=== PATIENT | male | born 1990 | race Asian ===

== ENCOUNTER 2016-10-30 15:21 | Inpatient (IN) | payer OTHER ==
[~2016-10-30] VITALS: Ht 162.6 cm; Wt 65.4 kg
[2016-10-30] MEDS ORDERED: LABETALOL 20 MG/4 ML DISP.SYRIN. IVP ONE (16:15)
[2016-10-30 16:18] LABS: BASO % 0 % (0-3); EOS % 2 % (0-3); HEMATOCRIT 37.7 % (39.0-53.0); HEMOGLOBIN 12.7 g/dL (13.0-17.5); LYMPH # 1.1 x10^3/uL (1.0-4.8); LYMPH % 14 % (24-48); MEAN CORPUSCULAR HEMOGLOBIN 30 pg (25-35); MEAN CORPUSCULAR HGB CONC 34 g/dL (31-37); MEAN CORPUSCULAR VOLUME 91 fL (79-100); MONO % 7 % (0-9); NEUT % 77 % (31-73); PLATELET COUNT 247 x10^3/uL (140-400); RED BLOOD COUNT 4.16 x10^6/uL (4.30-5.70); RED CELL DISTRIBUTION WIDTH 12.5 % (11.5-14.5); WHITE BLOOD COUNT 7.8 x10^3/uL (4.0-11.0)
[2016-10-30 16:20] LABS: BILIRUBIN,URINE NEGATIVE (NEG); GLUCOSE,URINE NEGATIVE (NEG); NITRITE,URINE NEGATIVE (NEG); PH,URINE 5.5; PROTEIN,URINE >=300 mg/dL (NEG-TRACE); UROBILINOGEN,URINE 0.2 mg/dL (0.2 mg/dL)
--- NOTE | 2016-10-30 16:21 | EKG ---
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
--- NOTE | 2016-10-30 16:22 | RAD ---
Indication cough for 3 days. A single view of the chest was obtained. No prior imaging is available. The heart and pulmonary vessels are within normal limits. A focal infiltrate in either lung is not seen. Significant pleural fluid is not present. There is no pneumothorax. IMPRESSION: No acute or focal process seen in the chest
[2016-10-30 16:34] LABS: BACTERIA,URINE 0 /HPF (0-FEW); RBC,URINE >40 /HPF (0-2)
[2016-10-30 16:34] LABS: POTASSIUM ISTAT 5.2 mmol/L (3.5-5.0)
[2016-10-30 16:37] LABS: CALCIUM 8.3 mg/dL (8.5-10.1); CREATININE 5.8 mg/dL (0.7-1.3); POTASSIUM 5.3 mmol/L (3.5-5.1)
[2016-10-30 16:43] LABS: ALBUMIN 2.4 g/dL (3.4-5.0); ALBUMIN/GLOBULIN RATIO 0.7 (1.0-1.7); TOTAL BILIRUBIN 0.3 mg/dL (0.2-1.0); TOTAL PROTEIN 5.8 g/dL (6.4-8.2)
--- NOTE | 2016-10-30 17:17 | PHYS DOC ---
Past Medical History Past Medical History: No Pertinent History Past Surgical History: No Surgical History Alcohol Use: Occasionally Drug Use: None Adult General Chief Complaint Chief Complaint: LOWER EXTREMITY SWELLING HPI HPI Patient is a 25 year old male who presents with complaint of bilateral lower extremity swelling. Patient states his symptoms started 3 weeks ago. Patient states that he has gradually worsened during that time. Patient also notes that he started noticing penile swelling approximately 2 weeks prior to his visit today. Patient denies any fevers, chest pain, or shortness of breath. Patient does admit to mild persistent cough. Patient has not had any recent travel from the [facility]. Patient denies any significant past medical history and does not take any medications on a regular basis. Due to persistent and worsening symptoms the patient came to the emergency department for evaluation. Patient does not follow with a primary care physician at this time. Review of Systems Review of Systems Constitutional: Denies fever or chills [] Eyes: Denies change in visual acuity, redness, or eye pain [] HENT: Denies nasal congestion or sore throat [] Respiratory: Cough, denies shortness breath [] Cardiovascular: Bilateral lower extremity edema, denies chest pain [] GI: Denies abdominal pain, nausea, vomiting, bloody stools or diarrhea [] : Denies dysuria or hematuria [] Musculoskeletal: Denies back pain or joint pain [] Integument: Denies rash or skin lesions [] Neurologic: Denies headache, focal weakness or sensory changes [] Current Medications Current Medications Current Medications Medications (Trade) Dose Ordered Sig/Alexander Start Time Stop Time Status Last Admin Dose Admin Labetalol HCl (Normodyne) 20 mg 1X ONCE 10/30/16 16:15 10/30/16 16:16 DC 10/30/16 16:21 20 MG Allergies Allergies Allergies Coded Allergies Type Severity Reaction Last Updated Verified No Known Drug Allergies 10/30/16 No Physical Exam Physical Exam Constitutional: Alert, afebrile, no acute distress. [] HENT: Normocephalic, atraumatic, bilateral external ears normal, oropharynx moist, no oral exudates, nose normal. [] Eyes: PERRLA, EOMI, conjunctiva normal, no discharge. [] Neck: Normal range of motion, no tenderness, jugular venous pulsations and distention present, supple, no stridor. [] Cardiovascular:Heart rate regular rhythm, no murmur [] Lungs & Thorax: Bilateral breath sounds clear to auscultation [] Abdomen: Bowel sounds normal, soft, no tenderness, no masses, no pulsatile masses. : Uncircumcised, mild to moderate edema of foreskin and scrotum present, no erythema [] Skin: Warm, dry, no erythema, no rash. [] Back: No tenderness, no CVA tenderness. [] Extremities: No tenderness, no cyanosis, no clubbing, ROM intact, 3+ pitting edema in the bilateral lower extremities extending proximally to the bilateral thighs. [] Neurologic: Alert and oriented X 3, normal motor function, normal sensory function, no focal deficits noted. [] Current Patient Data Vital Signs Vital Signs Date Time Temp Pulse Resp B/P Pulse Ox O2 Delivery O2 Flow Rate FiO2 10/30/16 16:21 68 173/114 10/30/16 15:28 98.4 18 98 Room Air 98.4 Lab Values Laboratory Tests Test 10/30/16 16:09 10/30/16 16:18 10/30/16 16:20 White Blood Count 7.8x10^3/uL (4.0-11.0) Red Blood Count 4.16x10^6/uL (4.30-5.70) L Hemoglobin 12.7g/dL (13.0-17.5) L Hematocrit 37.7% (39.0-53.0) L Mean Corpuscular Volume 91fL (79-100) Mean Corpuscular Hemoglobin 30pg (25-35) Mean Corpuscular Hemoglobin Concent 34g/dL (31-37) Red Cell Distribution Width 12.5% (11.5-14.5) Platelet Count 247x10^3/uL (140-400) Neutrophils (%) (Auto) 77% (31-73) H Lymphocytes (%) (Auto) 14% (24-48) L Monocytes (%) (Auto) 7% (0-9) Eosinophils (%) (Auto) 2% (0-3) Basophils (%) (Auto) 0% (0-3) Neutrophils # (Auto) 6.0x10^3uL (1.8-7.7) Lymphocytes # (Auto) 1.1x10^3/uL (1.0-4.8) Monocytes # (Auto) 0.6x10^3/uL (0.0-1.1) Eosinophils # (Auto) 0.1x10^3/uL (0.0-0.7) Basophils # (Auto) 0.0x10^3/uL (0.0-0.2) Urine Collection Type Unknown Urine Color Yellow Urine Clarity Clear Urine pH 5.5 Urine Specific [place] 1.015 Urine Protein >=300mg/dL (NEG-TRACE) Urine Glucose (UA) Negativemg/dL (NEG) Urine Ketones (Stick) Negativemg/dL (NEG) Urine Blood Large (NEG) Urine Nitrite Negative (NEG) Urine Bilirubin Negative (NEG) Urine Urobilinogen Dipstick 0.2mg/dL (0.2 mg/dL) Urine Leukocyte Esterase Negative (NEG) Urine RBC >40/HPF (0-2) Urine WBC 1-4/HPF (0-4) Urine Bacteria 0/HPF (0-FEW) Urine Hyaline Casts Moderate/HPF Urine Granular Casts Few/HPF Urine Waxy Casts Few/HPF Sodium Level 144mmol/L (136-145) Potassium Level 5.3mmol/L (3.5-5.1) H Chloride Level 112mmol/L (98-107) H Carbon Dioxide Level 22mmol/L (21-32) Anion Gap 10 (6-14) 17mmol/L (6-14) H Blood Urea Nitrogen 51mg/dL (8-26) H Creatinine 5.8mg/dL (0.7-1.3) H Estimated GFR (Cockcroft-Gault) 12.0 BUN/Creatinine Ratio 9 (6-20) Glucose Level 106mg/dL (70-99) H 95mg/dL (70-99) Calcium Level 8.3mg/dL (8.5-10.1) L Total Bilirubin 0.3mg/dL (0.2-1.0) Aspartate Amino Transferase (AST) 12U/L (15-37) L Alanine Aminotransferase (ALT) 14U/L (16-63) L Alkaline Phosphatase 89U/L (46-116) Creatine Kinase 118U/L (39-308) Creatine Kinase MB (Mass) 1.0ng/mL (0.0-3.6) Creatine Kinase MB Relative Index 0.8% (0-4) Troponin I Quantitative < 0.017ng/mL (0.000-0.055) UM-Zln-G-Type Natriuretic Peptide 777pg/mL (0-124) H Total Protein 5.8g/dL (6.4-8.2) L Albumin 2.4g/dL (3.4-5.0) L Albumin/Globulin Ratio 0.7 (1.0-1.7) L POC Troponin I 0.01ng/ml (<0.08) POC Hemoglobin 11.2g/dL (14-18) L POC Hematocrit 33% (37-52) L POC Sodium 142mmol/L (135-145) POC Potassium 5.2mmol/L (3.5-5.0) H POC Chloride 111mmol/L (98-110) H POC Total CO2 19mmol/L (23-32) L POC Blood Urea Nitrogen 44mg/dL (8-26) H POC Creatinine 5.9mg/dL (0.5-1.4) H POC Ionized Calcium (Mahad) 1.21mmol/L (1.13-1.32) Laboratory Tests 10/30/16 16:09 Laboratory Tests 10/30/16 16:09 10/30/16 16:20 EKG EKG Interpreted by me: Heart rate 72, sinus rhythm, normal intervals, normal axis, no acute ST elevations or depressions, hyperacute T waves present [] Radiology/Procedures Radiology/Procedures [facility] [address] [place] [address] IMAGING REPORT Signed PATIENT: LOVE RAY ACCOUNT: [id number] : 1990 LOCATION: ER AGE: 25 SEX: M EXAM STATUS: REG ER ORD. PHYSICIAN: JERO TALAVERA MD REASON: edema, cough PROCEDURE: PORTABLE CHEST 1V Indication cough for 3 days. A single view of the chest was obtained. No prior imaging is available. The heart and pulmonary vessels are within normal limits. A focal infiltrate in either lung is not seen. Significant pleural fluid is not present. There is no pneumothorax. IMPRESSION: No acute or focal process seen in the chest DICTATED and SIGNED BY: LITO LACY MD DATE: 10/30/16 1619 CC: JERO TALAVERA MD; NO PCP ~ [] Course & Med Decision Making Course & Med Decision Making Pertinent Labs and Imaging studies reviewed. (See chart for details) Patient was found to have significantly elevated blood pressure in the emergency department and was started on treatment with IV labetalol. The patient 's lab work shows severe acute renal failure and shows a high amount of proteinuria. Etiology of patient's nephrotic syndrome appears unclear. The patient will require admission to the hospital for further treatment of blood pressure and renal failure as well as further evaluation to determine etiology. I spoke with Dr. Chase who accepted care patient in hospital. A consult was placed to Dr. Elena of nephrology to follow with patient in hospital. Dragon Disclaimer Dragon Disclaimer This electronic medical record was generated, in whole or in part, using a voice recognition dictation system. Departure Departure Impression: Primary Impression: Acute renal failure (ARF) Additional Impressions: Proteinuria Peripheral edema Accelerated hypertension Disposition: ADMITTED INPATIENT Admitting Physician: Mariangel Chase Condition: GUARDED Referrals: NO PCP (PCP) Problem Qualifiers Primary Impression: Acute renal failure (ARF) Acute renal failure type: unspecified Qualified Code: N17.9 - Acute kidney failure, unspecified Additional Impressions: Proteinuria Proteinuria type: unspecified Qualified Code: R80.9 - Proteinuria, unspecified JERO TALAVERA MD Oct 30, 2016 17:17
[2016-10-30] MEDS ORDERED: SODIUM POLYSTYRENE SULFONATE 15 GM/60 ML ORAL.SUSP. PO ONE (17:30)
[2016-10-30] MEDS ORDERED: ONDANSETRON PF 4 MG/2 ML VIAL. IV PRN ×2 (17:30)
--- NOTE | 2016-10-30 17:31 | PDOC1 ---
History and Physical Date of Admission Date of Admission 10/30/16 Identification/Chief Complaint Chief Complaint bl leg edema Problems: Source Source: Caregiver, Chart review, Patient History of Present Illness History of Present Illness HPI Patient is a 25 year old male who presents with complaint of bilateral lower extremity swelling for 3 weeks. Pt has stayed in [place], [facility], cannot speak French, his niece helped to translate. Pt has been healthy, first time to notice bl leg edema till groin since 3 weeks ago, no pain or recent travel, denies any infection, N/V, DIarrhea , abd pain recently. He has some cough since 1 month ago, took some cough meds over the counter. Never seen a doc recently. no fever, chills. He said urination looks normal to him. in ER, was found Cr 5. He knew he has HTN, but never took meds. Past Medical History Cardiovascular: HTN Past Surgical History Past Surgical History: No pertinent history Family History Family History: No Significant Social History Smoke: No ALCOHOL: occassional Drugs: None Current Problem List Problem List Problems Medical Problems: (1) Accelerated hypertension Status: Acute (2) Acute renal failure (ARF) Status: Acute (3) Peripheral edema Status: Acute (4) Proteinuria Status: Acute Current Medications Current Medications Current Medications Medications (Trade) Dose Ordered Sig/Alexander Start Time Stop Time Status Last Admin Dose Admin Labetalol HCl (Normodyne) 20 mg 1X ONCE 10/30/16 16:15 10/30/16 16:16 DC 10/30/16 16:21 20 MG Ondansetron HCl (Zofran) 4 mg PRN Q8HRS PRN 10/30/16 17:30 10/31/16 17:29 Allergies Allergies Allergies Coded Allergies Type Severity Reaction Last Updated Verified No Known Drug Allergies 10/30/16 No ROS Review of System CONSTITUTIONAL: No fever or chills EYES: No recent changes SKIN: No rash or itching CARDIOVASCULAR: No chest pain, syncope, palpitations, or edema RESPIRATORY: No SOB or cough GASTROINTESTINAL: No nausea, vomiting or abdominal pain NEUROLOGICAL: No headaches or weakness ENDOCRINE: No cold or heat intolerance GENITOURINARY: No urgency or frequency of urination MUSCULOSKELETAL: No back pain or joint pain LYMPHATICS: No enlarged lymph nodes PSYCHIATRIC: No anxiety or depression Physical Exam Physical Exam GEN.: No apparent distress. Alert and oriented. HEENT: Head is normocephalic, atraumatic NECK: Supple. LUNGS: Clear to auscultation. HEART: RRR, S1, S2 present. Peripheral pulses intact ABDOMEN: Soft, nontender. Positive bowel sounds. EXTREMITIES: Without any cyanosis. bl lower ext 3+edema NEUROLOGIC: Normal speech, normal tone PSYCHIATRIC: Normal affect, normal mood. SKIN: No ulcerations Vitals Vitals Vital Signs Date Time Temp Pulse Resp B/P Pulse Ox O2 Delivery O2 Flow Rate FiO2 10/30/16 16:21 68 173/114 10/30/16 15:28 98.4 18 98 Room Air 98.4 Labs Labs Laboratory Tests Test 10/30/16 16:09 10/30/16 16:18 10/30/16 16:20 White Blood Count 7.8x10^3/uL (4.0-11.0) Red Blood Count 4.16x10^6/uL (4.30-5.70) Hemoglobin 12.7g/dL (13.0-17.5) Hematocrit 37.7% (39.0-53.0) Mean Corpuscular Volume 91fL (79-100) Mean Corpuscular Hemoglobin 30pg (25-35) Mean Corpuscular Hemoglobin Concent 34g/dL (31-37) Red Cell Distribution Width 12.5% (11.5-14.5) Platelet Count 247x10^3/uL (140-400) Neutrophils (%) (Auto) 77% (31-73) Lymphocytes (%) (Auto) 14% (24-48) Monocytes (%) (Auto) 7% (0-9) Eosinophils (%) (Auto) 2% (0-3) Basophils (%) (Auto) 0% (0-3) Neutrophils # (Auto) 6.0x10^3uL (1.8-7.7) Lymphocytes # (Auto) 1.1x10^3/uL (1.0-4.8) Monocytes # (Auto) 0.6x10^3/uL (0.0-1.1) Eosinophils # (Auto) 0.1x10^3/uL (0.0-0.7) Basophils # (Auto) 0.0x10^3/uL (0.0-0.2) Urine Collection Type Unknown Urine Color Yellow Urine Clarity Clear Urine pH 5.5 Urine Specific [place] 1.015 Urine Protein >=300mg/dL (NEG-TRACE) Urine Glucose (UA) Negativemg/dL (NEG) Urine Ketones (Stick) Negativemg/dL (NEG) Urine Blood Large (NEG) Urine Nitrite Negative (NEG) Urine Bilirubin Negative (NEG) Urine Urobilinogen Dipstick 0.2mg/dL (0.2 mg/dL) Urine Leukocyte Esterase Negative (NEG) Urine RBC >40/HPF (0-2) Urine WBC 1-4/HPF (0-4) Urine Bacteria 0/HPF (0-FEW) Urine Hyaline Casts Moderate/HPF Urine Granular Casts Few/HPF Urine Waxy Casts Few/HPF Sodium Level 144mmol/L (136-145) Potassium Level 5.3mmol/L (3.5-5.1) Chloride Level 112mmol/L (98-107) Carbon Dioxide Level 22mmol/L (21-32) Anion Gap 10 (6-14) 17mmol/L (6-14) Blood Urea Nitrogen 51mg/dL (8-26) Creatinine 5.8mg/dL (0.7-1.3) Estimated GFR (Cockcroft-Gault) 12.0 BUN/Creatinine Ratio 9 (6-20) Glucose Level 106mg/dL (70-99) 95mg/dL (70-99) Calcium Level 8.3mg/dL (8.5-10.1) Total Bilirubin 0.3mg/dL (0.2-1.0) Aspartate Amino Transf (AST/SGOT) 12U/L (15-37) Alanine Aminotransferase (ALT/SGPT) 14U/L (16-63) Alkaline Phosphatase 89U/L (46-116) Creatine Kinase 118U/L (39-308) Creatine Kinase MB (Mass) 1.0ng/mL (0.0-3.6) Creatine Kinase MB Relative Index 0.8% (0-4) Troponin I Quantitative < 0.017ng/mL (0.000-0.055) PE-Szx-S-Type Natriuretic Peptide 777pg/mL (0-124) Total Protein 5.8g/dL (6.4-8.2) Albumin 2.4g/dL (3.4-5.0) Albumin/Globulin Ratio 0.7 (1.0-1.7) Bedside Troponin I 0.01ng/ml (<0.08) Bedside Hemoglobin 11.2g/dL (14-18) Bedside Hematocrit 33% (37-52) Bedside Sodium 142mmol/L (135-145) Bedside Potassium 5.2mmol/L (3.5-5.0) Bedside Chloride 111mmol/L (98-110) Bedside Total CO2 19mmol/L (23-32) Bedside Blood Urea Nitrogen 44mg/dL (8-26) Bedside Creatinine 5.9mg/dL (0.5-1.4) Bedside Ionized Calcium (Mahad) 1.21mmol/L (1.13-1.32) Laboratory Tests Test 10/30/16 16:09 10/30/16 16:18 10/30/16 16:20 White Blood Count 7.8x10^3/uL (4.0-11.0) Red Blood Count 4.16x10^6/uL (4.30-5.70) Hemoglobin 12.7g/dL (13.0-17.5) Hematocrit 37.7% (39.0-53.0) Mean Corpuscular Volume 91fL (79-100) Mean Corpuscular Hemoglobin 30pg (25-35) Mean Corpuscular Hemoglobin Concent 34g/dL (31-37) Red Cell Distribution Width 12.5% (11.5-14.5) Platelet Count 247x10^3/uL (140-400) Neutrophils (%) (Auto) 77% (31-73) Lymphocytes (%) (Auto) 14% (24-48) Monocytes (%) (Auto) 7% (0-9) Eosinophils (%) (Auto) 2% (0-3) Basophils (%) (Auto) 0% (0-3) Neutrophils # (Auto) 6.0x10^3uL (1.8-7.7) Lymphocytes # (Auto) 1.1x10^3/uL (1.0-4.8) Monocytes # (Auto) 0.6x10^3/uL (0.0-1.1) Eosinophils # (Auto) 0.1x10^3/uL (0.0-0.7) Basophils # (Auto) 0.0x10^3/uL (0.0-0.2) Urine Collection Type Unknown Urine Color Yellow Urine Clarity Clear Urine pH 5.5 Urine Specific [place] 1.015 Urine Protein >=300mg/dL (NEG-TRACE) Urine Glucose (UA) Negativemg/dL (NEG) Urine Ketones (Stick) Negativemg/dL (NEG) Urine Blood Large (NEG) Urine Nitrite Negative (NEG) Urine Bilirubin Negative (NEG) Urine Urobilinogen Dipstick 0.2mg/dL (0.2 mg/dL) Urine Leukocyte Esterase Negative (NEG) Urine RBC >40/HPF (0-2) Urine WBC 1-4/HPF (0-4) Urine Bacteria 0/HPF (0-FEW) Urine Hyaline Casts Moderate/HPF Urine Granular Casts Few/HPF Urine Waxy Casts Few/HPF Sodium Level 144mmol/L (136-145) Potassium Level 5.3mmol/L (3.5-5.1) Chloride Level 112mmol/L (98-107) Carbon Dioxide Level 22mmol/L (21-32) Anion Gap 10 (6-14) 17mmol/L (6-14) Blood Urea Nitrogen 51mg/dL (8-26) Creatinine 5.8mg/dL (0.7-1.3) Estimated GFR (Cockcroft-Gault) 12.0 BUN/Creatinine Ratio 9 (6-20) Glucose Level 106mg/dL (70-99) 95mg/dL (70-99) Calcium Level 8.3mg/dL (8.5-10.1) Total Bilirubin 0.3mg/dL (0.2-1.0) Aspartate Amino Transf (AST/SGOT) 12U/L (15-37) Alanine Aminotransferase (ALT/SGPT) 14U/L (16-63) Alkaline Phosphatase 89U/L (46-116) Creatine Kinase 118U/L (39-308) Creatine Kinase MB (Mass) 1.0ng/mL (0.0-3.6) Creatine Kinase MB Relative Index 0.8% (0-4) Troponin I Quantitative < 0.017ng/mL (0.000-0.055) ZK-Brq-N-Type Natriuretic Peptide 777pg/mL (0-124) Total Protein 5.8g/dL (6.4-8.2) Albumin 2.4g/dL (3.4-5.0) Albumin/Globulin Ratio 0.7 (1.0-1.7) Bedside Troponin I 0.01ng/ml (<0.08) Bedside Hemoglobin 11.2g/dL (14-18) Bedside Hematocrit 33% (37-52) Bedside Sodium 142mmol/L (135-145) Bedside Potassium 5.2mmol/L (3.5-5.0) Bedside Chloride 111mmol/L (98-110) Bedside Total CO2 19mmol/L (23-32) Bedside Blood Urea Nitrogen 44mg/dL (8-26) Bedside Creatinine 5.9mg/dL (0.5-1.4) Bedside Ionized Calcium (Mahad) 1.21mmol/L (1.13-1.32) VTE Prophylaxis Ordered VTE Prophylaxis Devices: Yes VTE Pharmacological Prophylaxi: Yes Assessment/Plan Assessment/Plan 1. TITUS, 2/2 acute nephritis likely 2. bl leg edema 2/2 1 3. accelerated HTN 4. proteinuria 5. hyperkalemia 6. mild malnutrition plan: 1. renal consult, need full work up for nephritis, defer to renal 2. Renal US 3. KAYexalate 4. add amlodipine for htn dvt ppx SW for insurance problem RORY SHAH MD Oct 30, 2016 17:31
[2016-10-30] MEDS ORDERED: amLODIPine BESYLATE 5 MG TABLET PO SCH (18:00)
--- NOTE | 2016-10-30 18:42 | ACF ---
Admission Forms Criteria RENAL FAILURE, ACUTE Clinical Indications for Admission to Inpatient Care ( Place 'X' for any and all applicable criteria): Admission is indicated for ALL (if I & II) or III of the following [A](2)(3)(4)( 5)(6)(7): [X]I. Acute renal failure as indicated by ANY ONE of the following: [X]a) A 3-fold rise in serum creatinine from baseline [ ]b) Serum creatinine greater than 4 mg/dL (354 micromoles/L) with an acute rise greater than 0.5 mg/dL (44.2 micromoles/L) [ ]c) Reduction of more than 75% in estimated glomerular filtration rate from baseline [ ]d) Estimated glomerular filtration rate less than 35 mL/min/1.73m2 (0.59mL/sec/1.73m2)in a child up to 18 years of age [ ]e) Anuria indicated by ALL of the following: [ ]i) Adequate volume status [ ]ii) Cessation of urine output indicated by ANY ONE of the following: [ ]1) Urine output less than 0.3 mL/kg/hr for 24 hours [ ]2) Anuria (urine output less than 0.1 mL/kg/ hr) for 12 hours [X] II. Renal failure cannot be managed in an outpatient setting or observational care setting as indicating by ANY ONE of the following: [ ]a) Altered mental status that is severe or persistent [ ]b) Volume overload or Respiratory distress (eg, clinically significant pulmonary edema) that is severe or persistent [ ]c) Cardiac arrhythmias of immediate concern [ ]d) Hemodynamic instability [ ]e) Clinically significant electrolyte abnormality that requires inpatient care (eg, hyperkalemia with severe ECG findings)[B] [ ]f) Clinically significant metabolic abnormality (eg, acidosis) that is severe or persistent [ ]g) Acute treatment of renal failure (eg, renal replacement therapy) not feasible or appropriate in observational care setting [ ]h) Clinical situation too unstable or uncertain (eg, inadequate urine output, ongoing decline in renal function, etiology unclear) [ ]i) Necessary support and caregiver ability to comply with outpatient treatment cannot be arranged in observation care timeframe (eg, within 24 hours) [X]j) Other significant finding or clinical condition judged not to be within scope of observation care [ ]III.General contraindications and/or Inappropriate clinical situations for Observational Care in patients with Acute Renal Failure, when ANY ONE of the following is required: [ ]a) Prediction of prolongation of LOS based on ANY ONE of the following may be considered as a contraindication for observational care 2, 3, 4, 5, 6, 7, 8 , 9, 10, 11 [ ]i) Age > 65 yrs. [ ]ii) Patient arriving by ambulance [ ]iii) Patient with high acuity [ ]iv) Patient requiring vital sign monitoring [ ]v) Patient on IV medication [ ]b) Systolic blood pressures 180mmHg 3,12 [ ]c) Patient with altered mental status including delirium and other alteration of consciousness, (3) [ ]d) Patient whose discharge disposition will be to a detention home or rehabilitation home should not be managed in Emergency Department Observation Unit. CMS rule requires 3 days hospital stay before such placement.3,13 [ ]e) Patient with failure to thrive due to broad array of etiologies 3, 16,17 [ ]f) Inability to ambulate 3,14 Extended stay beyond goal length of stay may be needed for(13) [ ]a) Continuing uremic complications [ ]b) Care for comorbidities [ ]c) acute renal failure [ ]d) Need for dialysis The original [employer] content created by [employer] has been revised. The portions of the content which have been revised are identified through the use of italic text or in bold, and [facility] has neither reviewed nor approved the modified material. All other unmodified content is copyright [employer]. Please see references footnoted in the original [facility] edition 2016 Admission Criteria Met?: Yes BRIAN ARELLANO Oct 30, 2016 18:42
--- NOTE | 2016-10-30 18:50 | RAD ---
PROCEDURE Renal sonogram. HISTORY Hypertension. Proteinuria. TECHNIQUE Sonographic imaging of the kidneys and bladder was performed. COMPARISON None. FINDINGS Right kidney measures 10.8 cm pole to pole and the left kidney measures 9.4 cm pole to pole. No solid or cystic renal lesion is seen. There is no hydronephrosis. There are low renal resistive indices. The bladder is unremarkable. The ureteral jets are both seen. The inferior vena cava is prominent in caliber. IMPRESSION 1. Sonographically unremarkable kidneys. 2. Prominent IVC caliber. Electronically signed by: Aidee Jarrett (Oct 30, 2016 18:49:40)
[2016-10-30 20:08] VITALS: BP 143/102
[2016-10-30] MEDS: HEPARIN PF for SUB-Q USE 5,000 UNIT/0.5 ML VIAL. SQ SCH (22:00)
[2016-10-30 22:37] VITALS: BP 166/109
[2016-10-30] MEDS: hydrALAZINE 20 MG/ML VIAL. IVP PRN (22:42)
[2016-10-31 03:00] VITALS: BP 160/110
[2016-10-31] MEDS: hydrALAZINE 20 MG/ML VIAL. IVP PRN (03:18)
[2016-10-31] MEDS: HEPARIN PF for SUB-Q USE 5,000 UNIT/0.5 ML VIAL. SQ SCH ×3 (06:00→21:04)
[2016-10-31 06:02] LABS: BASO # 0.1 x10^3/uL (0.0-0.2); BASO % 1 % (0-3); EOS % 2 % (0-3); HEMATOCRIT 34.6 % (39.0-53.0); HEMOGLOBIN 11.7 g/dL (13.0-17.5); LYMPH # 1.1 x10^3/uL (1.0-4.8); LYMPH % 13 % (24-48); MEAN CORPUSCULAR HEMOGLOBIN 31 pg (25-35); MEAN CORPUSCULAR HGB CONC 34 g/dL (31-37); MEAN CORPUSCULAR VOLUME 90 fL (79-100); MONO % 8 % (0-9); NEUT % 77 % (31-73); PLATELET COUNT 217 x10^3/uL (140-400); RED BLOOD COUNT 3.83 x10^6/uL (4.30-5.70); RED CELL DISTRIBUTION WIDTH 12.5 % (11.5-14.5); WHITE BLOOD COUNT 8.9 x10^3/uL (4.0-11.0)
[2016-10-31 06:16] LABS: CALCIUM 7.9 mg/dL (8.5-10.1); CREATININE 5.9 mg/dL (0.7-1.3); GFR 11.7; POTASSIUM 4.8 mmol/L (3.5-5.1)
[2016-10-31 07:15] VITALS: BP 143/77
[2016-10-31] MEDS: ACETAMINOPHEN 325 MG TABLET. PO PRN (09:15)
[2016-10-31] MEDS: amLODIPine BESYLATE 10 MG TABLET PO SCH (09:15)
[2016-10-31 10:55] LABS: INR 1.1 (0.8-1.1); PROTHROMBIN TIME PATIENT 13.3 SEC (11.7-14.0)
[2016-10-31 11:00] VITALS: BP 145/95
[2016-10-31] MEDS: SODIUM BICARBONATE 650 MG TABLET. PO SCH ×3 (12:39→20:57)
[2016-10-31] MEDS: FUROSEMIDE 40 MG TABLET. PO SCH ×2 (12:39→20:57)
--- NOTE | 2016-10-31 15:00 | PDOC ---
PROGRESS NOTES Chief Complaint Chief Complaint 1. TITUS, 2/2 acute nephritis likely 2. bl leg edema 2/2 1 3. accelerated HTN 4. proteinuria 5. hyperkalemia 6. mild malnutrition History of Present Illness History of Present Illness renal consult following, w/u Renal US s/p KAYexalate on amlodipine Vitals Vitals Vital Signs Date Time Temp Pulse Resp B/P Pulse Ox O2 Delivery O2 Flow Rate FiO2 10/31/16 11:00 96.8 59 18 145/95 100 Room Air 96.8 Physical Exam General: Alert, Oriented X3, Cooperative, No acute distress Heart: Regular rate, No murmurs Abdomen: Normal bowel sounds, Soft Extremities: No clubbing Skin: No rashes Labs LABS Laboratory Tests Test 10/30/16 16:09 10/30/16 16:18 10/30/16 16:20 10/31/16 05:30 White Blood Count 7.8x10^3/uL (4.0-11.0) 8.9x10^3/uL (4.0-11.0) Red Blood Count 4.16x10^6/uL (4.30-5.70) 3.83x10^6/uL (4.30-5.70) Hemoglobin 12.7g/dL (13.0-17.5) 11.7g/dL (13.0-17.5) Hematocrit 37.7% (39.0-53.0) 34.6% (39.0-53.0) Mean Corpuscular Volume 91fL (79-100) 90fL (79-100) Mean Corpuscular Hemoglobin 30pg (25-35) 31pg (25-35) Mean Corpuscular Hemoglobin Concent 34g/dL (31-37) 34g/dL (31-37) Red Cell Distribution Width 12.5% (11.5-14.5) 12.5% (11.5-14.5) Platelet Count 247x10^3/uL (140-400) 217x10^3/uL (140-400) Neutrophils (%) (Auto) 77% (31-73) 77% (31-73) Lymphocytes (%) (Auto) 14% (24-48) 13% (24-48) Monocytes (%) (Auto) 7% (0-9) 8% (0-9) Eosinophils (%) (Auto) 2% (0-3) 2% (0-3) Basophils (%) (Auto) 0% (0-3) 1% (0-3) Neutrophils # (Auto) 6.0x10^3uL (1.8-7.7) 6.8x10^3uL (1.8-7.7) Lymphocytes # (Auto) 1.1x10^3/uL (1.0-4.8) 1.1x10^3/uL (1.0-4.8) Monocytes # (Auto) 0.6x10^3/uL (0.0-1.1) 0.7x10^3/uL (0.0-1.1) Eosinophils # (Auto) 0.1x10^3/uL (0.0-0.7) 0.2x10^3/uL (0.0-0.7) Basophils # (Auto) 0.0x10^3/uL (0.0-0.2) 0.1x10^3/uL (0.0-0.2) Urine Collection Type Unknown Urine Color Yellow Urine Clarity Clear Urine pH 5.5 Urine Specific [place] 1.015 Urine Protein >=300mg/dL (NEG-TRACE) Urine Glucose (UA) Negativemg/dL (NEG) Urine Ketones (Stick) Negativemg/dL (NEG) Urine Blood Large (NEG) Urine Nitrite Negative (NEG) Urine Bilirubin Negative (NEG) Urine Urobilinogen Dipstick 0.2mg/dL (0.2 mg/dL) Urine Leukocyte Esterase Negative (NEG) Urine RBC >40/HPF (0-2) Urine WBC 1-4/HPF (0-4) Urine Bacteria 0/HPF (0-FEW) Urine Hyaline Casts Moderate/HPF Urine Granular Casts Few/HPF Urine Waxy Casts Few/HPF Sodium Level 144mmol/L (136-145) 141mmol/L (136-145) Potassium Level 5.3mmol/L (3.5-5.1) 4.8mmol/L (3.5-5.1) Chloride Level 112mmol/L (98-107) 111mmol/L (98-107) Carbon Dioxide Level 22mmol/L (21-32) 19mmol/L (21-32) Anion Gap 10 (6-14) 17mmol/L (6-14) 11 (6-14) Blood Urea Nitrogen 51mg/dL (8-26) 52mg/dL (8-26) Creatinine 5.8mg/dL (0.7-1.3) 5.9mg/dL (0.7-1.3) Estimated GFR (Cockcroft-Gault) 12.0 11.7 BUN/Creatinine Ratio 9 (6-20) Glucose Level 106mg/dL (70-99) 95mg/dL (70-99) 101mg/dL (70-99) Calcium Level 8.3mg/dL (8.5-10.1) 7.9mg/dL (8.5-10.1) Total Bilirubin 0.3mg/dL (0.2-1.0) Aspartate Amino Transf (AST/SGOT) 12U/L (15-37) Alanine Aminotransferase (ALT/SGPT) 14U/L (16-63) Alkaline Phosphatase 89U/L (46-116) Creatine Kinase 118U/L (39-308) Creatine Kinase MB (Mass) 1.0ng/mL (0.0-3.6) Creatine Kinase MB Relative Index 0.8% (0-4) Troponin I Quantitative < 0.017ng/mL (0.000-0.055) IS-Acs-S-Type Natriuretic Peptide 777pg/mL (0-124) Total Protein 5.8g/dL (6.4-8.2) Albumin 2.4g/dL (3.4-5.0) Albumin/Globulin Ratio 0.7 (1.0-1.7) Bedside Troponin I 0.01ng/ml (<0.08) Bedside Hemoglobin 11.2g/dL (14-18) Bedside Hematocrit 33% (37-52) Bedside Sodium 142mmol/L (135-145) Bedside Potassium 5.2mmol/L (3.5-5.0) Bedside Chloride 111mmol/L (98-110) Bedside Total CO2 19mmol/L (23-32) Bedside Blood Urea Nitrogen 44mg/dL (8-26) Bedside Creatinine 5.9mg/dL (0.5-1.4) Bedside Ionized Calcium (Mahad) 1.21mmol/L (1.13-1.32) Test 10/31/16 10:30 Erythrocyte Sedimentation Rate 29 (0-15) Prothrombin Time 13.3SEC (11.7-14.0) Prothromb Time International Ratio 1.1 (0.8-1.1) Activated Partial Thromboplast Time 32SEC (24-38) Creatine Kinase 91U/L (39-308) Assessment and Plan Assessmemt and Plan Problems Medical Problems: (1) Accelerated hypertension Status: Acute (2) Acute renal failure (ARF) Status: Acute (3) Peripheral edema Status: Acute (4) Proteinuria Status: Acute Problems: Comment Review of Relevant I have reviewed the following items javier (where applicable) has been applied. Labs Laboratory Tests Test 10/30/16 16:09 10/30/16 16:18 10/30/16 16:20 10/31/16 05:30 White Blood Count 7.8x10^3/uL (4.0-11.0) 8.9x10^3/uL (4.0-11.0) Red Blood Count 4.16x10^6/uL (4.30-5.70) 3.83x10^6/uL (4.30-5.70) Hemoglobin 12.7g/dL (13.0-17.5) 11.7g/dL (13.0-17.5) Hematocrit 37.7% (39.0-53.0) 34.6% (39.0-53.0) Mean Corpuscular Volume 91fL (79-100) 90fL (79-100) Mean Corpuscular Hemoglobin 30pg (25-35) 31pg (25-35) Mean Corpuscular Hemoglobin Concent 34g/dL (31-37) 34g/dL (31-37) Red Cell Distribution Width 12.5% (11.5-14.5) 12.5% (11.5-14.5) Platelet Count 247x10^3/uL (140-400) 217x10^3/uL (140-400) Neutrophils (%) (Auto) 77% (31-73) 77% (31-73) Lymphocytes (%) (Auto) 14% (24-48) 13% (24-48) Monocytes (%) (Auto) 7% (0-9) 8% (0-9) Eosinophils (%) (Auto) 2% (0-3) 2% (0-3) Basophils (%) (Auto) 0% (0-3) 1% (0-3) Neutrophils # (Auto) 6.0x10^3uL (1.8-7.7) 6.8x10^3uL (1.8-7.7) Lymphocytes # (Auto) 1.1x10^3/uL (1.0-4.8) 1.1x10^3/uL (1.0-4.8) Monocytes # (Auto) 0.6x10^3/uL (0.0-1.1) 0.7x10^3/uL (0.0-1.1) Eosinophils # (Auto) 0.1x10^3/uL (0.0-0.7) 0.2x10^3/uL (0.0-0.7) Basophils # (Auto) 0.0x10^3/uL (0.0-0.2) 0.1x10^3/uL (0.0-0.2) Urine Collection Type Unknown Urine Color Yellow Urine Clarity Clear Urine pH 5.5 Urine Specific [place] 1.015 Urine Protein >=300mg/dL (NEG-TRACE) Urine Glucose (UA) Negativemg/dL (NEG) Urine Ketones (Stick) Negativemg/dL (NEG) Urine Blood Large (NEG) Urine Nitrite Negative (NEG) Urine Bilirubin Negative (NEG) Urine Urobilinogen Dipstick 0.2mg/dL (0.2 mg/dL) Urine Leukocyte Esterase Negative (NEG) Urine RBC >40/HPF (0-2) Urine WBC 1-4/HPF (0-4) Urine Bacteria 0/HPF (0-FEW) Urine Hyaline Casts Moderate/HPF Urine Granular Casts Few/HPF Urine Waxy Casts Few/HPF Sodium Level 144mmol/L (136-145) 141mmol/L (136-145) Potassium Level 5.3mmol/L (3.5-5.1) 4.8mmol/L (3.5-5.1) Chloride Level 112mmol/L (98-107) 111mmol/L (98-107) Carbon Dioxide Level 22mmol/L (21-32) 19mmol/L (21-32) Anion Gap 10 (6-14) 17mmol/L (6-14) 11 (6-14) Blood Urea Nitrogen 51mg/dL (8-26) 52mg/dL (8-26) Creatinine 5.8mg/dL (0.7-1.3) 5.9mg/dL (0.7-1.3) Estimated GFR (Cockcroft-Gault) 12.0 11.7 BUN/Creatinine Ratio 9 (6-20) Glucose Level 106mg/dL (70-99) 95mg/dL (70-99) 101mg/dL (70-99) Calcium Level 8.3mg/dL (8.5-10.1) 7.9mg/dL (8.5-10.1) Total Bilirubin 0.3mg/dL (0.2-1.0) Aspartate Amino Transf (AST/SGOT) 12U/L (15-37) Alanine Aminotransferase (ALT/SGPT) 14U/L (16-63) Alkaline Phosphatase 89U/L (46-116) Creatine Kinase 118U/L (39-308) Creatine Kinase MB (Mass) 1.0ng/mL (0.0-3.6) Creatine Kinase MB Relative Index 0.8% (0-4) Troponin I Quantitative < 0.017ng/mL (0.000-0.055) BC-Lbl-P-Type Natriuretic Peptide 777pg/mL (0-124) Total Protein 5.8g/dL (6.4-8.2) Albumin 2.4g/dL (3.4-5.0) Albumin/Globulin Ratio 0.7 (1.0-1.7) Bedside Troponin I 0.01ng/ml (<0.08) Bedside Hemoglobin 11.2g/dL (14-18) Bedside Hematocrit 33% (37-52) Bedside Sodium 142mmol/L (135-145) Bedside Potassium 5.2mmol/L (3.5-5.0) Bedside Chloride 111mmol/L (98-110) Bedside Total CO2 19mmol/L (23-32) Bedside Blood Urea Nitrogen 44mg/dL (8-26) Bedside Creatinine 5.9mg/dL (0.5-1.4) Bedside Ionized Calcium (Mahad) 1.21mmol/L (1.13-1.32) Test 10/31/16 10:30 Erythrocyte Sedimentation Rate 29 (0-15) Prothrombin Time 13.3SEC (11.7-14.0) Prothromb Time International Ratio 1.1 (0.8-1.1) Activated Partial Thromboplast Time 32SEC (24-38) Creatine Kinase 91U/L (39-308) Laboratory Tests Test 10/30/16 16:09 10/30/16 16:18 10/30/16 16:20 10/31/16 05:30 White Blood Count 7.8x10^3/uL (4.0-11.0) 8.9x10^3/uL (4.0-11.0) Red Blood Count 4.16x10^6/uL (4.30-5.70) 3.83x10^6/uL (4.30-5.70) Hemoglobin 12.7g/dL (13.0-17.5) 11.7g/dL (13.0-17.5) Hematocrit 37.7% (39.0-53.0) 34.6% (39.0-53.0) Mean Corpuscular Volume 91fL (79-100) 90fL (79-100) Mean Corpuscular Hemoglobin 30pg (25-35) 31pg (25-35) Mean Corpuscular Hemoglobin Concent 34g/dL (31-37) 34g/dL (31-37) Red Cell Distribution Width 12.5% (11.5-14.5) 12.5% (11.5-14.5) Platelet Count 247x10^3/uL (140-400) 217x10^3/uL (140-400) Neutrophils (%) (Auto) 77% (31-73) 77% (31-73) Lymphocytes (%) (Auto) 14% (24-48) 13% (24-48) Monocytes (%) (Auto) 7% (0-9) 8% (0-9) Eosinophils (%) (Auto) 2% (0-3) 2% (0-3) Basophils (%) (Auto) 0% (0-3) 1% (0-3) Neutrophils # (Auto) 6.0x10^3uL (1.8-7.7) 6.8x10^3uL (1.8-7.7) Lymphocytes # (Auto) 1.1x10^3/uL (1.0-4.8) 1.1x10^3/uL (1.0-4.8) Monocytes # (Auto) 0.6x10^3/uL (0.0-1.1) 0.7x10^3/uL (0.0-1.1) Eosinophils # (Auto) 0.1x10^3/uL (0.0-0.7) 0.2x10^3/uL (0.0-0.7) Basophils # (Auto) 0.0x10^3/uL (0.0-0.2) 0.1x10^3/uL (0.0-0.2) Urine Collection Type Unknown Urine Color Yellow Urine Clarity Clear Urine pH 5.5 Urine Specific [place] 1.015 Urine Protein >=300mg/dL (NEG-TRACE) Urine Glucose (UA) Negativemg/dL (NEG) Urine Ketones (Stick) Negativemg/dL (NEG) Urine Blood Large (NEG) Urine Nitrite Negative (NEG) Urine Bilirubin Negative (NEG) Urine Urobilinogen Dipstick 0.2mg/dL (0.2 mg/dL) Urine Leukocyte Esterase Negative (NEG) Urine RBC >40/HPF (0-2) Urine WBC 1-4/HPF (0-4) Urine Bacteria 0/HPF (0-FEW) Urine Hyaline Casts Moderate/HPF Urine Granular Casts Few/HPF Urine Waxy Casts Few/HPF Sodium Level 144mmol/L (136-145) 141mmol/L (136-145) Potassium Level 5.3mmol/L (3.5-5.1) 4.8mmol/L (3.5-5.1) Chloride Level 112mmol/L (98-107) 111mmol/L (98-107) Carbon Dioxide Level 22mmol/L (21-32) 19mmol/L (21-32) Anion Gap 10 (6-14) 17mmol/L (6-14) 11 (6-14) Blood Urea Nitrogen 51mg/dL (8-26) 52mg/dL (8-26) Creatinine 5.8mg/dL (0.7-1.3) 5.9mg/dL (0.7-1.3) Estimated GFR (Cockcroft-Gault) 12.0 11.7 BUN/Creatinine Ratio 9 (6-20) Glucose Level 106mg/dL (70-99) 95mg/dL (70-99) 101mg/dL (70-99) Calcium Level 8.3mg/dL (8.5-10.1) 7.9mg/dL (8.5-10.1) Total Bilirubin 0.3mg/dL (0.2-1.0) Aspartate Amino Transf (AST/SGOT) 12U/L (15-37) Alanine Aminotransferase (ALT/SGPT) 14U/L (16-63) Alkaline Phosphatase 89U/L (46-116) Creatine Kinase 118U/L (39-308) Creatine Kinase MB (Mass) 1.0ng/mL (0.0-3.6) Creatine Kinase MB Relative Index 0.8% (0-4) Troponin I Quantitative < 0.017ng/mL (0.000-0.055) FW-Afh-V-Type Natriuretic Peptide 777pg/mL (0-124) Total Protein 5.8g/dL (6.4-8.2) Albumin 2.4g/dL (3.4-5.0) Albumin/Globulin Ratio 0.7 (1.0-1.7) Bedside Troponin I 0.01ng/ml (<0.08) Bedside Hemoglobin 11.2g/dL (14-18) Bedside Hematocrit 33% (37-52) Bedside Sodium 142mmol/L (135-145) Bedside Potassium 5.2mmol/L (3.5-5.0) Bedside Chloride 111mmol/L (98-110) Bedside Total CO2 19mmol/L (23-32) Bedside Blood Urea Nitrogen 44mg/dL (8-26) Bedside Creatinine 5.9mg/dL (0.5-1.4) Bedside Ionized Calcium (Mahad) 1.21mmol/L (1.13-1.32) Test 10/31/16 10:30 Erythrocyte Sedimentation Rate 29 (0-15) Prothrombin Time 13.3SEC (11.7-14.0) Prothromb Time International Ratio 1.1 (0.8-1.1) Activated Partial Thromboplast Time 32SEC (24-38) Creatine Kinase 91U/L (39-308) Medications Current Medications Labetalol HCl (Normodyne) 20 mg 1X ONCE IVP Last administered on 10/30/16 16: 21; Start 10/30/16 at 16:15; Stop 10/30/16 at 16:16; Status DC Ondansetron HCl (Zofran) 4 mg PRN Q8HRS PRN IV NAUSEA/VOMITING; Start 10/30/16 at 17:30; Stop 10/31/16 at 17:29 Acetaminophen (Tylenol) 650 mg PRN Q6HRS PRN PO FEVER Last administered on 10/31 09:15; Start 10/30/16 at 17:30 Ondansetron HCl (Zofran) 4 mg PRN Q6HRS PRN IV NAUSEA/VOMITING; Start 10/30/16 at 17:30 Hydralazine HCl (Apresoline) 10 mg PRN Q4HRS PRN IVP ELEVATED BP, SEE COMMENTS Last administered on 10/31/16 03:18; Start 10/30/16 at 17:30 Amlodipine Besylate (Norvasc) 10 mg DAILY PO Last administered on 10/30/16 18: 29; Start 10/30/16 at 18:00; Stop 10/30/16 at 23:59; Status DC Sodium Polystyrene Sulfonate (Kayexalate) 15 gm 1X ONCE PO Last administered on 10/30/16 17:34; Start 10/30/16 at 17:30; Stop 10/30/16 at 17:31; Status DC Amlodipine Besylate (Norvasc) 10 mg DAILY PO Last administered on 10/31/16 09: 15; Start 10/31/16 at 09:00 Heparin Sodium (Porcine) 5,000 unit Q8HRS SQ ; Start 10/30/16 at 22:00 Sodium Bicarbonate (Sodium Bicarbonate) 1,300 mg TID PO Last administered on 12:39; Start 10/31/16 at 11:00 Furosemide (Lasix) 40 mg BID PO Last administered on 10/31/16 12:39; Start at 11:00 Vitals/I & O Vital Sign - Last 24 Hours 410/30/16 10/30/16 10/30/16 15:28 16:21 16:30 17:30 Temp 98.4 98.4 Pulse 73 68 66 70 Resp B/P 155/99 173/114 152/103 150/98 Pulse Ox 98 99 99 O2 Delivery Room Air Room Air Room Air 10/30/16 10/30/16 10/30/16 10/30/16 18:29 18:30 19:25 20:08 Temp 97.6 97.6 Pulse 65 64 72 63 Resp B/P 150/115 150/115 167/108 143/102 Pulse Ox 99 99 100 O2 Delivery Room Air Room Air Room Air 10/30/16 10/30/16 10/31/16 10/31/16 22:37 22:42 03:00 03:18 Temp 98.1 98.2 98.1 98.2 Pulse 73 77 79 79 Resp B/P 166/109 167/109 160/110 160/110 Pulse Ox 100 100 O2 Delivery Room Air Room Air 10/31/16 10/31/16 10/31/16 07:15 09:15 11:00 Temp 99.7 96.8 99.7 96.8 Pulse 81 59 Resp B/P 143/77 143/77 145/95 Pulse Ox 97 100 O2 Delivery Room Air Room Air Intake and Output 10/30/16 10/30/16 10/31/16 15:00 23:00 07:00 Intake Total 800 ml Balance 800 ml GEO FLORES MD Oct 31, 2016 15:00
[2016-10-31 15:05] VITALS: BP 159/96
[2016-10-31 15:45] LABS: BILIRUBIN,URINE NEGATIVE (NEG); GLUCOSE,URINE NEGATIVE (NEG); NITRITE,URINE NEGATIVE (NEG); PH,URINE 5.5; PROTEIN,URINE >=300 mg/dL (NEG-TRACE); UROBILINOGEN,URINE 0.2 mg/dL (0.2 mg/dL)
[2016-10-31 15:55] LABS: BACTERIA,URINE 0 /HPF (0-FEW); RBC,URINE 20-40 /HPF (0-2)
[2016-10-31 18:13] LABS: C3 COMPLEMENT 102 mg/dL (82-167); C4 COMPLEMENT 39 mg/dL (14-44)
[2016-10-31 19:00] VITALS: BP 135/88
[2016-10-31 23:00] VITALS: BP 155/109
[2016-11-01] VITALS (7 sets, daily range): BP systolic 129–159; BP diastolic 82–99
[2016-11-01 03:17] LABS: HEP A IGM ABDY Negative (Negative); HEP B SURFACE ABDY Reactive (.)
[2016-11-01 04:54] LABS: BASO % 0 % (0-3); EOS % 3 % (0-3); HEMATOCRIT 34.4 % (39.0-53.0); HEMOGLOBIN 11.6 g/dL (13.0-17.5); LYMPH # 1.3 x10^3/uL (1.0-4.8); LYMPH % 14 % (24-48); MEAN CORPUSCULAR HEMOGLOBIN 31 pg (25-35); MEAN CORPUSCULAR HGB CONC 34 g/dL (31-37); MEAN CORPUSCULAR VOLUME 90 fL (79-100); MONO % 6 % (0-9); NEUT % 77 % (31-73); PLATELET COUNT 242 x10^3/uL (140-400); RED BLOOD COUNT 3.82 x10^6/uL (4.30-5.70); RED CELL DISTRIBUTION WIDTH 12.8 % (11.5-14.5); WHITE BLOOD COUNT 9.2 x10^3/uL (4.0-11.0)
--- NOTE | 2016-11-01 05:07 | CONS ---
DATE OF CONSULTATION: HISTORY OF PRESENT ILLNESS: The patient is a pleasant 25-year-old gentleman of descent, who tells me he is from [place], works at the [employer]. He is not aware of known health problems. He had lower extremity swelling and presented to the ER where he was noted to have significant elevated blood pressure and was admitted to the hospital after he was found to have a creatinine of 5.8. He was also felt to be nephrotic with a serum albumin of 2.4 and a UA showing significant amount of protein as well as large amount of blood and rbc's. No significant wbc's. He does have casts ____ noted on his UA. We are asked to see him for the same. PAST MEDICAL HISTORY: Negative. FAMILY HISTORY: Negative. SOCIAL HISTORY: Occasional alcohol use, no drug use that he admits to. REVIEW OF SYSTEMS: Currently negative other than slight edema in the lower extremities. PHYSICAL EXAMINATION: VITAL SIGNS: 143/77, temp of 99.7, pulse 81, 97% room air. GENERAL: Awake, alert, oriented, in no apparent distress. HEAD: NC/AT. LUNGS: Clear to auscultation. CARDIOVASCULAR: Heart sounds, S1, S2. ABDOMEN: Soft. EXTREMITIES: Lower extremities have +1 edema. EXTERNAL GENITALIA: Deferred. LABORATORY DATA: As mentioned previously, potassium 4.8, bicarb 19, gap 11, BUN 52, creatinine ____ 5.9, calcium 7.9, hemoglobin is 11.7. IMAGING: Renal sonogram, right kidney 10.8 cm, left kidney 9.4 cm. No solid or cystic renal lesions, no hydronephrosis, low renal resistive indices, bladder is unremarkable, ureteral jets seen on both sides, IVC prominent in caliber. IMPRESSION, ASSESSMENT AND PLAN: 1. Acute renal failure, baseline creatinine not known. Suspect acute glomerulonephritis, cannot rule out nephrotic syndrome. 2. Proteinuria. We will quantitate with 24-hour urine. 3. Metabolic acidosis. Oral bicarb will be started. 4. Nephritic appearing urine. Suspect glomerulonephritis. Serologies will be ordered. Coags will be checked. Platelets appear to be adequate as of most recent CBC. No current uremic symptoms. Hence, no role for dialysis just yet. 5. Edema. Low dose Lasix will be started for the time being. 6. Hypertension, appropriately being treated with amlodipine for now and p.r.n. hydralazine. 7. Hyperkalemia. Kayexalate was given and it is better now. May need kidney biopsy in the near future. JORDY URIOSTEGUI MD DR: TOBI/leanna JOB#: [id number] / [id number]
[2016-11-01 05:18] LABS: ALBUMIN/GLOBULIN RATIO 0.6 (1.0-1.7); CREATININE 6.3 mg/dL (0.7-1.3); GFR 10.9; POTASSIUM 4.6 mmol/L (3.5-5.1); TOTAL BILIRUBIN 0.3 mg/dL (0.2-1.0); TOTAL PROTEIN 5.2 g/dL (6.4-8.2)
[2016-11-01] MEDS: HEPARIN PF for SUB-Q USE 5,000 UNIT/0.5 ML VIAL. SQ SCH ×3 (06:00→20:41)
[2016-11-01] MEDS: FUROSEMIDE 40 MG TABLET. PO SCH ×2 (09:34→20:37)
[2016-11-01] MEDS: amLODIPine BESYLATE 10 MG TABLET PO SCH (09:35)
[2016-11-01] MEDS: SODIUM BICARBONATE 650 MG TABLET. PO SCH ×3 (09:35→20:37)
[2016-11-01 11:24] LABS: PTH INTACT 106 pg/mL (15-65)
--- NOTE | 2016-11-01 11:59 | PDOC ---
SUBJECTIVE ROS TITUS pt feels OK overall CVS: no Orthopnea, no CP RESP: no SOB, no GARY GI: no Nausea, no Vomiting : no Dysuria, no Urgency OBJECTIVE Vital Signs Vital Signs Date Time Temp Pulse Resp B/P Pulse Ox O2 Delivery O2 Flow Rate FiO2 11/01/16 11:41 98.7 90 18 129/82 100 Room Air 98.7 I & 0 Intake and Output 11/01/16 07:00 Intake Total 240 ml Output Total 2150 ml Balance -1910 ml Intake Oral 240 ml Output Urine Total 2150 ml PHYSICAL EXAM Physical Exam GENERAL: Awake, alert, oriented, in no apparent distress. HEAD: NC/AT. LUNGS: Clear to auscultation. CARDIOVASCULAR: Heart sounds, S1, S2. ABDOMEN: Soft. EXTREMITIES: Lower extremities have +1 edema. EXTERNAL GENITALIA: Deferred. IMPRESSION, ASSESSMENT AND PLAN: 1. Acute renal failure, baseline creatinine not known. Suspect acute. Temp HD Cath placement glomerulonephritis, cannot rule out nephrotic syndrome. Kidney Bx today 2. Proteinuria. We will quantitate with 24-hour urine. 3. Metabolic acidosis. better with Oral bicarb as started. 4. Nephritic appearing urine. Suspect glomerulonephritis. No current uremic symptoms. Hence, no role for dialysis just yet. 5. Edema. Low dose Lasix will be started for the time being. 6. Hypertension, appropriately being treated with amlodipine for now and p.r.n. hydralazine. 7. Hyperkalemia. resolved Extensive discussion with Pt via manager legal phone re Bx and HD Cath - he agrees to proceed COMMENT/RELEVANT DATA Meds Current Medications Medications (Trade) Dose Ordered Sig/Alexander Start Time Stop Time Status Last Admin Dose Admin Acetaminophen (Tylenol) 650 mg PRN Q6HRS PRN 10/30/16 17:30 10/31/16 09:15 650 MG Amlodipine Besylate (Norvasc) 10 mg DAILY 10/31/16 09:00 11/01/16 09:35 10 MG Furosemide (Lasix) 40 mg BID 10/31/16 11:00 11/01/16 09:34 40 MG Heparin Sodium (Porcine) 5,000 unit Q8HRS 10/30/16 22:00 10/31/16 21:04 5,000 UNIT Hydralazine HCl (Apresoline) 10 mg PRN Q4HRS PRN 10/30/16 17:30 10/31/16 03:18 10 MG Labetalol HCl (Normodyne) 20 mg 1X ONCE 10/30/16 16:15 10/30/16 16:16 DC 10/30/16 16:21 20 MG Ondansetron HCl (Zofran) 4 mg PRN Q6HRS PRN 10/30/16 17:30 Sodium Polystyrene Sulfonate (Kayexalate) 15 gm 1X ONCE 10/30/16 17:30 10/30/16 17:31 DC 10/30/16 17:34 15 GM Sodium Bicarbonate (Sodium Bicarbonate) 1,300 mg TID 10/31/16 11:00 11/01/16 09:35 1,300 MG Lab Laboratory Tests Test 10/31/16 15:38 11/01/16 03:35 Urine Collection Type Unknown Urine Color Yellow Urine Clarity Clear Urine pH 5.5 Urine Specific [place] <=1.005 Urine Protein >=300mg/dL (NEG-TRACE) Urine Glucose (UA) Negativemg/dL (NEG) Urine Ketones (Stick) Negativemg/dL (NEG) Urine Blood Moderate (NEG) Urine Nitrite Negative (NEG) Urine Bilirubin Negative (NEG) Urine Urobilinogen Dipstick 0.2mg/dL (0.2 mg/dL) Urine Leukocyte Esterase Negative (NEG) Urine RBC 20-40/HPF (0-2) Urine WBC 1-4/HPF (0-4) Urine Bacteria 0/HPF (0-FEW) Urine Hyaline Casts Few/HPF Urine Granular Casts Occasional/HPF Urine Waxy Casts Few/HPF Urine Mucus Slight/LPF White Blood Count 9.2x10^3/uL (4.0-11.0) Red Blood Count 3.82x10^6/uL (4.30-5.70) Hemoglobin 11.6g/dL (13.0-17.5) Hematocrit 34.4% (39.0-53.0) Mean Corpuscular Volume 90fL (79-100) Mean Corpuscular Hemoglobin 31pg (25-35) Mean Corpuscular Hemoglobin Concent 34g/dL (31-37) Red Cell Distribution Width 12.8% (11.5-14.5) Platelet Count 242x10^3/uL (140-400) Neutrophils (%) (Auto) 77% (31-73) Lymphocytes (%) (Auto) 14% (24-48) Monocytes (%) (Auto) 6% (0-9) Eosinophils (%) (Auto) 3% (0-3) Basophils (%) (Auto) 0% (0-3) Neutrophils # (Auto) 7.1x10^3uL (1.8-7.7) Lymphocytes # (Auto) 1.3x10^3/uL (1.0-4.8) Monocytes # (Auto) 0.6x10^3/uL (0.0-1.1) Eosinophils # (Auto) 0.3x10^3/uL (0.0-0.7) Basophils # (Auto) 0.0x10^3/uL (0.0-0.2) Sodium Level 142mmol/L (136-145) Potassium Level 4.6mmol/L (3.5-5.1) Chloride Level 110mmol/L (98-107) Carbon Dioxide Level 21mmol/L (21-32) Anion Gap 11 (6-14) Blood Urea Nitrogen 49mg/dL (8-26) Creatinine 6.3mg/dL (0.7-1.3) Estimated GFR (Cockcroft-Gault) 10.9 BUN/Creatinine Ratio 8 (6-20) Glucose Level 98mg/dL (70-99) Calcium Level 8.0mg/dL (8.5-10.1) Total Bilirubin 0.3mg/dL (0.2-1.0) Aspartate Amino Transf (AST/SGOT) 11U/L (15-37) Alanine Aminotransferase (ALT/SGPT) 15U/L (16-63) Alkaline Phosphatase 75U/L (46-116) Total Protein 5.2g/dL (6.4-8.2) Albumin 2.0g/dL (3.4-5.0) Albumin/Globulin Ratio 0.6 (1.0-1.7) JORDY URIOSTEGUI MD Nov 01, 2016 11:59
[2016-11-01] MEDS ORDERED: HEPARIN for IV BOLUS 10,000 UNIT/10 ML VIAL. ONE (13:02)
[2016-11-01] MEDS ORDERED: LIDOCAINE 1% / SOD BICARB 8.4% 20 ML VIAL. IJ ONE ×2 (13:02→13:45)
--- NOTE | 2016-11-01 13:06 | PDOC ---
PROGRESS NOTES Chief Complaint Chief Complaint 1. TITUS, 2/2 acute nephritis likely 2. bl leg edema 3. accelerated HTN 4. proteinuria 5. hyperkalemia 6. mild malnutrition no CHF History of Present Illness History of Present Illness renal consult following, w/u stevan catalan today on amlodipine planning HD, Vitals Vitals Vital Signs Date Time Temp Pulse Resp B/P Pulse Ox O2 Delivery O2 Flow Rate FiO2 11/01/16 11:41 98.7 90 18 129/82 100 Room Air 98.7 Physical Exam General: Alert, Oriented X3, Cooperative, No acute distress Heart: Regular rate, No murmurs Abdomen: Normal bowel sounds, Soft Extremities: No clubbing Skin: No rashes Labs LABS Laboratory Tests Test 10/31/16 15:38 11/01/16 03:35 Urine Collection Type Unknown Urine Color Yellow Urine Clarity Clear Urine pH 5.5 Urine Specific [place] <=1.005 Urine Protein >=300mg/dL (NEG-TRACE) Urine Glucose (UA) Negativemg/dL (NEG) Urine Ketones (Stick) Negativemg/dL (NEG) Urine Blood Moderate (NEG) Urine Nitrite Negative (NEG) Urine Bilirubin Negative (NEG) Urine Urobilinogen Dipstick 0.2mg/dL (0.2 mg/dL) Urine Leukocyte Esterase Negative (NEG) Urine RBC 20-40/HPF (0-2) Urine WBC 1-4/HPF (0-4) Urine Bacteria 0/HPF (0-FEW) Urine Hyaline Casts Few/HPF Urine Granular Casts Occasional/HPF Urine Waxy Casts Few/HPF Urine Mucus Slight/LPF White Blood Count 9.2x10^3/uL (4.0-11.0) Red Blood Count 3.82x10^6/uL (4.30-5.70) Hemoglobin 11.6g/dL (13.0-17.5) Hematocrit 34.4% (39.0-53.0) Mean Corpuscular Volume 90fL (79-100) Mean Corpuscular Hemoglobin 31pg (25-35) Mean Corpuscular Hemoglobin Concent 34g/dL (31-37) Red Cell Distribution Width 12.8% (11.5-14.5) Platelet Count 242x10^3/uL (140-400) Neutrophils (%) (Auto) 77% (31-73) Lymphocytes (%) (Auto) 14% (24-48) Monocytes (%) (Auto) 6% (0-9) Eosinophils (%) (Auto) 3% (0-3) Basophils (%) (Auto) 0% (0-3) Neutrophils # (Auto) 7.1x10^3uL (1.8-7.7) Lymphocytes # (Auto) 1.3x10^3/uL (1.0-4.8) Monocytes # (Auto) 0.6x10^3/uL (0.0-1.1) Eosinophils # (Auto) 0.3x10^3/uL (0.0-0.7) Basophils # (Auto) 0.0x10^3/uL (0.0-0.2) Sodium Level 142mmol/L (136-145) Potassium Level 4.6mmol/L (3.5-5.1) Chloride Level 110mmol/L (98-107) Carbon Dioxide Level 21mmol/L (21-32) Anion Gap 11 (6-14) Blood Urea Nitrogen 49mg/dL (8-26) Creatinine 6.3mg/dL (0.7-1.3) Estimated GFR (Cockcroft-Gault) 10.9 BUN/Creatinine Ratio 8 (6-20) Glucose Level 98mg/dL (70-99) Calcium Level 8.0mg/dL (8.5-10.1) Total Bilirubin 0.3mg/dL (0.2-1.0) Aspartate Amino Transf (AST/SGOT) 11U/L (15-37) Alanine Aminotransferase (ALT/SGPT) 15U/L (16-63) Alkaline Phosphatase 75U/L (46-116) Total Protein 5.2g/dL (6.4-8.2) Albumin 2.0g/dL (3.4-5.0) Albumin/Globulin Ratio 0.6 (1.0-1.7) Assessment and Plan Assessmemt and Plan Problems Medical Problems: (1) Accelerated hypertension Status: Acute (2) Acute renal failure (ARF) Status: Acute (3) Peripheral edema Status: Acute (4) Proteinuria Status: Acute Problems: Comment Review of Relevant I have reviewed the following items javier (where applicable) has been applied. Labs Laboratory Tests Test 10/30/16 16:09 10/30/16 16:18 10/30/16 16:20 10/31/16 05:30 White Blood Count 7.8x10^3/uL (4.0-11.0) 8.9x10^3/uL (4.0-11.0) Red Blood Count 4.16x10^6/uL (4.30-5.70) 3.83x10^6/uL (4.30-5.70) Hemoglobin 12.7g/dL (13.0-17.5) 11.7g/dL (13.0-17.5) Hematocrit 37.7% (39.0-53.0) 34.6% (39.0-53.0) Mean Corpuscular Volume 91fL (79-100) 90fL (79-100) Mean Corpuscular Hemoglobin 30pg (25-35) 31pg (25-35) Mean Corpuscular Hemoglobin Concent 34g/dL (31-37) 34g/dL (31-37) Red Cell Distribution Width 12.5% (11.5-14.5) 12.5% (11.5-14.5) Platelet Count 247x10^3/uL (140-400) 217x10^3/uL (140-400) Neutrophils (%) (Auto) 77% (31-73) 77% (31-73) Lymphocytes (%) (Auto) 14% (24-48) 13% (24-48) Monocytes (%) (Auto) 7% (0-9) 8% (0-9) Eosinophils (%) (Auto) 2% (0-3) 2% (0-3) Basophils (%) (Auto) 0% (0-3) 1% (0-3) Neutrophils # (Auto) 6.0x10^3uL (1.8-7.7) 6.8x10^3uL (1.8-7.7) Lymphocytes # (Auto) 1.1x10^3/uL (1.0-4.8) 1.1x10^3/uL (1.0-4.8) Monocytes # (Auto) 0.6x10^3/uL (0.0-1.1) 0.7x10^3/uL (0.0-1.1) Eosinophils # (Auto) 0.1x10^3/uL (0.0-0.7) 0.2x10^3/uL (0.0-0.7) Basophils # (Auto) 0.0x10^3/uL (0.0-0.2) 0.1x10^3/uL (0.0-0.2) Urine Collection Type Unknown Urine Color Yellow Urine Clarity Clear Urine pH 5.5 Urine Specific [place] 1.015 Urine Protein >=300mg/dL (NEG-TRACE) Urine Glucose (UA) Negativemg/dL (NEG) Urine Ketones (Stick) Negativemg/dL (NEG) Urine Blood Large (NEG) Urine Nitrite Negative (NEG) Urine Bilirubin Negative (NEG) Urine Urobilinogen Dipstick 0.2mg/dL (0.2 mg/dL) Urine Leukocyte Esterase Negative (NEG) Urine RBC >40/HPF (0-2) Urine WBC 1-4/HPF (0-4) Urine Bacteria 0/HPF (0-FEW) Urine Hyaline Casts Moderate/HPF Urine Granular Casts Few/HPF Urine Waxy Casts Few/HPF Sodium Level 144mmol/L (136-145) 141mmol/L (136-145) Potassium Level 5.3mmol/L (3.5-5.1) 4.8mmol/L (3.5-5.1) Chloride Level 112mmol/L (98-107) 111mmol/L (98-107) Carbon Dioxide Level 22mmol/L (21-32) 19mmol/L (21-32) Anion Gap 10 (6-14) 17mmol/L (6-14) 11 (6-14) Blood Urea Nitrogen 51mg/dL (8-26) 52mg/dL (8-26) Creatinine 5.8mg/dL (0.7-1.3) 5.9mg/dL (0.7-1.3) Estimated GFR (Cockcroft-Gault) 12.0 11.7 BUN/Creatinine Ratio 9 (6-20) Glucose Level 106mg/dL (70-99) 95mg/dL (70-99) 101mg/dL (70-99) Calcium Level 8.3mg/dL (8.5-10.1) 7.9mg/dL (8.5-10.1) Total Bilirubin 0.3mg/dL (0.2-1.0) Aspartate Amino Transf (AST/SGOT) 12U/L (15-37) Alanine Aminotransferase (ALT/SGPT) 14U/L (16-63) Alkaline Phosphatase 89U/L (46-116) Creatine Kinase 118U/L (39-308) Creatine Kinase MB (Mass) 1.0ng/mL (0.0-3.6) Creatine Kinase MB Relative Index 0.8% (0-4) Troponin I Quantitative < 0.017ng/mL (0.000-0.055) SA-Wqy-Q-Type Natriuretic Peptide 777pg/mL (0-124) Total Protein 5.8g/dL (6.4-8.2) Albumin 2.4g/dL (3.4-5.0) Albumin/Globulin Ratio 0.7 (1.0-1.7) Bedside Troponin I 0.01ng/ml (<0.08) Bedside Hemoglobin 11.2g/dL (14-18) Bedside Hematocrit 33% (37-52) Bedside Sodium 142mmol/L (135-145) Bedside Potassium 5.2mmol/L (3.5-5.0) Bedside Chloride 111mmol/L (98-110) Bedside Total CO2 19mmol/L (23-32) Bedside Blood Urea Nitrogen 44mg/dL (8-26) Bedside Creatinine 5.9mg/dL (0.5-1.4) Bedside Ionized Calcium (Mahad) 1.21mmol/L (1.13-1.32) Test 10/31/16 10:30 10/31/16 15:38 11/01/16 03:35 Erythrocyte Sedimentation Rate 29 (0-15) Prothrombin Time 13.3SEC (11.7-14.0) Prothromb Time International Ratio 1.1 (0.8-1.1) Activated Partial Thromboplast Time 32SEC (24-38) Estimated GFR (Non- 13 (>59) Creatine Kinase 91U/L (39-308) EGFR 15 (>59) PTH (Intact) Specimen Description Comment (.) Parathyroid Hormone (Intact) 106pg/mL (15-65) Calcium (PTH Intact) 8.2mg/dL (8.7-10.2) Creatinine (PTH Intact) 5.69mg/dL (0.76-1.27) Phosphorus (PTH Intact) 4.5mg/dL (2.5-4.5) Complement C3 102mg/dL (82-167) Complement C4 39mg/dL (14-44) Hepatitis A IgM Antibody Negative (Negative) Hepatitis B Surface Antigen Negative (Negative) Hepatitis B Surface Antibody Reactive (.) Hepatitis B Core Total Antibody Negative (Negative) Hepatitis B Core IgM Antibody Negative (Negative) Hepatitis C Antibody <0.1s/co ratio (0.0-0.9) Urine Collection Type Unknown Urine Color Yellow Urine Clarity Clear Urine pH 5.5 Urine Specific [place] <=1.005 Urine Protein >=300mg/dL (NEG-TRACE) Urine Glucose (UA) Negativemg/dL (NEG) Urine Ketones (Stick) Negativemg/dL (NEG) Urine Blood Moderate (NEG) Urine Nitrite Negative (NEG) Urine Bilirubin Negative (NEG) Urine Urobilinogen Dipstick 0.2mg/dL (0.2 mg/dL) Urine Leukocyte Esterase Negative (NEG) Urine RBC 20-40/HPF (0-2) Urine WBC 1-4/HPF (0-4) Urine Bacteria 0/HPF (0-FEW) Urine Hyaline Casts Few/HPF Urine Granular Casts Occasional/HPF Urine Waxy Casts Few/HPF Urine Mucus Slight/LPF White Blood Count 9.2x10^3/uL (4.0-11.0) Red Blood Count 3.82x10^6/uL (4.30-5.70) Hemoglobin 11.6g/dL (13.0-17.5) Hematocrit 34.4% (39.0-53.0) Mean Corpuscular Volume 90fL (79-100) Mean Corpuscular Hemoglobin 31pg (25-35) Mean Corpuscular Hemoglobin Concent 34g/dL (31-37) Red Cell Distribution Width 12.8% (11.5-14.5) Platelet Count 242x10^3/uL (140-400) Neutrophils (%) (Auto) 77% (31-73) Lymphocytes (%) (Auto) 14% (24-48) Monocytes (%) (Auto) 6% (0-9) Eosinophils (%) (Auto) 3% (0-3) Basophils (%) (Auto) 0% (0-3) Neutrophils # (Auto) 7.1x10^3uL (1.8-7.7) Lymphocytes # (Auto) 1.3x10^3/uL (1.0-4.8) Monocytes # (Auto) 0.6x10^3/uL (0.0-1.1) Eosinophils # (Auto) 0.3x10^3/uL (0.0-0.7) Basophils # (Auto) 0.0x10^3/uL (0.0-0.2) Sodium Level 142mmol/L (136-145) Potassium Level 4.6mmol/L (3.5-5.1) Chloride Level 110mmol/L (98-107) Carbon Dioxide Level 21mmol/L (21-32) Anion Gap 11 (6-14) Blood Urea Nitrogen 49mg/dL (8-26) Creatinine 6.3mg/dL (0.7-1.3) Estimated GFR (Cockcroft-Gault) 10.9 BUN/Creatinine Ratio 8 (6-20) Glucose Level 98mg/dL (70-99) Calcium Level 8.0mg/dL (8.5-10.1) Total Bilirubin 0.3mg/dL (0.2-1.0) Aspartate Amino Transf (AST/SGOT) 11U/L (15-37) Alanine Aminotransferase (ALT/SGPT) 15U/L (16-63) Alkaline Phosphatase 75U/L (46-116) Total Protein 5.2g/dL (6.4-8.2) Albumin 2.0g/dL (3.4-5.0) Albumin/Globulin Ratio 0.6 (1.0-1.7) Laboratory Tests Test 10/31/16 15:38 11/01/16 03:35 Urine Collection Type Unknown Urine Color Yellow Urine Clarity Clear Urine pH 5.5 Urine Specific [place] <=1.005 Urine Protein >=300mg/dL (NEG-TRACE) Urine Glucose (UA) Negativemg/dL (NEG) Urine Ketones (Stick) Negativemg/dL (NEG) Urine Blood Moderate (NEG) Urine Nitrite Negative (NEG) Urine Bilirubin Negative (NEG) Urine Urobilinogen Dipstick 0.2mg/dL (0.2 mg/dL) Urine Leukocyte Esterase Negative (NEG) Urine RBC 20-40/HPF (0-2) Urine WBC 1-4/HPF (0-4) Urine Bacteria 0/HPF (0-FEW) Urine Hyaline Casts Few/HPF Urine Granular Casts Occasional/HPF Urine Waxy Casts Few/HPF Urine Mucus Slight/LPF White Blood Count 9.2x10^3/uL (4.0-11.0) Red Blood Count 3.82x10^6/uL (4.30-5.70) Hemoglobin 11.6g/dL (13.0-17.5) Hematocrit 34.4% (39.0-53.0) Mean Corpuscular Volume 90fL (79-100) Mean Corpuscular Hemoglobin 31pg (25-35) Mean Corpuscular Hemoglobin Concent 34g/dL (31-37) Red Cell Distribution Width 12.8% (11.5-14.5) Platelet Count 242x10^3/uL (140-400) Neutrophils (%) (Auto) 77% (31-73) Lymphocytes (%) (Auto) 14% (24-48) Monocytes (%) (Auto) 6% (0-9) Eosinophils (%) (Auto) 3% (0-3) Basophils (%) (Auto) 0% (0-3) Neutrophils # (Auto) 7.1x10^3uL (1.8-7.7) Lymphocytes # (Auto) 1.3x10^3/uL (1.0-4.8) Monocytes # (Auto) 0.6x10^3/uL (0.0-1.1) Eosinophils # (Auto) 0.3x10^3/uL (0.0-0.7) Basophils # (Auto) 0.0x10^3/uL (0.0-0.2) Sodium Level 142mmol/L (136-145) Potassium Level 4.6mmol/L (3.5-5.1) Chloride Level 110mmol/L (98-107) Carbon Dioxide Level 21mmol/L (21-32) Anion Gap 11 (6-14) Blood Urea Nitrogen 49mg/dL (8-26) Creatinine 6.3mg/dL (0.7-1.3) Estimated GFR (Cockcroft-Gault) 10.9 BUN/Creatinine Ratio 8 (6-20) Glucose Level 98mg/dL (70-99) Calcium Level 8.0mg/dL (8.5-10.1) Total Bilirubin 0.3mg/dL (0.2-1.0) Aspartate Amino Transf (AST/SGOT) 11U/L (15-37) Alanine Aminotransferase (ALT/SGPT) 15U/L (16-63) Alkaline Phosphatase 75U/L (46-116) Total Protein 5.2g/dL (6.4-8.2) Albumin 2.0g/dL (3.4-5.0) Albumin/Globulin Ratio 0.6 (1.0-1.7) Medications Current Medications Labetalol HCl (Normodyne) 20 mg 1X ONCE IVP Last administered on 10/30/16 16: 21; Start 10/30/16 at 16:15; Stop 10/30/16 at 16:16; Status DC Ondansetron HCl (Zofran) 4 mg PRN Q8HRS PRN IV NAUSEA/VOMITING; Start 10/30/16 at 17:30; Stop 10/31/16 at 17:29; Status DC Acetaminophen (Tylenol) 650 mg PRN Q6HRS PRN PO FEVER Last administered on 10/31 09:15; Start 10/30/16 at 17:30 Ondansetron HCl (Zofran) 4 mg PRN Q6HRS PRN IV NAUSEA/VOMITING; Start 10/30/16 at 17:30 Hydralazine HCl (Apresoline) 10 mg PRN Q4HRS PRN IVP ELEVATED BP, SEE COMMENTS Last administered on 10/31/16 03:18; Start 10/30/16 at 17:30 Amlodipine Besylate (Norvasc) 10 mg DAILY PO Last administered on 10/30/16 18: 29; Start 10/30/16 at 18:00; Stop 10/30/16 at 23:59; Status DC Sodium Polystyrene Sulfonate (Kayexalate) 15 gm 1X ONCE PO Last administered on 10/30/16 17:34; Start 10/30/16 at 17:30; Stop 10/30/16 at 17:31; Status DC Amlodipine Besylate (Norvasc) 10 mg DAILY PO Last administered on 11/01/16 09: 35; Start 10/31/16 at 09:00 Heparin Sodium (Porcine) 5,000 unit Q8HRS SQ Last administered on 10/31/16 21: 04; Start 10/30/16 at 22:00 Sodium Bicarbonate (Sodium Bicarbonate) 1,300 mg TID PO Last administered on 09:35; Start 10/31/16 at 11:00 Furosemide (Lasix) 40 mg BID PO Last administered on 11/01/16 09:34; Start at 11:00 Heparin Sodium (Porcine) (Heparin Sodium) 10,000 unit STK-MED ONCE .ROUTE ; Start 11/01/16 at 13:02; Stop 11/01/16 at 13:03; Status DC Lidocaine/Sodium Bicarbonate 20 ml 20 ml STK-MED ONCE IJ ; Start 11/01/16 at 13: 02; Stop 11/01/16 at 13:03; Status DC Heparin Sodium/ Sodium Chloride 500 ml @ As Directed STK-MED ONCE .ROUTE ; Start 11/01/16 at 13:02; Stop 11/01/16 at 13:03; Status DC Vitals/I & O Vital Sign - Last 24 Hours 10/31/16 10/31/16 10/31/16 11/01/16 15:05 19:00 23:00 03:00 Temp 97.0 98.2 98.2 98.1 97.0 98.2 98.2 98.1 Pulse 98 86 95 88 Resp 18 16 18 16 B/P 159/96 135/88 155/109 129/85 Pulse Ox 100 98 100 96 O2 Delivery Room Air 11/01/16 11/01/16 11/01/16 11/01/16 07:00 08:10 08:26 09:35 Temp 97.0 97.9 97.0 97.9 Pulse 98 84 84 Resp 18 18 B/P 159/96 131/82 131/82 Pulse Ox 100 100 O2 Delivery Room Air Room Air Room Air 11/01/16 11:41 Temp 98.7 98.7 Pulse 90 Resp 18 B/P 129/82 Pulse Ox 100 O2 Delivery Room Air Intake and Output 10/31/16 10/31/16 11/01/16 15:00 23:00 07:00 Intake Total 120 ml 120 ml Output Total 550 ml 1600 ml Balance -430 ml -1480 ml GEO FLORES MD Nov 01, 2016 13:06
--- NOTE | 2016-11-01 13:52 | PDOC ---
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 Post-Procedure Diagnosis Post-Procedure Diagnosis Same Procedure Performed Procedure Performed Sono/fluoro guided temp HDC insertion Type of Anesthesia Type of Anesthesia Local Estimated Blood Loss EBL: Minimal Drain/Tubes Drains/Tubes Rt IJ 14F 15cm Schon temp HDC Condition of Patient Condition of Patient Stable. No apparent complication. Disposition Disposition From IR return to 56. F/u with HIMS and renal. OK to use temp HDC. Full report to follow. CT guided renal bx planned for Friday. GRETA DALLAS MD Nov 01, 2016 13:52
[2016-11-01] MEDS: ACETAMINOPHEN 325 MG TABLET. PO PRN (20:37)
[2016-11-02] MEDS: HEPARIN PF for SUB-Q USE 5,000 UNIT/0.5 ML VIAL. SQ SCH ×3 (05:45→22:10)
[2016-11-02 07:00] VITALS: BP 129/91
[2016-11-02 08:22] LABS: MYELOPEROXIDASE ABY <9.0 U/mL (0.0-9.0); PROTEINASE 3 ANTIBODY <3.5 U/mL (0.0-3.5)
--- NOTE | 2016-11-02 08:40 | PDOC ---
PROGRESS NOTES Chief Complaint Chief Complaint 1. ESRD new HD sec to nephritis 2. bl leg edema , better 3. accelerated HTN, resolved 4. proteinuria 5. hyperkalemia, addressed 6. mild malnutrition no CHF History of Present Illness History of Present Illness NO SOA, cp etc NO active issues relayed to me Planned for OP Set up HD - new- sw on case LAbs: crea 6.3, K ok, ESR moderately high PLan: HD per renal Will be here thru weekend for SW outpt HD set up CPM Renal panel daily Vitals Vitals Vital Signs Date Time Temp Pulse Resp B/P Pulse Ox O2 Delivery O2 Flow Rate FiO2 11/02/16 07:00 98.3 86 16 129/91 98 Room Air 98.3 Physical Exam General: Alert, Oriented X3, Cooperative, No acute distress Heart: Regular rate, No murmurs Abdomen: Normal bowel sounds, Soft Extremities: No clubbing Skin: No rashes Labs LABS Laboratory Tests Test 11/01/16 20:43 Glucose (Fingerstick) 151mg/dL (70-99) Review of Systems Review of Systems exerciser horse cp, soa, n.v.d Assessment and Plan Assessmemt and Plan Problems Medical Problems: (1) Accelerated hypertension Status: Acute (2) Acute renal failure (ARF) Status: Acute (3) Peripheral edema Status: Acute (4) Proteinuria Status: Acute Problems: Comment Review of Relevant I have reviewed the following items javier (where applicable) has been applied. Labs Laboratory Tests Test 10/31/16 10:30 10/31/16 15:38 11/01/16 03:35 11/01/16 20:43 Erythrocyte Sedimentation Rate 29 (0-15) Prothrombin Time 13.3SEC (11.7-14.0) Prothromb Time International Ratio 1.1 (0.8-1.1) Activated Partial Thromboplast Time 32SEC (24-38) Estimated GFR (Non- 13 (>59) Creatine Kinase 91U/L (39-308) EGFR 15 (>59) PTH (Intact) Specimen Description Comment (.) Parathyroid Hormone (Intact) 106pg/mL (15-65) Calcium (PTH Intact) 8.2mg/dL (8.7-10.2) Creatinine (PTH Intact) 5.69mg/dL (0.76-1.27) Phosphorus (PTH Intact) 4.5mg/dL (2.5-4.5) Proteinase 3 (PR3) Antibodies <3.5U/mL (0.0-3.5) Myeloperoxidase Antibody <9.0U/mL (0.0-9.0) Complement C3 102mg/dL (82-167) Complement C4 39mg/dL (14-44) Hepatitis A IgM Antibody Negative (Negative) Hepatitis B Surface Antigen Negative (Negative) Hepatitis B Surface Antibody Reactive (.) Hepatitis B Core Total Antibody Negative (Negative) Hepatitis B Core IgM Antibody Negative (Negative) Hepatitis C Antibody <0.1s/co ratio (0.0-0.9) Urine Collection Type Unknown Urine Color Yellow Urine Clarity Clear Urine pH 5.5 Urine Specific [place] <=1.005 Urine Protein >=300mg/dL (NEG-TRACE) Urine Glucose (UA) Negativemg/dL (NEG) Urine Ketones (Stick) Negativemg/dL (NEG) Urine Blood Moderate (NEG) Urine Nitrite Negative (NEG) Urine Bilirubin Negative (NEG) Urine Urobilinogen Dipstick 0.2mg/dL (0.2 mg/dL) Urine Leukocyte Esterase Negative (NEG) Urine RBC 20-40/HPF (0-2) Urine WBC 1-4/HPF (0-4) Urine Bacteria 0/HPF (0-FEW) Urine Hyaline Casts Few/HPF Urine Granular Casts Occasional/HPF Urine Waxy Casts Few/HPF Urine Mucus Slight/LPF White Blood Count 9.2x10^3/uL (4.0-11.0) Red Blood Count 3.82x10^6/uL (4.30-5.70) Hemoglobin 11.6g/dL (13.0-17.5) Hematocrit 34.4% (39.0-53.0) Mean Corpuscular Volume 90fL (79-100) Mean Corpuscular Hemoglobin 31pg (25-35) Mean Corpuscular Hemoglobin Concent 34g/dL (31-37) Red Cell Distribution Width 12.8% (11.5-14.5) Platelet Count 242x10^3/uL (140-400) Neutrophils (%) (Auto) 77% (31-73) Lymphocytes (%) (Auto) 14% (24-48) Monocytes (%) (Auto) 6% (0-9) Eosinophils (%) (Auto) 3% (0-3) Basophils (%) (Auto) 0% (0-3) Neutrophils # (Auto) 7.1x10^3uL (1.8-7.7) Lymphocytes # (Auto) 1.3x10^3/uL (1.0-4.8) Monocytes # (Auto) 0.6x10^3/uL (0.0-1.1) Eosinophils # (Auto) 0.3x10^3/uL (0.0-0.7) Basophils # (Auto) 0.0x10^3/uL (0.0-0.2) Sodium Level 142mmol/L (136-145) Potassium Level 4.6mmol/L (3.5-5.1) Chloride Level 110mmol/L (98-107) Carbon Dioxide Level 21mmol/L (21-32) Anion Gap 11 (6-14) Blood Urea Nitrogen 49mg/dL (8-26) Creatinine 6.3mg/dL (0.7-1.3) Estimated GFR (Cockcroft-Gault) 10.9 BUN/Creatinine Ratio 8 (6-20) Glucose Level 98mg/dL (70-99) Calcium Level 8.0mg/dL (8.5-10.1) Total Bilirubin 0.3mg/dL (0.2-1.0) Aspartate Amino Transf (AST/SGOT) 11U/L (15-37) Alanine Aminotransferase (ALT/SGPT) 15U/L (16-63) Alkaline Phosphatase 75U/L (46-116) Total Protein 5.2g/dL (6.4-8.2) Albumin 2.0g/dL (3.4-5.0) Albumin/Globulin Ratio 0.6 (1.0-1.7) Glucose (Fingerstick) 151mg/dL (70-99) Laboratory Tests Test 11/01/16 20:43 Glucose (Fingerstick) 151mg/dL (70-99) Medications Current Medications Labetalol HCl (Normodyne) 20 mg 1X ONCE IVP Last administered on 10/30/16t 16: 21; Start 10/30/16 at 16:15; Stop 10/30/16 at 16:16; Status DC Ondansetron HCl (Zofran) 4 mg PRN Q8HRS PRN IV NAUSEA/VOMITING; Start 10/30/16 at 17:30; Stop 10/31/16 at 17:29; Status DC Acetaminophen (Tylenol) 650 mg PRN Q6HRS PRN PO FEVER Last administered on 11/01 20:37; Start 10/30/16 at 17:30 Ondansetron HCl (Zofran) 4 mg PRN Q6HRS PRN IV NAUSEA/VOMITING; Start 10/30/16 at 17:30 Hydralazine HCl (Apresoline) 10 mg PRN Q4HRS PRN IVP ELEVATED BP, SEE COMMENTS Last administered on 10/31/16 03:18; Start 10/30/16 at 17:30 Amlodipine Besylate (Norvasc) 10 mg DAILY PO Last administered on 10/30/16 18: 29; Start 10/30/16 at 18:00; Stop 10/30/16 at 23:59; Status DC Sodium Polystyrene Sulfonate (Kayexalate) 15 gm 1X ONCE PO Last administered on 10/30/16 17:34; Start 10/30/16 at 17:30; Stop 10/30/16 at 17:31; Status DC Amlodipine Besylate (Norvasc) 10 mg DAILY PO Last administered on 11/01/16 09: 35; Start 10/31/16 at 09:00 Heparin Sodium (Porcine) 5,000 unit Q8HRS SQ Last administered on 11/01/16 20: 41; Start 10/30/16 at 22:00 Sodium Bicarbonate (Sodium Bicarbonate) 1,300 mg TID PO Last administered on 20:37; Start 10/31/16 at 11:00 Furosemide (Lasix) 40 mg BID PO Last administered on 11/01/16 20:37; Start at 11:00 Heparin Sodium (Porcine) (Heparin Sodium) 10,000 unit STK-MED ONCE .ROUTE ; Start 11/01/16 at 13:02; Stop 11/01/16 at 13:03; Status DC Lidocaine/Sodium Bicarbonate 20 ml 20 ml STK-MED ONCE IJ ; Start 11/01/16 at 13: 02; Stop 11/01/16 at 13:03; Status DC Heparin Sodium/ Sodium Chloride 500 ml @ As Directed STK-MED ONCE .ROUTE ; Start 11/01/16 at 13:02; Stop 11/01/16 at 13:03; Status DC Heparin Sodium (Porcine) (Heparin Sodium) 2,500 unit 1X ONCE INT CAT Last administered on 11/01/16 13:57; Start 11/01/16 at 13:45; Stop 11/01/16 at 13:48 ; Status DC Heparin Sodium/ Sodium Chloride 60 unit 1X ONCE IV Last administered on 13:57; Start 11/01/16 at 13:45; Stop 11/01/16 at 13:48; Status DC Lidocaine/Sodium Bicarbonate (Buffered Lidocaine 1%) 3 ml 1X ONCE IJ Last administered on 11/01/16 13:47; Start 11/01/16 at 13:45; Stop 11/01/16 at 13:48 ; Status DC Vitals/I & O Vital Sign - Last 24 Hours 11/01/16 11/01/16 11/01/16 11/01/16 09:35 11:41 14:38 19:56 Temp 98.7 98.1 98.7 98.1 Pulse 84 90 88 Resp 18 20 B/P 131/82 129/82 148/99 Pulse Ox 100 100 O2 Delivery Room Air Room Air Room Air 11/01/16 11/01/16 11/02/16 19:59 23:59 07:00 Temp 98.6 97.6 98.3 98.6 97.6 98.3 Pulse 85 89 86 Resp 18 18 16 B/P 142/92 149/96 129/91 Pulse Ox 98 100 98 O2 Delivery Room Air Room Air Room Air Intake and Output 11/01/16 11/01/16 11/02/16 15:00 23:00 07:00 Intake Total 940 ml 240 ml Output Total 800 ml 325 ml Balance 940 ml -560 ml -325 ml DAR RODRIGUEZ MD Nov 02, 2016 08:40
[2016-11-02] MEDS: amLODIPine BESYLATE 10 MG TABLET PO SCH (09:32)
[2016-11-02] MEDS: FUROSEMIDE 40 MG TABLET. PO SCH ×2 (09:32→22:01)
[2016-11-02] MEDS: SODIUM BICARBONATE 650 MG TABLET. PO SCH ×3 (09:32→22:02)
[2016-11-02 11:00] VITALS: BP 128/90
--- NOTE | 2016-11-02 11:31 | RAD ---
Ultrasound and fluoro guided right IJ temporary hemodialysis catheter Indication: 25-year-old male with acute renal failure, hyperkalemia, edema, proteinuria, and hematuria. Temporary dialysis catheter insertion has been requested by renal. Fluoro time: 0.1 minutes Kerma-Area Product: 1 Gycm2 Anesthesia: Local only Sterility: All elements of maximal sterile barrier technique, including the use of a cap, mask, sterile gown, sterile gloves, large sterile sheet, appropriate hand hygiene, and 2% chlorhexidine for cutaneous antisepsis (or acceptable alternative antiseptic per current guidelines) were utilized. Procedure: Informed consent was obtained from the patient. He was placed supine on the angiography table. Preliminary ultrasound examination of right neck revealed patency of right internal jugular vein, which was documented with a single hard copy ultrasound image. Right neck was then prepped and draped in the usual sterile fashion, utilizing all elements of maximal sterile barrier technique, as described above. Using aseptic technique, local anesthesia, direct ultrasound guidance, and the micropuncture system, successful percutaneous entry was achieved into right internal jugular vein. The right IJ venostomy tract was then dilated and a 14 [place] 15 cm Schon temporary hemodialysis catheter was easily advanced centrally over an angiographic guidewire, and was positioned with its tip at the level of upper right atrium utilizing fluoroscopic guidance. This catheter was documented to flush and aspirate normally, was packed, and was secured at the right neck exit site utilizing suture and sterile dressing. Patient tolerated the procedure well without apparent complication. Satisfactory position of the dialysis catheter was confirmed with a single fluoroscopic spot image. Impression: Successful, uneventful ultrasound and fluoro guided placement of right IJ 14 [place]ian 15 cm Schon temporary hemodialysis catheter, as described.
--- NOTE | 2016-11-02 12:13 | PDOC ---
Renal-Progress Notes Subjective Notes Notes NO COMPLAINTS VOICED History of Present Illness Hx of present illness NO CHANGE Vitals Vitals Vital Signs Date Time Temp Pulse Resp B/P Pulse Ox O2 Delivery O2 Flow Rate FiO2 11/02/16 11:00 98.0 87 16 128/90 98 Room Air 98.0 Weight Weight [ ] I.O. Intake and Output Intake and Output 11/02/16 06:59 Intake Total 1180 ml Output Total 1125 ml Balance 55 ml Intake Oral 1180 ml Output Urine Total 1125 ml # Voids 4 Labs Labs Laboratory Tests Test 11/01/16 20:43 Glucose (Fingerstick) 151mg/dL (70-99) Review of Systems Constitutional: yes: no symptom reported Physical Exam Skin: warm Respiratory: bilateral CTA Heart: S1S2 Abdomen: soft Extremities: edema Neurology: alert, oriented Assessment Assessment IMP TITUS-SUGGESTIVE OF NEPHRITIS PROTEINURIA HEMATURIA EDEMA HTN-BETTER PLAN CONT WITH LASIX SEROLOGY PENDING RENAL BIOPSY ON FRIDAY LABS IN AM CYNDEE BURTON MD Nov 02, 2016 12:13
[2016-11-02 14:55] VITALS: BP 77/53
[2016-11-02 19:10] LABS: TOTAL SERUM CREATININE 6.15 mg/dL (0.76-1.27); TOTAL URINE CREATININE 42.1 mg/dL (Not Estab.)
[2016-11-02 19:59] VITALS: BP 133/87
[2016-11-02 23:49] VITALS: BP 162/103
[2016-11-03 03:00] VITALS: BP 139/92
[2016-11-03 04:38] LABS: CALCIUM 8.3 mg/dL (8.5-10.1); CREATININE 6.9 mg/dL (0.7-1.3); GFR 9.8; POTASSIUM 4.1 mmol/L (3.5-5.1)
[2016-11-03] MEDS: HEPARIN PF for SUB-Q USE 5,000 UNIT/0.5 ML VIAL. SQ SCH ×3 (06:41→21:01)
[2016-11-03 07:00] VITALS: BP 122/85
[2016-11-03] MEDS: amLODIPine BESYLATE 10 MG TABLET PO SCH (09:14)
[2016-11-03] MEDS: FUROSEMIDE 40 MG TABLET. PO SCH ×2 (09:14→20:56)
[2016-11-03] MEDS: SODIUM BICARBONATE 650 MG TABLET. PO SCH ×3 (09:14→20:56)
--- NOTE | 2016-11-03 10:35 | PDOC ---
Renal-Progress Notes Subjective Notes Notes NONE History of Present Illness Hx of present illness RENAL FXN CONTINUES TO DETERIORATE Vitals Vitals Vital Signs Date Time Temp Pulse Resp B/P Pulse Ox O2 Delivery O2 Flow Rate FiO2 11/03/16 09:14 91 122/85 11/03/16 08:00 Room Air 11/03/16 07:00 98.4 16 95 98.4 Weight Weight [ ] I.O. Intake and Output Intake and Output 11/03/16 07:00 Intake Total 700 ml Output Total 1650 ml Balance -950 ml Intake Oral 700 ml Output Urine Total 1650 ml # Voids 5 Labs Labs Laboratory Tests Test 11/03/16 03:40 Sodium Level 142mmol/L (136-145) Potassium Level 4.1mmol/L (3.5-5.1) Chloride Level 109mmol/L (98-107) Carbon Dioxide Level 24mmol/L (21-32) Anion Gap 9 (6-14) Blood Urea Nitrogen 52mg/dL (8-26) Creatinine 6.9mg/dL (0.7-1.3) Estimated GFR (Cockcroft-Gault) 9.8 Glucose Level 173mg/dL (70-99) Calcium Level 8.3mg/dL (8.5-10.1) Review of Systems Constitutional: yes: no symptom reported Physical Exam Skin: warm Respiratory: bilateral CTA Heart: S1S2 Abdomen: soft Extremities: edema Neurology: alert, oriented Assessment Assessment IMP TITUS-SUGGESTIVE OF NEPHRITIS PROTEINURIA HEMATURIA EDEMA HTN-BETTER PLAN CONT WITH LASIX SEROLOGY NEG SO FAR RENAL BIOPSY TOMORROW LABS IN AM CYNDEE BURTON MD Nov 03, 2016 10:35
[2016-11-03 11:00] VITALS: BP 120/74
--- NOTE | 2016-11-03 11:01 | PDOC ---
PROGRESS NOTES Chief Complaint Chief Complaint 1. ESRD new HD sec to nephritis 2. bl leg edema , better 3. accelerated HTN, resolved 4. proteinuria 5. hyperkalemia, addressed 6. mild malnutrition 7.Fever (11/02) no CHF History of Present Illness History of Present Illness Asleep Temp 100 last night, resolved on its own CXR clean UA no infection PLAn: Monitor temps Will order more if temp persists Kidney biopsy ramin NPO post MN Dw RN Vitals Vitals Vital Signs Date Time Temp Pulse Resp B/P Pulse Ox O2 Delivery O2 Flow Rate FiO2 11/03/16 09:14 91 122/85 11/03/16 08:00 Room Air 11/03/16 07:00 98.4 16 95 98.4 Physical Exam General: Alert, Oriented X3, Cooperative, No acute distress Heart: Regular rate, No murmurs Abdomen: Normal bowel sounds, Soft Extremities: No clubbing Skin: No rashes Labs LABS Laboratory Tests Test 11/03/16 03:40 Sodium Level 142mmol/L (136-145) Potassium Level 4.1mmol/L (3.5-5.1) Chloride Level 109mmol/L (98-107) Carbon Dioxide Level 24mmol/L (21-32) Anion Gap 9 (6-14) Blood Urea Nitrogen 52mg/dL (8-26) Creatinine 6.9mg/dL (0.7-1.3) Estimated GFR (Cockcroft-Gault) 9.8 Glucose Level 173mg/dL (70-99) Calcium Level 8.3mg/dL (8.5-10.1) Review of Systems Review of Systems fever, no cp, soa, cough, diarrhea Assessment and Plan Assessmemt and Plan Problems Medical Problems: (1) Accelerated hypertension Status: Acute (2) Acute renal failure (ARF) Status: Acute (3) Peripheral edema Status: Acute (4) Proteinuria Status: Acute Problems: Comment Review of Relevant I have reviewed the following items javier (where applicable) has been applied. Labs Laboratory Tests Test 11/01/16 15:30 11/01/16 20:43 11/03/16 03:40 Urine Creatinine 24 Hour 1179mg/24 hr (3818-4027) Creatinine Clearance 24 Hour 13mL/min (97-137) Creatinine 6.15mg/dL (0.76-1.27) 6.9mg/dL (0.7-1.3) Estimated GFR (Non- 12 (>59) EGFR 13 (>59) Glucose (Fingerstick) 151mg/dL (70-99) Sodium Level 142mmol/L (136-145) Potassium Level 4.1mmol/L (3.5-5.1) Chloride Level 109mmol/L (98-107) Carbon Dioxide Level 24mmol/L (21-32) Anion Gap 9 (6-14) Blood Urea Nitrogen 52mg/dL (8-26) Estimated GFR (Cockcroft-Gault) 9.8 Glucose Level 173mg/dL (70-99) Calcium Level 8.3mg/dL (8.5-10.1) Laboratory Tests Test 11/03/16 03:40 Sodium Level 142mmol/L (136-145) Potassium Level 4.1mmol/L (3.5-5.1) Chloride Level 109mmol/L (98-107) Carbon Dioxide Level 24mmol/L (21-32) Anion Gap 9 (6-14) Blood Urea Nitrogen 52mg/dL (8-26) Creatinine 6.9mg/dL (0.7-1.3) Estimated GFR (Cockcroft-Gault) 9.8 Glucose Level 173mg/dL (70-99) Calcium Level 8.3mg/dL (8.5-10.1) Medications Current Medications Labetalol HCl (Normodyne) 20 mg 1X ONCE IVP Last administered on 10/30/16 16: 21; Start 10/30/16 at 16:15; Stop 10/30/16 at 16:16; Status DC Ondansetron HCl (Zofran) 4 mg PRN Q8HRS PRN IV NAUSEA/VOMITING; Start 10/30/16 at 17:30; Stop 10/31/16 at 17:29; Status DC Acetaminophen (Tylenol) 650 mg PRN Q6HRS PRN PO FEVER Last administered on 11/01 20:37; Start 10/30/16 at 17:30 Ondansetron HCl (Zofran) 4 mg PRN Q6HRS PRN IV NAUSEA/VOMITING; Start 10/30/16 at 17:30 Hydralazine HCl (Apresoline) 10 mg PRN Q4HRS PRN IVP ELEVATED BP, SEE COMMENTS Last administered on 10/31/16 03:18; Start 10/30/16 at 17:30 Amlodipine Besylate (Norvasc) 10 mg DAILY PO Last administered on 10/30/16 18: 29; Start 10/30/16 at 18:00; Stop 10/30/16 at 23:59; Status DC Sodium Polystyrene Sulfonate (Kayexalate) 15 gm 1X ONCE PO Last administered on 10/30/16 17:34; Start 10/30/16 at 17:30; Stop 10/30/16 at 17:31; Status DC Amlodipine Besylate (Norvasc) 10 mg DAILY PO Last administered on 11/03/16 09: 14; Start 10/31/16 at 09:00 Heparin Sodium (Porcine) 5,000 unit Q8HRS SQ Last administered on 11/03/16 06: 41; Start 10/30/16 at 22:00 Sodium Bicarbonate (Sodium Bicarbonate) 1,300 mg TID PO Last administered on 09:14; Start 10/31/16 at 11:00 Furosemide (Lasix) 40 mg BID PO Last administered on 11/03/16 09:14; Start at 11:00 Heparin Sodium (Porcine) (Heparin Sodium) 10,000 unit STK-MED ONCE .ROUTE ; Start 11/01/16 at 13:02; Stop 11/01/16 at 13:03; Status DC Lidocaine/Sodium Bicarbonate 20 ml 20 ml STK-MED ONCE IJ ; Start 11/01/16 at 13: 02; Stop 11/01/16 at 13:03; Status DC Heparin Sodium/ Sodium Chloride 500 ml @ As Directed STK-MED ONCE .ROUTE ; Start 11/01/16 at 13:02; Stop 11/01/16 at 13:03; Status DC Heparin Sodium (Porcine) (Heparin Sodium) 2,500 unit 1X ONCE INT CAT Last administered on 11/01/16 13:57; Start 11/01/16 at 13:45; Stop 11/01/16 at 13:48 ; Status DC Heparin Sodium/ Sodium Chloride 60 unit 1X ONCE IV Last administered on 13:57; Start 11/01/16 at 13:45; Stop 11/01/16 at 13:48; Status DC Lidocaine/Sodium Bicarbonate (Buffered Lidocaine 1%) 3 ml 1X ONCE IJ Last administered on 11/01/16t 13:47; Start 11/01/16 at 13:45; Stop 11/01/16 at 13:48 ; Status DC Vitals/I & O Vital Sign - Last 24 Hours 11/02/16 11/02/16 11/02/16 11/02/16 14:55 19:59 20:00 23:49 Temp 98.1 98.1 100.8 98.1 98.1 100.8 Pulse 96 78 82 Resp 16 18 B/P 77/53 133/87 162/103 Pulse Ox 99 98 99 O2 Delivery Room Air Room Air Room Air Room Air 11/03/16 11/03/16 11/03/16 11/03/16 03:00 07:00 08:00 09:14 Temp 98.4 98.4 98.4 98.4 Pulse 88 91 91 Resp 16 B/P 139/92 122/85 122/85 Pulse Ox 98 95 O2 Delivery Room Air Room Air Room Air Intake and Output 11/02/16 11/02/16 11/03/16 15:00 23:00 07:00 Intake Total 700 ml Output Total 1000 ml 650 ml Balance -300 ml -650 ml DAR RODRIGUEZ MD Nov 03, 2016 11:01
[2016-11-03 14:10] LABS: PROTEIN 24 HR UR 5840.8 mg/24 hr (30.0-150.0)
[2016-11-03 15:00] VITALS: BP 132/76
[2016-11-03 19:00] VITALS: BP 136/93
[2016-11-03] MEDS: ACETAMINOPHEN 325 MG TABLET. PO PRN (20:56)
[2016-11-03 22:50] VITALS: BP 125/93
[2016-11-04] VITALS (20 sets, daily range): BP systolic 118–143; BP diastolic 61–90
[2016-11-04 05:34] LABS: CREATININE 7.3 mg/dL (0.7-1.3); GFR 9.2; POTASSIUM 4.4 mmol/L (3.5-5.1)
[2016-11-04] MEDS: HEPARIN PF for SUB-Q USE 5,000 UNIT/0.5 ML VIAL. SQ SCH ×3 (06:00→22:00)
[2016-11-04] MEDS: amLODIPine BESYLATE 10 MG TABLET PO SCH (08:44)
[2016-11-04] MEDS: FUROSEMIDE 40 MG TABLET. PO SCH ×2 (09:00→23:36)
[2016-11-04] MEDS: SODIUM BICARBONATE 650 MG TABLET. PO SCH ×3 (09:00→23:36)
[2016-11-04 11:21] LABS: GLOMERULAR BASEMENT ABDY 3 units (0-20)
--- NOTE | 2016-11-04 12:02 | PDOC ---
PROGRESS NOTES Chief Complaint Chief Complaint TITUS PROTEINURIA HEMATURIA EDEMA HTN-BETTER PLAN RENAL BIOPSY TODAY, D/W PT, RISKS BENEFITS EXPLAINED SEROLOGY NEGATIVE SO FAR APPRECIATE NEPHROLOGY RECOMMENDATIONS LASIX MONITOR INTAKE AND OUT PUT NOT READY FOR DC TODAY History of Present Illness History of Present Illness NO FEVER DOING BETTER NO CHEST PAIN Vitals Vitals Vital Signs Date Time Temp Pulse Resp B/P Pulse Ox O2 Delivery O2 Flow Rate FiO2 11/04/16 10:59 98.1 95 18 118/82 94 Room Air 98.1 Physical Exam General: Alert, Oriented X3, Cooperative, No acute distress Heart: Regular rate, Normal S1, Normal S2, No murmurs Abdomen: Normal bowel sounds, Soft Extremities: No clubbing Skin: No rashes Labs LABS Laboratory Tests Test 11/04/16 05:00 Sodium Level 142mmol/L (136-145) Potassium Level 4.4mmol/L (3.5-5.1) Chloride Level 108mmol/L (98-107) Carbon Dioxide Level 25mmol/L (21-32) Anion Gap 9 (6-14) Blood Urea Nitrogen 54mg/dL (8-26) Creatinine 7.3mg/dL (0.7-1.3) Estimated GFR (Cockcroft-Gault) 9.2 Glucose Level 84mg/dL (70-99) Calcium Level 8.0mg/dL (8.5-10.1) Assessment and Plan Assessmemt and Plan Problems Medical Problems: (1) Accelerated hypertension Status: Acute (2) Acute renal failure (ARF) Status: Acute (3) Peripheral edema Status: Acute (4) Proteinuria Status: Acute Problems: Comment Review of Relevant I have reviewed the following items javier (where applicable) has been applied. Labs Laboratory Tests Test 11/03/16 03:40 11/04/16 05:00 Sodium Level 142mmol/L (136-145) 142mmol/L (136-145) Potassium Level 4.1mmol/L (3.5-5.1) 4.4mmol/L (3.5-5.1) Chloride Level 109mmol/L (98-107) 108mmol/L (98-107) Carbon Dioxide Level 24mmol/L (21-32) 25mmol/L (21-32) Anion Gap 9 (6-14) 9 (6-14) Blood Urea Nitrogen 52mg/dL (8-26) 54mg/dL (8-26) Creatinine 6.9mg/dL (0.7-1.3) 7.3mg/dL (0.7-1.3) Estimated GFR (Cockcroft-Gault) 9.8 9.2 Glucose Level 173mg/dL (70-99) 84mg/dL (70-99) Calcium Level 8.3mg/dL (8.5-10.1) 8.0mg/dL (8.5-10.1) Laboratory Tests Test 11/04/16 05:00 Sodium Level 142mmol/L (136-145) Potassium Level 4.4mmol/L (3.5-5.1) Chloride Level 108mmol/L (98-107) Carbon Dioxide Level 25mmol/L (21-32) Anion Gap 9 (6-14) Blood Urea Nitrogen 54mg/dL (8-26) Creatinine 7.3mg/dL (0.7-1.3) Estimated GFR (Cockcroft-Gault) 9.2 Glucose Level 84mg/dL (70-99) Calcium Level 8.0mg/dL (8.5-10.1) Medications Current Medications Labetalol HCl (Normodyne) 20 mg 1X ONCE IVP Last administered on 10/30/16 16: 21; Start 10/30/16 at 16:15; Stop 10/30/16 at 16:16; Status DC Ondansetron HCl (Zofran) 4 mg PRN Q8HRS PRN IV NAUSEA/VOMITING; Start 10/30/16 at 17:30; Stop 10/31/16 at 17:29; Status DC Acetaminophen (Tylenol) 650 mg PRN Q6HRS PRN PO FEVER Last administered on 11/03 20:56; Start 10/30/16 at 17:30 Ondansetron HCl (Zofran) 4 mg PRN Q6HRS PRN IV NAUSEA/VOMITING; Start 10/30/16 at 17:30 Hydralazine HCl (Apresoline) 10 mg PRN Q4HRS PRN IVP ELEVATED BP, SEE COMMENTS Last administered on 10/31/16 03:18; Start 10/30/16 at 17:30 Amlodipine Besylate (Norvasc) 10 mg DAILY PO Last administered on 10/30/16 18: 29; Start 10/30/16 at 18:00; Stop 10/30/16 at 23:59; Status DC Sodium Polystyrene Sulfonate (Kayexalate) 15 gm 1X ONCE PO Last administered on 10/30/16 17:34; Start 10/30/16 at 17:30; Stop 10/30/16 at 17:31; Status DC Amlodipine Besylate (Norvasc) 10 mg DAILY PO Last administered on 11/04/16 08: 44; Start 10/31/16 at 09:00 Heparin Sodium (Porcine) 5,000 unit Q8HRS SQ Last administered on 11/03/16 21: 01; Start 10/30/16 at 22:00 Sodium Bicarbonate (Sodium Bicarbonate) 1,300 mg TID PO Last administered on 20:56; Start 10/31/16 at 11:00 Furosemide (Lasix) 40 mg BID PO Last administered on 11/03/16 20:56; Start at 11:00 Heparin Sodium (Porcine) (Heparin Sodium) 10,000 unit STK-MED ONCE .ROUTE ; Start 11/01/16 at 13:02; Stop 11/01/16 at 13:03; Status DC Lidocaine/Sodium Bicarbonate 20 ml 20 ml STK-MED ONCE IJ ; Start 11/01/16 at 13: 02; Stop 11/01/16 at 13:03; Status DC Heparin Sodium/ Sodium Chloride 500 ml @ As Directed STK-MED ONCE .ROUTE ; Start 11/01/16 at 13:02; Stop 11/01/16 at 13:03; Status DC Heparin Sodium (Porcine) (Heparin Sodium) 2,500 unit 1X ONCE INT CAT Last administered on 11/01/16 13:57; Start 11/01/16 at 13:45; Stop 11/01/16 at 13:48 ; Status DC Heparin Sodium/ Sodium Chloride 60 unit 1X ONCE IV Last administered on 13:57; Start 11/01/16 at 13:45; Stop 11/01/16 at 13:48; Status DC Lidocaine/Sodium Bicarbonate (Buffered Lidocaine 1%) 3 ml 1X ONCE IJ Last administered on 11/01/16 13:47; Start 11/01/16 at 13:45; Stop 11/01/16 at 13:48 ; Status DC Vitals/I & O Vital Sign - Last 24 Hours 11/03/16 11/03/16 11/03/16 11/03/16 15:00 19:00 20:00 22:50 Temp 98.1 98.1 98.2 98.1 98.1 98.2 Pulse 94 106 90 Resp 16 16 B/P 132/76 136/93 125/93 Pulse Ox 97 96 97 O2 Delivery Room Air Room Air Room Air Room Air 11/04/16 11/04/16 11/04/16 11/04/16 02:50 03:01 07:00 08:44 Temp 98.4 97.8 98.4 97.8 Pulse 86 94 94 Resp 16 18 B/P 133/90 120/77 120/77 Pulse Ox 96 95 O2 Delivery Room Air Venturi Mask Room Air 11/04/16 10:59 Temp 98.1 98.1 Pulse 95 Resp 18 B/P 118/82 Pulse Ox 94 O2 Delivery Room Air Intake and Output 11/03/16 11/03/16 11/04/16 15:00 23:00 07:00 Intake Total 600 ml 1800 ml Output Total 1620 ml 1150 ml Balance 600 ml 180 ml -1150 ml EDWIGE FAIR MD Nov 04, 2016 12:02
[2016-11-04] MEDS ORDERED: LIDOCAINE 1% / SOD BICARB 8.4% 20 ML VIAL. IJ ONE ×3 (13:31→15:45)
[2016-11-04] MEDS ORDERED: MIDAZOLAM HCL/PF 5 MG/5 ML VIAL. ONE (13:47)
[2016-11-04] MEDS ORDERED: fentaNYL PF VIAL 250 MCG/5 ML VIAL ONE (13:48)
[2016-11-04 14:22] LABS: C ANCA <1:20 titer (Neg:<1:20)
[2016-11-04] MEDS ORDERED: MIDAZOLAM HCL/PF 5 MG/5 ML VIAL. IV ONE (14:30)
[2016-11-04] MEDS ORDERED: GELATIN SPONGE SIZE 12-7MM SPONGE. ONE (14:30)
[2016-11-04] MEDS ORDERED: fentaNYL PF VIAL 250 MCG/5 ML VIAL IV ONE (14:30)
[2016-11-04] MEDS ORDERED: IOHEXOL 300 MG/ML 100ML VIAL. ONE (14:55)
[2016-11-04] MEDS ORDERED: MIDAZOLAM HCL/PF 2 MG/2 ML VIAL. ONE (14:58)
[2016-11-04] MEDS ORDERED: fentaNYL PF VIAL 100 MCG/2 ML VIAL ONE (14:58)
[2016-11-04] MEDS ORDERED: IODIXANOL 320 MG/ML 100 ML VIAL. ONE (15:28)
[2016-11-04] MEDS ORDERED: fentaNYL PF VIAL 100 MCG/2 ML VIAL IV ONE (15:45)
[2016-11-04] MEDS ORDERED: MIDAZOLAM HCL/PF 2 MG/2 ML VIAL. IV ONE (15:45)
[2016-11-04] MEDS ORDERED: IODIXANOL 320 MG/ML 100 ML VIAL. IART ONE (15:45)
[2016-11-04] MEDS ORDERED: CONTRAST GIVEN MC PRN (16:00)
[2016-11-04] MEDS ORDERED: oxyCODONE/APAP 7.5/325 1 TAB TABLET PO PRN (16:30)
--- NOTE | 2016-11-04 17:29 | PDOC ---
MODERATE SEDATION ASSESSMENT RISKS/ALTERNATIVES Risks/Alternatives Risks and alternatives of this type of sedation and procedure discussed with: RISK/ALTERNATIVES: Sig. Other (Niece as insurance rater----language barrier) H & P ON CHART H & P H & P on chart and reviewed for co-morbid conditions and appropriate labs. H&P ON CHART: Yes STATUS PREG STATUS ASSESSED: N/A MEDS/ALLERGIES REVIEWED Meds/Allergies Reviewed Medications and Allergies including time and route of recently administered narcotics and sedatives. MEDS/ALLERGIES REVIEWED: Yes ASA RATING ASA RATING: I AIRWAY ASSESSMENT Airway Assessment Airway patency, oral function limitations, presence of caps, crowns, dentures, partials, and ability to extend neck assessed. AIRWAY ASSESSMENT: Yes MALLAMPATI SCORE MALLAMPATI SCORE: II PRE-SEDATION ASSESSMENT PRE-SEDATION ASSESSMENT: Yes GRETA DALLAS MD Nov 04, 2016 17:29
--- NOTE | 2016-11-04 17:41 | PDOC ---
Exam Plane Captain Plane Captain Annabelle Comic Book Writer Comic Book Writer Mary Cates Pre-Procedure Diagnosis Pre-Procedure Diagnosis 25 YO male with ARF, proteinuria, hematuria---probable acute GN---Renal bx requested by Nephrology Post renal bx perinephric bleeding, slowly expanding over time---Renal angio with embolization required Post-Procedure Diagnosis Post-Procedure Diagnosis Same Procedure Performed Procedure Performed CT guided bx lower pole left kidney. Selective/superselective left renal angio with inferior segmental artery coil embolization. Type of Anesthesia Type of Anesthesia Local + Mod sedation for both procedures Estimated Blood Loss EBL: 50 cc Specimens Specimans 1 18G core bx from lower pole left kidney to path in formalin 1 18G core bx from lower pole left kidney to path in Albino's fixative. Condition of Patient Condition of Patient Hemodynamically stable. Renal bleeding resolved on completion post embo images. Disposition Disposition From IR transfer to [facility] for close overnight hemodynamic monitoring. Non contrast CT abd/pelvis in AM to exclude recurrent bleeding. CBC at 2400 and 0600 in AM to exclude recurrent bleeding. F/u with Renal Full report to follow. GRETA DALLAS MD Nov 04, 2016 17:41
[2016-11-04 18:40] LABS: HEMATOCRIT 35.4 % (39.0-53.0); HEMOGLOBIN 11.9 g/dL (13.0-17.5); RED BLOOD COUNT 3.98 x10^6/uL (4.30-5.70); RED CELL DISTRIBUTION WIDTH 12.2 % (11.5-14.5); WHITE BLOOD COUNT 12.3 x10^3/uL (4.0-11.0)
--- NOTE | 2016-11-04 23:39 | PDOC ---
Provider Note Provider Note RENAL F/U: GÓMEZ. S :s/p renal biopsy Bled from it. O : VSS. Afebrile. Somnolent. Neck : Trach Lungs : Decreased bases CVS : RRR Abd: Soft, benign in appearance. Portly Ext: Stable edema Neuro : Grossly intact. A/P: ARF/ ATN HTN w CKD. Wacth H& H Start HD? CPM. ANTONIO MAGAÑA MD Nov 04, 2016 23:39
[2016-11-04] MEDS: oxyCODONE/APAP 7.5/325 1 TAB TABLET PO PRN (23:54)
[2016-11-05] MEDS ORDERED: MORPHINE SULFATE 2 MG/ML DISP.SYRIN. IV PRN
[2016-11-05 00:34] LABS: HEMATOCRIT 33.7 % (39.0-53.0); HEMOGLOBIN 11.3 g/dL (13.0-17.5); RED BLOOD COUNT 3.78 x10^6/uL (4.30-5.70); RED CELL DISTRIBUTION WIDTH 12.2 % (11.5-14.5); WHITE BLOOD COUNT 10.9 x10^3/uL (4.0-11.0)
[2016-11-05 03:25] VITALS: BP 133/73
[2016-11-05] MEDS: HEPARIN PF for SUB-Q USE 5,000 UNIT/0.5 ML VIAL. SQ SCH ×3 (06:00→21:05)
[2016-11-05 06:46] LABS: HEMATOCRIT 29.4 % (39.0-53.0); HEMOGLOBIN 10.2 g/dL (13.0-17.5); RED BLOOD COUNT 3.3 x10^6/uL (4.30-5.70); RED CELL DISTRIBUTION WIDTH 12.2 % (11.5-14.5); WHITE BLOOD COUNT 11.9 x10^3/uL (4.0-11.0)
--- NOTE | 2016-11-05 07:07 | RAD ---
CT-guided renal biopsy Indication: 25-year-old male with acute renal failure, proteinuria, and hematuria. Probable acute glomerulonephritis. Image guided renal biopsy has been requested by nephrology. Anesthesia: 40 minutes moderate sedation was provided utilizing a total of 2 mg Versed and 100 mcg fentanyl, IV. The patient was appropriately monitored by a qualified independent observer throughout the time of moderate sedation. Consent: The procedure was explained in its entirety to the patient and/or the patient's designated sales representatives by a member of the treatment team. The patient speaks no Occitan. The patient's niece served as a fast food fry cook. This included a discussion of risks and benefits and acceptable alternatives to the procedure, as well as expected consequences of no treatment at all. Discussion of risks included, but was not limited to, those that are most frequent and those that are rare, but possibly severe or life-threatening, as well as the possibility of unforeseen complications. Procedure: Informed consent was obtained from the patient, through his niece, who served as a fast food fry cook. He was placed prone on the CT scanner. Preliminary noncontrast CT images were obtained through kidneys. A skin site suitable for CT-guided biopsy of lower pole of left kidney was selected and marked. That area was prepped and draped in the usual sterile fashion. Moderate sedation was provided with IV Versed and fentanyl. Using aseptic technique, local anesthesia, and CT guidance, a 17-gauge guide needle was successfully introduced into lower pole parenchyma of left kidney. A total of 2 18-gauge core biopsy samples were obtained. One biopsy sample was submitted in formalin to pathology. The second biopsy sample was submitted in Albino's fixative to pathology. Immediate postbiopsy CT images revealed a small amount of perinephric bleeding. This was addressed with Gelfoam and autologous clot introduced through the biopsy guide needle, which was then removed. A sterile dressing was applied. Repeat CT images obtained 10 minutes later revealed significant progression in postbiopsy bleeding. Therefore, urgent renal angiogram, with probable embolization, was considered indicated. Impression: CT-guided biopsy of lower pole of left kidney was performed, as described. Despite introduction of autologous clot and Gelfoam through the biopsy guide needle, sequential CT imaging revealed expanding left perinephric hematoma. Therefore, the patient was transported from the CT scanner to the angiography suite, for selective left renal arteriogram with embolization, if indicated. PQRS Compliance Statement: One or more of the following individualized dose reduction techniques was utilized for this procedure: 1. Automated exposure control. 2. Adjustment of MA and/or KV according to patient size. 3. Iterative reconstruction technique.
--- NOTE | 2016-11-05 07:45 | RAD ---
Selective left renal arteriogram with embolization Indication: 25-year-old male with expanding left perinephric hematoma, status post CT-guided biopsy lower pole left kidney. Fluoroscopy time: 14.8 minutes Kerma-area Product: 156 Gycm2 Contrast material: 45 cc Visipaque 320 Anesthesia: 72 minutes moderate sedation was provided utilizing a total of 2 mg Versed and 100 mcg fentanyl, IV. The patient was appropriately monitored by a qualified independent observer throughout the time of moderate sedation. Consent: The procedure was explained in its entirety to the patient's niece by telephone by a member of the treatment team. She then explained the procedure to the patient. This included a discussion of risks and benefits and commonly accepted alternatives to the procedure, as well as expected consequences of no treatment at all. Discussion of risks included, but was not limited to, those that are most frequent and those that are rare, but possibly severe or life-threatening, as well as the possibility of unforeseen complications. Sterility: All elements of maximal sterile barrier technique were utilized, including cap, mask, sterile gown, sterile gloves, large sterile sheet, appropriate hand hygiene, and 2% chlorhexidine for cutaneous antisepsis. Procedure: Informed consent was obtained verbally from the patient and from his niece, who served as a director meetings. He was transported from the CT scanner and was placed supine on the angiography table. Preliminary ultrasound examination of right groin revealed wide patency of right common femoral artery, which was documented with a single hard copy ultrasound image. Right groin was then prepped and draped in the usual sterile fashion, utilizing all elements of maximal sterile barrier technique, as described above. Moderate sedation was provided with IV Versed and fentanyl. Using aseptic technique, local anesthesia, direct ultrasound guidance, and the micropuncture system, a 5 Uzbek right common femoral artery sheath was successfully introduced. Left renal arteriogram: A 5 Uzbek Omni Flush catheter was advanced through the right groin sheath and was utilized to selectively cannulate left renal artery. Visipaque 320 was injected and left renal artery DSA images were obtained. Findings: Single left main renal artery is widely patent. Left lower pole intrarenal branches are suboptimally opacified, suggesting vasospasm. Tiny focal collections of injected contrast material within inferior aspect of left kidney appear consistent with post biopsy injury to left lower pole arcuate arteries. An additional larger area of faintly visible extraluminal contrast material appears to extend from lower pole left kidney into perinephric space. Given these findings, transcatheter embolization of left inferior segmental artery was considered indicated. Transcatheter embolization: The 5 Uzbek Omni Flush catheter was exchanged over a [employer] guidewire for a 6 Uzbek Edilson 1 sheath, which was advanced into mid left main renal artery. A 4 Uzbek angled glide catheter was then carefully advanced over a Glidewire into proximal segment of left inferior segmental artery, with the intention of coaxially inserted during a microcatheter through the angle glide catheter to allow distal embolization of lower pole interlobar branches, preserving renal parenchyma. However, despite gentle manipulation of guidewire and catheter under magnification fluoroscopic guidance, the proximal aspect of the inferior segmental artery was inadvertently perforated, resulting in brisk contrast extravasation. Therefore, coil embolization of the proximal inferior segmental artery was required. A total of three 5x3 tornado coils were then promptly, but carefully advanced through the 4 Uzbek angled glide catheter into proximal left inferior segmental artery. This resulted in exclusion of the area of proximal perforation, as documented on completion DSA images. Completion images also revealed absent opacification of left lower pole interlobar and arcuate arteries, in the area of lower pole postbiopsy vascular injury. No further intervention was considered indicated. Patient tolerated the procedure well. He was transported from the angiography suite to the [address] [place] [address] for careful overnight hemodynamic monitoring. Impression: Successful selective left renal arteriogram, with successful left renal inferior segmental artery transcatheter coil embolization, as described.
[2016-11-05 07:59] VITALS: BP 127/80
[2016-11-05] MEDS: FUROSEMIDE 40 MG TABLET. PO SCH ×2 (09:39→21:02)
[2016-11-05] MEDS: SODIUM BICARBONATE 650 MG TABLET. PO SCH ×3 (09:39→21:02)
[2016-11-05] MEDS: amLODIPine BESYLATE 10 MG TABLET PO SCH (09:39)
--- NOTE | 2016-11-05 10:11 | RAD ---
CT abdomen and pelvis without contrast History: Follow-up left renal bleed after biopsy. Comparison: Images from CT-guided left renal biopsy and subsequent renal artery embolization 11/04/2016. Technique: Helical CT of the abdomen and pelvis was performed without intravenous or oral contrast. Axial, sagittal, and coronal reconstructions were obtained. One or more of the following individualized dose reduction techniques were utilized for the study: Automated exposure control Adjustment of mA and/or kV according to patient's size Use of iterative reconstruction technique. Findings: Evaluation of the solid organs is limited by lack of intravenous contrast. Evaluation of enteric structures may be limited by lack of oral contrast. Visualized chest demonstrate small bilateral pleural effusions, incompletely assessed. There is left greater than right lower lobe consolidation, could be atelectasis, but be difficult to exclude airspace disease. There is a small-moderate amount of ascites which was identified on prebiopsy images from comparison study. Liver is unremarkable as is the spleen and the pancreas. Bilateral adrenal glands are unremarkable. There is dense material involving the gallbladder, compatible with vicarious excretion of intravenous contrast from recent embolization procedure. No bowel obstruction is identified. Small amount of excreted intravenous contrast is seen in urinary bladder. The left retroperitoneum demonstrates presence of multiple foci of gas, compatible with post biopsy iatrogenic gas. The overall amount of left retroperitoneal hemorrhage appears small and fairly similar to postbiopsy hemorrhage seen on comparison of biopsy. There is a curvilinear dense material involving the left retroperitoneum which is associated with a few of the gas foci, compatible with extravasated contrast from the recent embolization procedure. The posterior left kidney as well as the entire right kidney demonstrates mild blush of enhancement, compatible with residual contrast material from the embolization procedure. There is a geographic area of relatively decreased attenuation in the anterior aspect of the left kidney, which is thought to represent not unexpected lack of perfusion secondary to deployment of vascular coils. Impression: 1. Small amount of left retroperitoneal hemorrhage is identified, thought not significantly changed in amount from the postbiopsy images from previous day. 2. Vascular coils are seen involving the left renal hilum, compatible with embolization. The anterior left kidney demonstrates suspected ischemic change, not unexpected given the embolization. 3. Small-moderate ascites. 4. Bilateral pleural effusions. Associated left greater than right lower lobe consolidation.
[2016-11-05 11:23] VITALS: BP 148/87
[2016-11-05 12:06] LABS: HEMATOCRIT 29.9 % (39.0-53.0); HEMOGLOBIN 10.4 g/dL (13.0-17.5); RED BLOOD COUNT 3.43 x10^6/uL (4.30-5.70); RED CELL DISTRIBUTION WIDTH 12.1 % (11.5-14.5); WHITE BLOOD COUNT 12.4 x10^3/uL (4.0-11.0)
--- NOTE | 2016-11-05 13:58 | PDOC ---
PROGRESS NOTES Chief Complaint Chief Complaint acute kidney injury nephrotic syndrome PROTEINURIA HEMATURIA EDEMA HTN History of Present Illness History of Present Illness Patient seen and evaluated at bedside. Patient resting comfortably without apparent signs of distress. Patient tolerated renal biopsy, awaiting results. d/ w nurse. Vitals Vitals Vital Signs Date Time Temp Pulse Resp B/P Pulse Ox O2 Delivery O2 Flow Rate FiO2 11/05/16 11:23 99.8 108 18 148/87 91 Room Air 99.8 11/04/16 16:00 2.0 Physical Exam General: Alert, Oriented X3, Cooperative, No acute distress Heart: Regular rate, Normal S1, Normal S2, No murmurs Lungs: Clear, Other (negative chest retractions and/or accessory muscle use. ) Abdomen: Normal bowel sounds, Soft Extremities: No clubbing Skin: No rashes, Other (dressing to L flank clean, dry, and intact without surrounding erythema or overt drainage. ) Labs LABS Laboratory Tests Test 11/04/16 18:15 11/05/16 00:20 11/05/16 06:00 11/05/16 11:45 White Blood Count 12.3x10^3/uL (4.0-11.0) 10.9x10^3/uL (4.0-11.0) 11.9x10^3/uL (4.0-11.0) 12.4x10^3/uL (4.0-11.0) Red Blood Count 3.98x10^6/uL (4.30-5.70) 3.78x10^6/uL (4.30-5.70) 3.30x10^6/uL (4.30-5.70) 3.43x10^6/uL (4.30-5.70) Hemoglobin 11.9g/dL (13.0-17.5) 11.3g/dL (13.0-17.5) 10.2g/dL (13.0-17.5) 10.4g/dL (13.0-17.5) Hematocrit 35.4% (39.0-53.0) 33.7% (39.0-53.0) 29.4% (39.0-53.0) 29.9% (39.0-53.0) Mean Corpuscular Volume 89fL (79-100) 89fL (79-100) 89fL (79-100) 87fL (79- 100) Mean Corpuscular Hemoglobin 30pg (25-35) 30pg (25-35) 31pg (25-35) 31pg (25- 35) Mean Corpuscular Hemoglobin Concent 34g/dL (31-37) 33g/dL (31-37) 35g/dL (31-37) 35g/dL (31-37) Red Cell Distribution Width 12.2% (11.5-14.5) 12.2% (11.5-14.5) 12.2% (11.5-14.5) 12.1% (11.5-14.5) Platelet Count 255x10^3/uL (140-400) 243x10^3/uL (140-400) 224x10^3/uL (140-400) 231x10^3/uL (140-400) Review of Systems Review of Systems (+) tenderness to L flank at biopsy site. (+) bilateral LE edema, compression stockings on currently ROS limited secondary to language barrier Assessment and Plan Assessmemt and Plan Problems Medical Problems: (1) Accelerated hypertension Status: Acute (2) Acute renal failure (ARF) Status: Acute (3) Peripheral edema Status: Acute (4) Proteinuria Status: Acute Assessment: 1.) Acute Kidney Injury, Creatinine of 5 on admission 2.) nephrotic syndrome with proteinuria 3.) accelerated hypertension, POA 4.) hyperkalemia, POA, currently resolved 5.) bilateral LE edema 6.) minimal left retroperitoneal hemorrhage s/p renal biopsy 7.) bilateral pleural effusions 8.) moderate ascites 9.) mild leukocytosis, most likely reactive s/p biopsy Plan: 1.) creatinine uptrending, consider dialysis evaluation 2.) appreciate subspecialty input 3.) continue diuresis 4.) f/u on renal biopsy and other imaging 5.) social work consult - patient does not have insurance. 6.) monitor AM labs Problems: Comment Review of Relevant I have reviewed the following items javier (where applicable) has been applied. Labs Laboratory Tests Test 11/04/16 05:00 11/04/16 18:15 11/05/16 00:20 11/05/16 06:00 Sodium Level 142mmol/L (136-145) Potassium Level 4.4mmol/L (3.5-5.1) Chloride Level 108mmol/L (98-107) Carbon Dioxide Level 25mmol/L (21-32) Anion Gap 9 (6-14) Blood Urea Nitrogen 54mg/dL (8-26) Creatinine 7.3mg/dL (0.7-1.3) Estimated GFR (Cockcroft-Gault) 9.2 Glucose Level 84mg/dL (70-99) Calcium Level 8.0mg/dL (8.5-10.1) White Blood Count 12.3x10^3/uL (4.0-11.0) 10.9x10^3/uL (4.0-11.0) 11.9x10^3/uL (4.0-11.0) Red Blood Count 3.98x10^6/uL (4.30-5.70) 3.78x10^6/uL (4.30-5.70) 3.30x10^6/uL (4.30-5.70) Hemoglobin 11.9g/dL (13.0-17.5) 11.3g/dL (13.0-17.5) 10.2g/dL (13.0-17.5) Hematocrit 35.4% (39.0-53.0) 33.7% (39.0-53.0) 29.4% (39.0-53.0) Mean Corpuscular Volume 89fL (79-100) 89fL (79-100) 89fL (79-100) Mean Corpuscular Hemoglobin 30pg (25-35) 30pg (25-35) 31pg (25-35) Mean Corpuscular Hemoglobin Concent 34g/dL (31-37) 33g/dL (31-37) 35g/dL (31-37) Red Cell Distribution Width 12.2% (11.5-14.5) 12.2% (11.5-14.5) 12.2% (11.5-14.5) Platelet Count 255x10^3/uL (140-400) 243x10^3/uL (140-400) 224x10^3/uL (140-400) Test 11/05/16 11:45 White Blood Count 12.4x10^3/uL (4.0-11.0) Red Blood Count 3.43x10^6/uL (4.30-5.70) Hemoglobin 10.4g/dL (13.0-17.5) Hematocrit 29.9% (39.0-53.0) Mean Corpuscular Volume 87fL (79-100) Mean Corpuscular Hemoglobin 31pg (25-35) Mean Corpuscular Hemoglobin Concent 35g/dL (31-37) Red Cell Distribution Width 12.1% (11.5-14.5) Platelet Count 231x10^3/uL (140-400) Laboratory Tests Test 11/04/16 18:15 11/05/16 00:20 11/05/16 06:00 11/05/16 11:45 White Blood Count 12.3x10^3/uL (4.0-11.0) 10.9x10^3/uL (4.0-11.0) 11.9x10^3/uL (4.0-11.0) 12.4x10^3/uL (4.0-11.0) Red Blood Count 3.98x10^6/uL (4.30-5.70) 3.78x10^6/uL (4.30-5.70) 3.30x10^6/uL (4.30-5.70) 3.43x10^6/uL (4.30-5.70) Hemoglobin 11.9g/dL (13.0-17.5) 11.3g/dL (13.0-17.5) 10.2g/dL (13.0-17.5) 10.4g/dL (13.0-17.5) Hematocrit 35.4% (39.0-53.0) 33.7% (39.0-53.0) 29.4% (39.0-53.0) 29.9% (39.0-53.0) Mean Corpuscular Volume 89fL (79-100) 89fL (79-100) 89fL (79-100) 87fL (79- 100) Mean Corpuscular Hemoglobin 30pg (25-35) 30pg (25-35) 31pg (25-35) 31pg (25- 35) Mean Corpuscular Hemoglobin Concent 34g/dL (31-37) 33g/dL (31-37) 35g/dL (31-37) 35g/dL (31-37) Red Cell Distribution Width 12.2% (11.5-14.5) 12.2% (11.5-14.5) 12.2% (11.5-14.5) 12.1% (11.5-14.5) Platelet Count 255x10^3/uL (140-400) 243x10^3/uL (140-400) 224x10^3/uL (140-400) 231x10^3/uL (140-400) Medications Current Medications Labetalol HCl (Normodyne) 20 mg 1X ONCE IVP Last administered on 10/30/16 16: 21; Start 10/30/16 at 16:15; Stop 10/30/16 at 16:16; Status DC Ondansetron HCl (Zofran) 4 mg PRN Q8HRS PRN IV NAUSEA/VOMITING; Start 10/30/16 at 17:30; Stop 10/31/16 at 17:29; Status DC Acetaminophen (Tylenol) 650 mg PRN Q6HRS PRN PO FEVER Last administered on 11/03 20:56; Start 10/30/16 at 17:30 Ondansetron HCl (Zofran) 4 mg PRN Q6HRS PRN IV NAUSEA/VOMITING; Start 10/30/16 at 17:30 Hydralazine HCl (Apresoline) 10 mg PRN Q4HRS PRN IVP ELEVATED BP, SEE COMMENTS Last administered on 10/31/16 03:18; Start 10/30/16 at 17:30 Amlodipine Besylate (Norvasc) 10 mg DAILY PO Last administered on 10/30/16 18: 29; Start 10/30/16 at 18:00; Stop 10/30/16 at 23:59; Status DC Sodium Polystyrene Sulfonate (Kayexalate) 15 gm 1X ONCE PO Last administered on 10/30/16 17:34; Start 10/30/16 at 17:30; Stop 10/30/16 at 17:31; Status DC Amlodipine Besylate (Norvasc) 10 mg DAILY PO Last administered on 11/05/16 09: 39; Start 10/31/16 at 09:00 Heparin Sodium (Porcine) 5,000 unit Q8HRS SQ Last administered on 11/03/16 21: 01; Start 10/30/16 at 22:00 Sodium Bicarbonate (Sodium Bicarbonate) 1,300 mg TID PO Last administered on 09:39; Start 10/31/16 at 11:00 Furosemide (Lasix) 40 mg BID PO Last administered on 11/05/16 09:39; Start at 11:00 Heparin Sodium (Porcine) (Heparin Sodium) 10,000 unit STK-MED ONCE .ROUTE ; Start 11/01/16 at 13:02; Stop 11/01/16 at 13:03; Status DC Lidocaine/Sodium Bicarbonate 20 ml 20 ml STK-MED ONCE IJ ; Start 11/01/16 at 13: 02; Stop 11/01/16 at 13:03; Status DC Heparin Sodium/ Sodium Chloride 500 ml @ As Directed STK-MED ONCE .ROUTE ; Start 11/01/16 at 13:02; Stop 11/01/16 at 13:03; Status DC Heparin Sodium (Porcine) (Heparin Sodium) 2,500 unit 1X ONCE INT CAT Last administered on 11/01/16 13:57; Start 11/01/16 at 13:45; Stop 11/01/16 at 13:48 ; Status DC Heparin Sodium/ Sodium Chloride 60 unit 1X ONCE IV Last administered on 13:57; Start 11/01/16 at 13:45; Stop 11/01/16 at 13:48; Status DC Lidocaine/Sodium Bicarbonate (Buffered Lidocaine 1%) 3 ml 1X ONCE IJ Last administered on 11/01/16 13:47; Start 11/01/16 at 13:45; Stop 11/01/16 at 13:48 ; Status DC Lidocaine/Sodium Bicarbonate (Buffered Lidocaine 1%) 20 ml STK-MED ONCE IJ ; Start 11/04/16 at 13:31; Stop 11/04/16 at 13:32; Status DC Midazolam HCl (Versed) 5 mg STK-MED ONCE .ROUTE ; Start 11/04/16 at 13:47; Stop 11/04/16 at 13:48; Status DC Fentanyl Citrate (Fentanyl 5ml Vial) 250 mcg STK-MED ONCE .ROUTE ; Start at 13:48; Stop 11/04/16 at 13:49; Status DC Lidocaine/Sodium Bicarbonate (Buffered Lidocaine 1%) 10 ml 1X ONCE IJ Last administered on 11/04/16 14:24; Start 11/04/16 at 14:30; Stop 11/04/16 at 14:31 ; Status DC Midazolam HCl (Versed) 2 mg 1X ONCE IV Last administered on 11/04/16 14:24; Start 11/04/16 at 14:30; Stop 11/04/16 at 14:31; Status DC Fentanyl Citrate (Fentanyl 5ml Vial) 100 mcg 1X ONCE IV Last administered on 14:24; Start 11/04/16 at 14:30; Stop 11/04/16 at 14:31; Status DC Gelatin (Gelfoam Size 12-7mm) 1 each STK-MED ONCE .ROUTE ; Start 11/04/16 at 14 :30; Stop 11/04/16 at 14:31; Status DC Iohexol 100 ml 100 ml STK-MED ONCE .ROUTE ; Start 11/04/16 at 14:55; Stop at 14:56; Status DC Heparin Sodium/ Sodium Chloride 500 ml @ As Directed STK-MED ONCE .ROUTE ; Start 11/04/16 at 14:58; Stop 11/04/16 at 14:59; Status DC Fentanyl Citrate (Fentanyl 2ml Vial) 100 mcg STK-MED ONCE .ROUTE ; Start at 14:58; Stop 11/04/16 at 14:59; Status DC Midazolam HCl 2 mg 2 mg STK-MED ONCE .ROUTE ; Start 11/04/16 at 14:58; Stop at 14:59; Status DC Heparin Sodium/ Sodium Chloride 500 ml @ As Directed STK-MED ONCE .ROUTE ; Start 11/04/16 at 15:16; Stop 11/04/16 at 15:17; Status DC Iodixanol (Visipaque 320) 100 ml STK-MED ONCE .ROUTE ; Start 11/04/16 at 15:28; Stop 11/04/16 at 15:29; Status DC Heparin Sodium/ Sodium Chloride 1,000 unit 1X ONCE IART Last administered on 15:58; Start 11/04/16 at 15:45; Stop 11/04/16 at 15:51; Status DC Lidocaine/Sodium Bicarbonate (Buffered Lidocaine 1%) 2 ml 1X ONCE IJ Last administered on 11/04/16 15:58; Start 11/04/16 at 15:45; Stop 11/04/16 at 15:51 ; Status DC Midazolam HCl (Versed) 2 mg 1X ONCE IV Last administered on 11/04/16 15:59; Start 11/04/16 at 15:45; Stop 11/04/16 at 15:51; Status DC Fentanyl Citrate (Fentanyl 2ml Vial) 100 mcg 1X ONCE IV Last administered on 15:59; Start 11/04/16 at 15:45; Stop 11/04/16 at 15:51; Status DC Iodixanol (Visipaque 320) 45 ml 1X ONCE IART Last administered on 11/04/16 15 :57; Start 11/04/16 at 15:45; Stop 11/04/16 at 15:51; Status DC Info (Do NOT chart on this entry -- for MONITORING) 1 each PRN DAILY PRN MC SEE COMMENTS; Start 11/04/16 at 16:00; Stop 11/06/16 at 15:59 Oxycodone/ Acetaminophen (Percocet 7.5/ 325) 1 tab PRN Q4HRS PRN PO PAIN Last administered on 11/04/16 17:18; Start 11/04/16 at 16:30; Stop 11/04/16 at 23:47 ; Status DC Oxycodone/ Acetaminophen (Percocet 7.5/ 325) 2 tab PRN Q4HRS PRN PO PAIN Last administered on 11/04/16 23:54; Start 11/05/16 at 00:00 Morphine Sulfate 2 mg PRN Q2HR PRN IV PAIN; Start 11/05/16 at 00:00 Vitals/I & O Vital Sign - Last 24 Hours 11/04/16 11/04/16 11/04/16 11/04/16 14:02 14:07 14:12 14:17 Pulse 86 80 80 82 Resp 19 19 21 24 Pulse Ox 100 99 99 100 O2 Delivery Nasal Cannula Nasal Cannula Nasal Cannula Nasal Cannula O2 Flow Rate 2.0 2.0 2.0 2.0 11/04/16 11/04/16 11/04/16 11/04/16 14:22 14:24 14:37 15:59 Pulse 80 82 Resp 20 20 13 17 Pulse Ox 100 100 100 100 O2 Delivery Nasal Cannula Nasal Cannula Nasal Cannula Nasal Cannula O2 Flow Rate 2.0 2.0 2.0 2.0 11/04/16 11/04/16 11/04/16 11/04/16 16:00 16:30 16:30 16:30 Pulse 82 84 88 Resp 18 18 B/P 134/78 Pulse Ox 100 100 100 100 O2 Delivery Nasal Cannula Room Air Room Air Room Air O2 Flow Rate 2.0 11/04/16 11/04/16 11/04/16 11/04/16 16:45 16:45 17:00 17:00 Pulse 84 85 88 92 B/P 127/77 122/61 Pulse Ox 100 98 98 O2 Delivery Room Air Room Air Room Air 11/04/16 11/04/16 11/04/16 11/04/16 17:15 17:18 17:28 18:00 Pulse 79 84 90 Resp 18 18 18 B/P 124/71 127/75 122/65 O2 Delivery Room Air Room Air Room Air 11/04/16 11/04/16 11/04/16 11/04/16 18:45 19:43 20:00 23:25 Temp 97.9 98.4 97.9 98.4 Pulse 90 90 103 Resp 18 20 B/P 126/75 129/76 119/69 Pulse Ox 94 94 O2 Delivery Room Air Room Air Room Air 11/04/16 11/05/16 11/05/16 11/05/16 23:54 00:54 03:25 07:59 Temp 98.6 98.6 98.6 98.6 Pulse 95 102 Resp 20 18 20 B/P 133/73 127/80 Pulse Ox 93 93 O2 Delivery Room Air Room Air 11/05/16 11/05/16 11/05/16 08:15 09:39 11:23 Temp 99.8 99.8 Pulse 102 108 Resp 18 B/P 127/80 148/87 Pulse Ox 91 O2 Delivery Room Air Room Air Intake and Output 11/04/16 11/04/16 11/05/16 15:00 23:00 07:00 Intake Total 240 ml Output Total 450 ml Balance -210 ml CASTLE,NIAL K III DO Nov 05, 2016 13:57
[2016-11-05 14:41] VITALS: BP 129/82
[2016-11-05 18:01] LABS: BASO % 0 % (0-3); EOS % 0 % (0-3); HEMATOCRIT 31.4 % (39.0-53.0); HEMOGLOBIN 10.6 g/dL (13.0-17.5); LYMPH # 0.7 x10^3/uL (1.0-4.8); LYMPH % 5 % (24-48); MEAN CORPUSCULAR HEMOGLOBIN 30 pg (25-35); MEAN CORPUSCULAR HGB CONC 34 g/dL (31-37); MEAN CORPUSCULAR VOLUME 88 fL (79-100); MONO % 6 % (0-9); NEUT % 89 % (31-73); PLATELET COUNT 228 x10^3/uL (140-400); RED BLOOD COUNT 3.55 x10^6/uL (4.30-5.70); RED CELL DISTRIBUTION WIDTH 12.2 % (11.5-14.5); WHITE BLOOD COUNT 15.8 x10^3/uL (4.0-11.0)
[2016-11-05 18:31] LABS: PLT ESTIMATE ADEQUATE (ADEQUATE)
[2016-11-05 19:45] VITALS: BP 142/83
[2016-11-05] MEDS: ACETAMINOPHEN 325 MG TABLET. PO PRN (19:55)
[2016-11-05 23:30] VITALS: BP 130/80
[2016-11-06 03:25] VITALS: BP 136/88
[2016-11-06] MEDS: ACETAMINOPHEN 325 MG TABLET. PO PRN ×2 (04:02→21:13)
[2016-11-06] MEDS: HEPARIN PF for SUB-Q USE 5,000 UNIT/0.5 ML VIAL. SQ SCH ×3 (06:05→22:02)
[2016-11-06 06:26] LABS: BASO % 0 % (0-3); EOS % 0 % (0-3); HEMATOCRIT 29.6 % (39.0-53.0); HEMOGLOBIN 10.4 g/dL (13.0-17.5); LYMPH # 0.9 x10^3/uL (1.0-4.8); LYMPH % 5 % (24-48); MEAN CORPUSCULAR HEMOGLOBIN 31 pg (25-35); MEAN CORPUSCULAR HGB CONC 35 g/dL (31-37); MEAN CORPUSCULAR VOLUME 87 fL (79-100); MONO % 8 % (0-9); NEUT % 87 % (31-73); PLATELET COUNT 217 x10^3/uL (140-400); RED BLOOD COUNT 3.41 x10^6/uL (4.30-5.70); RED CELL DISTRIBUTION WIDTH 11.9 % (11.5-14.5)
[2016-11-06 06:51] LABS: CALCIUM 8.2 mg/dL (8.5-10.1); CREATININE 8.8 mg/dL (0.7-1.3); GFR 7.4; PHOSPHORUS 4.6 mg/dL (2.6-4.7); POTASSIUM 4.5 mmol/L (3.5-5.1)
[2016-11-06 07:00] VITALS: BP 133/70
[2016-11-06] MEDS: amLODIPine BESYLATE 10 MG TABLET PO SCH (08:29)
[2016-11-06] MEDS: FUROSEMIDE 40 MG TABLET. PO SCH ×2 (08:29→21:13)
[2016-11-06] MEDS: SODIUM BICARBONATE 650 MG TABLET. PO SCH ×3 (08:29→21:13)
[2016-11-06 11:00] VITALS: BP 132/76
--- NOTE | 2016-11-06 11:31 | PDOC ---
SUBJECTIVE ROS ESRD not feeling too good CVS: ? Orthopnea, no CP RESP: min SOB, + GARY GI: no Nausea, no Vomiting : no Dysuria, no Urgency OBJECTIVE Vital Signs Vital Signs Date Time Temp Pulse Resp B/P Pulse Ox O2 Delivery O2 Flow Rate FiO2 11/06/16 08:29 114 136/88 11/06/16 08:00 Room Air 11/06/16 07:00 100.1 18 91 100.1 I & 0 Intake and Output 11/06/16 06:59 Intake Total 700 ml Output Total 750 ml Balance -50 ml Intake Oral 700 ml Output Urine Total 750 ml PHYSICAL EXAM Physical Exam GEN: Awake, Oriented x 3, In no distress EYES: Vision Unchanged, Conjunctiva Normal EN: No EN Drainage, Mucous Membranes moist NECK: min JVD, + JVP, Supple, no Thyromegaly CVS: S1S2, no Murmur, No Gallop, No Rub,+ Edema RESP: rare basal (?Atelectatic) Rales, no Rhonchi, min Acc. 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 Given creat at presentation, and level of fibrosis on Bx Im not sure that Immunosuppression will significantly benefit this gentleman. 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 May need EPO ^ed WBC with lograde fever - ? Etio (Bleed vs other infection) - Bl CX on HD HTN: Current BP meds as reviewed. See orders for changes. Discussed Plan of Care with pt via specialty person phone and dr Schultz at bedside Problems: COMMENT/RELEVANT DATA Meds Current Medications Medications (Trade) Dose Ordered Sig/Alexander Start Time Stop Time Status Last Admin Dose Admin Acetaminophen (Tylenol) 650 mg PRN Q6HRS PRN 10/30/16 17:30 11/06/16 04:02 650 MG Amlodipine Besylate (Norvasc) 10 mg DAILY 10/31/16 09:00 11/06/16 08:29 10 MG Fentanyl Citrate (Fentanyl 2ml Vial) 100 mcg 1X ONCE 11/04/16 15:45 11/04/16 15:51 DC 11/04/16 15:59 100 MCG Fentanyl Citrate (Fentanyl 5ml Vial) 100 mcg 1X ONCE 11/04/16 14:30 11/04/16 14:31 DC 11/04/16 14:24 100 MCG Furosemide (Lasix) 40 mg BID 10/31/16 11:00 11/06/16 08:29 40 MG Gelatin (Gelfoam Size 12-7mm) 1 each STK-MED ONCE 11/04/16 14:30 11/04/16 14:31 DC Heparin Sodium (Porcine) (Heparin Sodium) 2,500 unit 1X ONCE 11/01/16 13:45 11/01/16 13:48 DC 11/01/16 13:57 2,500 UNIT Heparin Sodium/ Sodium Chloride 1,000 unit 1X ONCE 11/04/16 15:45 11/04/16 15:51 DC 11/04/16 15:58 1,000 UNIT Hydralazine HCl (Apresoline) 10 mg PRN Q4HRS PRN 10/30/16 17:30 10/31/16 03:18 10 MG Info (Do NOT chart on this entry -- for MONITORING) 1 each PRN DAILY PRN 11/04/16 16:00 11/06/16 15:59 Iodixanol (Visipaque 320) 45 ml 1X ONCE 11/04/16 15:45 11/04/16 15:51 DC 11/04/16 15:57 45 ML Iohexol (Omnipaque 300 Mg/ml) 100 ml STK-MED ONCE 11/04/16 14:55 11/04/16 14:56 DC Labetalol HCl (Normodyne) 20 mg 1X ONCE 10/30/16 16:15 10/30/16 16:16 DC 10/30/16 16:21 20 MG Lidocaine/Sodium Bicarbonate (Buffered Lidocaine 1%) 2 ml 1X ONCE 11/04/16 15:45 11/04/16 15:51 DC 11/04/16 15:58 2 ML Midazolam HCl (Versed) 2 mg 1X ONCE 11/04/16 15:45 11/04/16 15:51 DC 11/04/16 15:59 2 MG Morphine Sulfate 2 mg PRN Q2HR PRN 11/05/16 00:00 Ondansetron HCl (Zofran) 4 mg PRN Q6HRS PRN 10/30/16 17:30 Oxycodone/ Acetaminophen (Percocet 7.5/ 325) 2 tab PRN Q4HRS PRN 11/05/16 00:00 11/04/16 23:54 2 TAB Sodium Polystyrene Sulfonate (Kayexalate) 15 gm 1X ONCE 10/30/16 17:30 10/30/16 17:31 DC 10/30/16 17:34 15 GM Sodium Bicarbonate (Sodium Bicarbonate) 1,300 mg TID 10/31/16 11:00 11/06/16 08:29 1,300 MG Lab Laboratory Tests Test 11/05/16 11:45 11/05/16 17:35 11/06/16 04:58 White Blood Count 12.4x10^3/uL (4.0-11.0) 15.8x10^3/uL (4.0-11.0) 20.0x10^3/uL (4.0-11.0) Red Blood Count 3.43x10^6/uL (4.30-5.70) 3.55x10^6/uL (4.30-5.70) 3.41x10^6/uL (4.30-5.70) Hemoglobin 10.4g/dL (13.0-17.5) 10.6g/dL (13.0-17.5) 10.4g/dL (13.0-17.5) Hematocrit 29.9% (39.0-53.0) 31.4% (39.0-53.0) 29.6% (39.0-53.0) Mean Corpuscular Volume 87fL (79-100) 88fL (79-100) 87fL (79-100) Mean Corpuscular Hemoglobin 31pg (25-35) 30pg (25-35) 31pg (25-35) Mean Corpuscular Hemoglobin Concent 35g/dL (31-37) 34g/dL (31-37) 35g/dL (31-37) Red Cell Distribution Width 12.1% (11.5-14.5) 12.2% (11.5-14.5) 11.9% (11.5-14.5) Platelet Count 231x10^3/uL (140-400) 228x10^3/uL (140-400) 217x10^3/uL (140-400) Neutrophils (%) (Auto) 89% (31-73) 87% (31-73) Lymphocytes (%) (Auto) 5% (24-48) 5% (24-48) Monocytes (%) (Auto) 6% (0-9) 8% (0-9) Eosinophils (%) (Auto) 0% (0-3) 0% (0-3) Basophils (%) (Auto) 0% (0-3) 0% (0-3) Neutrophils # (Auto) 14.1x10^3uL (1.8-7.7) 17.3x10^3uL (1.8-7.7) Lymphocytes # (Auto) 0.7x10^3/uL (1.0-4.8) 0.9x10^3/uL (1.0-4.8) Monocytes # (Auto) 0.9x10^3/uL (0.0-1.1) 1.7x10^3/uL (0.0-1.1) Eosinophils # (Auto) 0.0x10^3/uL (0.0-0.7) 0.0x10^3/uL (0.0-0.7) Basophils # (Auto) 0.0x10^3/uL (0.0-0.2) 0.0x10^3/uL (0.0-0.2) Segmented Neutrophils % 92% (35-66) Lymphocytes % 3% (24-48) Monocytes % 5% (0-10) Platelet Estimate Adequate (ADEQUATE) Sodium Level 135mmol/L (136-145) Potassium Level 4.5mmol/L (3.5-5.1) Chloride Level 101mmol/L (98-107) Carbon Dioxide Level 23mmol/L (21-32) Anion Gap 11 (6-14) Blood Urea Nitrogen 65mg/dL (8-26) Creatinine 8.8mg/dL (0.7-1.3) Estimated GFR (Cockcroft-Gault) 7.4 Glucose Level 101mg/dL (70-99) Calcium Level 8.2mg/dL (8.5-10.1) Phosphorus Level 4.6mg/dL (2.6-4.7) Albumin 2.0g/dL (3.4-5.0) JORDY URIOSTEGUI MD Nov 06, 2016 11:31
[2016-11-06] MEDS ORDERED: IV NORMAL SALINE 1000ML BAG 1,000 ML IV PRN ×2 (12:23)
[2016-11-06] MEDS ORDERED: diphenhydrAMINE 50 MG/ML VIAL IV PRN ×2 (12:30)
[2016-11-06] MEDS ORDERED: DIALYSIS PATIENT. MC PRN (12:30)
[2016-11-06] MEDS ORDERED: LABETALOL 20 MG/4 ML DISP.SYRIN. IVP PRN (12:30)
[2016-11-06] MEDS ORDERED: cloNIDine HCL 0.1 MG TABLET PO PRN (12:30)
[2016-11-06] MEDS ORDERED: ALBUMIN HUMAN 25% 200 ML IV PRN (12:30)
[2016-11-06] MEDS ORDERED: ACETAMINOPHEN 500 MG TABLET PO PRN (12:30)
--- NOTE | 2016-11-06 13:40 | PDOC ---
PROGRESS NOTES Chief Complaint Chief Complaint acute kidney injury nephrotic syndrome PROTEINURIA HEMATURIA EDEMA HTN History of Present Illness History of Present Illness Patient seen and evaluated at bedside. Patient resting in bed, c/o increased cough and generalized malaise. Per nurse, patient spiked fever of 101 overnight. After discussing with Dr. Pinto, patient opted to undergo dialysis to address the kidney failure. d/w nurse and Dr. Pinto. Vitals Vitals Vital Signs Date Time Temp Pulse Resp B/P Pulse Ox O2 Delivery O2 Flow Rate FiO2 11/06/16 11:00 100.7 116 18 132/76 91 Room Air 100.7 Physical Exam General: Alert, Oriented X3, Cooperative, No acute distress, Other (temporary HD catheter to [facility]) Heart: Normal S1, Normal S2, No murmurs, Other (tachycardic) Lungs: Clear, Other (negative chest retractions and/or accessory muscle use. (+ ) cough ) Abdomen: Normal bowel sounds, Soft, No tenderness Extremities: No clubbing Skin: No rashes, Other (dressing to L flank clean, dry, and intact without surrounding erythema or overt drainage. ) Labs LABS Laboratory Tests Test 11/05/16 17:35 11/06/16 04:58 White Blood Count 15.8x10^3/uL (4.0-11.0) 20.0x10^3/uL (4.0-11.0) Red Blood Count 3.55x10^6/uL (4.30-5.70) 3.41x10^6/uL (4.30-5.70) Hemoglobin 10.6g/dL (13.0-17.5) 10.4g/dL (13.0-17.5) Hematocrit 31.4% (39.0-53.0) 29.6% (39.0-53.0) Mean Corpuscular Volume 88fL (79-100) 87fL (79-100) Mean Corpuscular Hemoglobin 30pg (25-35) 31pg (25-35) Mean Corpuscular Hemoglobin Concent 34g/dL (31-37) 35g/dL (31-37) Red Cell Distribution Width 12.2% (11.5-14.5) 11.9% (11.5-14.5) Platelet Count 228x10^3/uL (140-400) 217x10^3/uL (140-400) Neutrophils (%) (Auto) 89% (31-73) 87% (31-73) Lymphocytes (%) (Auto) 5% (24-48) 5% (24-48) Monocytes (%) (Auto) 6% (0-9) 8% (0-9) Eosinophils (%) (Auto) 0% (0-3) 0% (0-3) Basophils (%) (Auto) 0% (0-3) 0% (0-3) Neutrophils # (Auto) 14.1x10^3uL (1.8-7.7) 17.3x10^3uL (1.8-7.7) Lymphocytes # (Auto) 0.7x10^3/uL (1.0-4.8) 0.9x10^3/uL (1.0-4.8) Monocytes # (Auto) 0.9x10^3/uL (0.0-1.1) 1.7x10^3/uL (0.0-1.1) Eosinophils # (Auto) 0.0x10^3/uL (0.0-0.7) 0.0x10^3/uL (0.0-0.7) Basophils # (Auto) 0.0x10^3/uL (0.0-0.2) 0.0x10^3/uL (0.0-0.2) Segmented Neutrophils % 92% (35-66) Lymphocytes % 3% (24-48) Monocytes % 5% (0-10) Platelet Estimate Adequate (ADEQUATE) Sodium Level 135mmol/L (136-145) Potassium Level 4.5mmol/L (3.5-5.1) Chloride Level 101mmol/L (98-107) Carbon Dioxide Level 23mmol/L (21-32) Anion Gap 11 (6-14) Blood Urea Nitrogen 65mg/dL (8-26) Creatinine 8.8mg/dL (0.7-1.3) Estimated GFR (Cockcroft-Gault) 7.4 Glucose Level 101mg/dL (70-99) Calcium Level 8.2mg/dL (8.5-10.1) Phosphorus Level 4.6mg/dL (2.6-4.7) Albumin 2.0g/dL (3.4-5.0) Review of Systems Review of Systems (+) increased cough (+) generalized malaise. 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 2.) proteinuria 3.) accelerated hypertension, POA 4.) hyperkalemia, POA, currently resolved 5.) bilateral LE edema, improving 6.) minimal left retroperitoneal hemorrhage s/p renal biopsy 7.) bilateral pleural effusions 8.) moderate ascites 9.) leukocytosis, most likely reactive s/p biopsy Plan: 1.) continue with temporary dialysis, managed per nephrology 2.) appreciate subspecialty input 3.) social work consult - patient does not have insurance. 4.) monitor AM labs 5.) continue antihypertensives as appropriate. Problems: Comment Review of Relevant I have reviewed the following items javier (where applicable) has been applied. Labs Laboratory Tests Test 11/04/16 18:15 11/05/16 00:20 11/05/16 06:00 11/05/16 11:45 White Blood Count 12.3x10^3/uL (4.0-11.0) 10.9x10^3/uL (4.0-11.0) 11.9x10^3/uL (4.0-11.0) 12.4x10^3/uL (4.0-11.0) Red Blood Count 3.98x10^6/uL (4.30-5.70) 3.78x10^6/uL (4.30-5.70) 3.30x10^6/uL (4.30-5.70) 3.43x10^6/uL (4.30-5.70) Hemoglobin 11.9g/dL (13.0-17.5) 11.3g/dL (13.0-17.5) 10.2g/dL (13.0-17.5) 10.4g/dL (13.0-17.5) Hematocrit 35.4% (39.0-53.0) 33.7% (39.0-53.0) 29.4% (39.0-53.0) 29.9% (39.0-53.0) Mean Corpuscular Volume 89fL (79-100) 89fL (79-100) 89fL (79-100) 87fL (79- 100) Mean Corpuscular Hemoglobin 30pg (25-35) 30pg (25-35) 31pg (25-35) 31pg (25- 35) Mean Corpuscular Hemoglobin Concent 34g/dL (31-37) 33g/dL (31-37) 35g/dL (31-37) 35g/dL (31-37) Red Cell Distribution Width 12.2% (11.5-14.5) 12.2% (11.5-14.5) 12.2% (11.5-14.5) 12.1% (11.5-14.5) Platelet Count 255x10^3/uL (140-400) 243x10^3/uL (140-400) 224x10^3/uL (140-400) 231x10^3/uL (140-400) Test 11/05/16 17:35 11/06/16 04:58 White Blood Count 15.8x10^3/uL (4.0-11.0) 20.0x10^3/uL (4.0-11.0) Red Blood Count 3.55x10^6/uL (4.30-5.70) 3.41x10^6/uL (4.30-5.70) Hemoglobin 10.6g/dL (13.0-17.5) 10.4g/dL (13.0-17.5) Hematocrit 31.4% (39.0-53.0) 29.6% (39.0-53.0) Mean Corpuscular Volume 88fL (79-100) 87fL (79-100) Mean Corpuscular Hemoglobin 30pg (25-35) 31pg (25-35) Mean Corpuscular Hemoglobin Concent 34g/dL (31-37) 35g/dL (31-37) Red Cell Distribution Width 12.2% (11.5-14.5) 11.9% (11.5-14.5) Platelet Count 228x10^3/uL (140-400) 217x10^3/uL (140-400) Neutrophils (%) (Auto) 89% (31-73) 87% (31-73) Lymphocytes (%) (Auto) 5% (24-48) 5% (24-48) Monocytes (%) (Auto) 6% (0-9) 8% (0-9) Eosinophils (%) (Auto) 0% (0-3) 0% (0-3) Basophils (%) (Auto) 0% (0-3) 0% (0-3) Neutrophils # (Auto) 14.1x10^3uL (1.8-7.7) 17.3x10^3uL (1.8-7.7) Lymphocytes # (Auto) 0.7x10^3/uL (1.0-4.8) 0.9x10^3/uL (1.0-4.8) Monocytes # (Auto) 0.9x10^3/uL (0.0-1.1) 1.7x10^3/uL (0.0-1.1) Eosinophils # (Auto) 0.0x10^3/uL (0.0-0.7) 0.0x10^3/uL (0.0-0.7) Basophils # (Auto) 0.0x10^3/uL (0.0-0.2) 0.0x10^3/uL (0.0-0.2) Segmented Neutrophils % 92% (35-66) Lymphocytes % 3% (24-48) Monocytes % 5% (0-10) Platelet Estimate Adequate (ADEQUATE) Sodium Level 135mmol/L (136-145) Potassium Level 4.5mmol/L (3.5-5.1) Chloride Level 101mmol/L (98-107) Carbon Dioxide Level 23mmol/L (21-32) Anion Gap 11 (6-14) Blood Urea Nitrogen 65mg/dL (8-26) Creatinine 8.8mg/dL (0.7-1.3) Estimated GFR (Cockcroft-Gault) 7.4 Glucose Level 101mg/dL (70-99) Calcium Level 8.2mg/dL (8.5-10.1) Phosphorus Level 4.6mg/dL (2.6-4.7) Albumin 2.0g/dL (3.4-5.0) Laboratory Tests Test 11/05/16 17:35 11/06/16 04:58 White Blood Count 15.8x10^3/uL (4.0-11.0) 20.0x10^3/uL (4.0-11.0) Red Blood Count 3.55x10^6/uL (4.30-5.70) 3.41x10^6/uL (4.30-5.70) Hemoglobin 10.6g/dL (13.0-17.5) 10.4g/dL (13.0-17.5) Hematocrit 31.4% (39.0-53.0) 29.6% (39.0-53.0) Mean Corpuscular Volume 88fL (79-100) 87fL (79-100) Mean Corpuscular Hemoglobin 30pg (25-35) 31pg (25-35) Mean Corpuscular Hemoglobin Concent 34g/dL (31-37) 35g/dL (31-37) Red Cell Distribution Width 12.2% (11.5-14.5) 11.9% (11.5-14.5) Platelet Count 228x10^3/uL (140-400) 217x10^3/uL (140-400) Neutrophils (%) (Auto) 89% (31-73) 87% (31-73) Lymphocytes (%) (Auto) 5% (24-48) 5% (24-48) Monocytes (%) (Auto) 6% (0-9) 8% (0-9) Eosinophils (%) (Auto) 0% (0-3) 0% (0-3) Basophils (%) (Auto) 0% (0-3) 0% (0-3) Neutrophils # (Auto) 14.1x10^3uL (1.8-7.7) 17.3x10^3uL (1.8-7.7) Lymphocytes # (Auto) 0.7x10^3/uL (1.0-4.8) 0.9x10^3/uL (1.0-4.8) Monocytes # (Auto) 0.9x10^3/uL (0.0-1.1) 1.7x10^3/uL (0.0-1.1) Eosinophils # (Auto) 0.0x10^3/uL (0.0-0.7) 0.0x10^3/uL (0.0-0.7) Basophils # (Auto) 0.0x10^3/uL (0.0-0.2) 0.0x10^3/uL (0.0-0.2) Segmented Neutrophils % 92% (35-66) Lymphocytes % 3% (24-48) Monocytes % 5% (0-10) Platelet Estimate Adequate (ADEQUATE) Sodium Level 135mmol/L (136-145) Potassium Level 4.5mmol/L (3.5-5.1) Chloride Level 101mmol/L (98-107) Carbon Dioxide Level 23mmol/L (21-32) Anion Gap 11 (6-14) Blood Urea Nitrogen 65mg/dL (8-26) Creatinine 8.8mg/dL (0.7-1.3) Estimated GFR (Cockcroft-Gault) 7.4 Glucose Level 101mg/dL (70-99) Calcium Level 8.2mg/dL (8.5-10.1) Phosphorus Level 4.6mg/dL (2.6-4.7) Albumin 2.0g/dL (3.4-5.0) Medications Current Medications Labetalol HCl (Normodyne) 20 mg 1X ONCE IVP Last administered on 10/30/16 16: 21; Start 10/30/16 at 16:15; Stop 10/30/16 at 16:16; Status DC Ondansetron HCl (Zofran) 4 mg PRN Q8HRS PRN IV NAUSEA/VOMITING; Start 10/30/16 at 17:30; Stop 10/31/16 at 17:29; Status DC Acetaminophen (Tylenol) 650 mg PRN Q6HRS PRN PO FEVER Last administered on 11/06 04:02; Start 10/30/16 at 17:30 Ondansetron HCl (Zofran) 4 mg PRN Q6HRS PRN IV NAUSEA/VOMITING; Start 10/30/16 at 17:30 Hydralazine HCl (Apresoline) 10 mg PRN Q4HRS PRN IVP ELEVATED BP, SEE COMMENTS Last administered on 10/31/16 03:18; Start 10/30/16 at 17:30 Amlodipine Besylate (Norvasc) 10 mg DAILY PO Last administered on 10/30/16 18: 29; Start 10/30/16 at 18:00; Stop 10/30/16 at 23:59; Status DC Sodium Polystyrene Sulfonate (Kayexalate) 15 gm 1X ONCE PO Last administered on 10/30/16 17:34; Start 10/30/16 at 17:30; Stop 10/30/16 at 17:31; Status DC Amlodipine Besylate (Norvasc) 10 mg DAILY PO Last administered on 11/06/16 08: 29; Start 10/31/16 at 09:00 Heparin Sodium (Porcine) 5,000 unit Q8HRS SQ Last administered on 11/06/16 06: 05; Start 10/30/16 at 22:00 Sodium Bicarbonate (Sodium Bicarbonate) 1,300 mg TID PO Last administered on 08:29; Start 10/31/16 at 11:00 Furosemide (Lasix) 40 mg BID PO Last administered on 11/06/16 08:29; Start at 11:00 Heparin Sodium (Porcine) (Heparin Sodium) 10,000 unit STK-MED ONCE .ROUTE ; Start 11/01/16 at 13:02; Stop 11/01/16 at 13:03; Status DC Lidocaine/Sodium Bicarbonate 20 ml 20 ml STK-MED ONCE IJ ; Start 11/01/16 at 13: 02; Stop 11/01/16 at 13:03; Status DC Heparin Sodium/ Sodium Chloride 500 ml @ As Directed STK-MED ONCE .ROUTE ; Start 11/01/16 at 13:02; Stop 11/01/16 at 13:03; Status DC Heparin Sodium (Porcine) (Heparin Sodium) 2,500 unit 1X ONCE INT CAT Last administered on 11/01/16 13:57; Start 11/01/16 at 13:45; Stop 11/01/16 at 13:48 ; Status DC Heparin Sodium/ Sodium Chloride 60 unit 1X ONCE IV Last administered on 13:57; Start 11/01/16 at 13:45; Stop 11/01/16 at 13:48; Status DC Lidocaine/Sodium Bicarbonate (Buffered Lidocaine 1%) 3 ml 1X ONCE IJ Last administered on 11/01/16 13:47; Start 11/01/16 at 13:45; Stop 11/01/16 at 13:48 ; Status DC Lidocaine/Sodium Bicarbonate (Buffered Lidocaine 1%) 20 ml STK-MED ONCE IJ ; Start 11/04/16 at 13:31; Stop 11/04/16 at 13:32; Status DC Midazolam HCl (Versed) 5 mg STK-MED ONCE .ROUTE ; Start 11/04/16 at 13:47; Stop 11/04/16 at 13:48; Status DC Fentanyl Citrate (Fentanyl 5ml Vial) 250 mcg STK-MED ONCE .ROUTE ; Start at 13:48; Stop 11/04/16 at 13:49; Status DC Lidocaine/Sodium Bicarbonate (Buffered Lidocaine 1%) 10 ml 1X ONCE IJ Last administered on 11/04/16 14:24; Start 11/04/16 at 14:30; Stop 11/04/16 at 14:31 ; Status DC Midazolam HCl (Versed) 2 mg 1X ONCE IV Last administered on 11/04/16 14:24; Start 11/04/16 at 14:30; Stop 11/04/16 at 14:31; Status DC Fentanyl Citrate (Fentanyl 5ml Vial) 100 mcg 1X ONCE IV Last administered on 14:24; Start 11/04/16 at 14:30; Stop 11/04/16 at 14:31; Status DC Gelatin (Gelfoam Size 12-7mm) 1 each STK-MED ONCE .ROUTE ; Start 11/04/16 at 14 :30; Stop 11/04/16 at 14:31; Status DC Iohexol 100 ml 100 ml STK-MED ONCE .ROUTE ; Start 11/04/16 at 14:55; Stop at 14:56; Status DC Heparin Sodium/ Sodium Chloride 500 ml @ As Directed STK-MED ONCE .ROUTE ; Start 11/04/16 at 14:58; Stop 11/04/16 at 14:59; Status DC Fentanyl Citrate (Fentanyl 2ml Vial) 100 mcg STK-MED ONCE .ROUTE ; Start at 14:58; Stop 11/04/16 at 14:59; Status DC Midazolam HCl 2 mg 2 mg STK-MED ONCE .ROUTE ; Start 11/04/16 at 14:58; Stop at 14:59; Status DC Heparin Sodium/ Sodium Chloride 500 ml @ As Directed STK-MED ONCE .ROUTE ; Start 11/04/16 at 15:16; Stop 11/04/16 at 15:17; Status DC Iodixanol (Visipaque 320) 100 ml STK-MED ONCE .ROUTE ; Start 11/04/16 at 15:28; Stop 11/04/16 at 15:29; Status DC Heparin Sodium/ Sodium Chloride 1,000 unit 1X ONCE IART Last administered on 15:58; Start 11/04/16 at 15:45; Stop 11/04/16 at 15:51; Status DC Lidocaine/Sodium Bicarbonate (Buffered Lidocaine 1%) 2 ml 1X ONCE IJ Last administered on 11/04/16 15:58; Start 11/04/16 at 15:45; Stop 11/04/16 at 15:51 ; Status DC Midazolam HCl (Versed) 2 mg 1X ONCE IV Last administered on 11/04/16 15:59; Start 11/04/16 at 15:45; Stop 11/04/16 at 15:51; Status DC Fentanyl Citrate (Fentanyl 2ml Vial) 100 mcg 1X ONCE IV Last administered on 15:59; Start 11/04/16 at 15:45; Stop 11/04/16 at 15:51; Status DC Iodixanol (Visipaque 320) 45 ml 1X ONCE IART Last administered on 11/04/16 15 :57; Start 11/04/16 at 15:45; Stop 11/04/16 at 15:51; Status DC Info (Do NOT chart on this entry -- for MONITORING) 1 each PRN DAILY PRN MC SEE COMMENTS; Start 11/04/16 at 16:00; Stop 11/06/16 at 15:59 Oxycodone/ Acetaminophen (Percocet 7.5/ 325) 1 tab PRN Q4HRS PRN PO PAIN Last administered on 11/04/16 17:18; Start 11/04/16 at 16:30; Stop 11/04/16 at 23:47 ; Status DC Oxycodone/ Acetaminophen (Percocet 7.5/ 325) 2 tab PRN Q4HRS PRN PO PAIN Last administered on 11/04/16t 23:54; Start 11/05/16 at 00:00 Morphine Sulfate 2 mg 2 mg PRN Q2HR PRN IV PAIN; Start 11/05/16 at 00:00 Sodium Chloride 1,000 ml @ 1,000 mls/hr Q1H PRN IV hypotension; Start 11/06/16 at 12:23; Stop 11/06/16 at 18:22 Albumin Human (Albuminar) 200 ml @ 200 mls/hr 1X PRN PRN IV Hypotension; Start 11/06/16 at 12:30; Stop 11/06/16 at 18:29 Acetaminophen (Tylenol) 500 mg 1X PRN PRN PO MILD PAIN / TEMP; Start 11/06/16 at 12:30; Stop 11/07/16 at 12:29 Diphenhydramine HCl (Benadryl) 25 mg 1X PRN PRN IV ITCHING; Start 11/06/16 at 12:30; Stop 11/07/16 at 12:29 Diphenhydramine HCl (Benadryl) 25 mg 1X PRN PRN IV ITCHING; Start 11/06/16 at 12:30; Stop 11/07/16 at 12:29 Labetalol HCl (Normodyne) 10 mg PRN Q1HR PRN IVP SBP > 180; Start 11/06/16 at 12:30; Stop 11/07/16 at 12:29 Clonidine HCl 0.1 mg 0.1 mg 1X PRN PRN PO SBP > 180; Start 11/06/16 at 12:30; Stop 11/07/16 at 12:29 Sodium Chloride (Iv Sodium Chloride 0.9% 1000ml Bag) 1,000 ml @ 400 mls/hr Q2H30M PRN IV PATENCY; Start 11/06/16 at 12:23; Stop 11/07/16 at 00:22 Info (PHARMACY MONITORING -- do not chart) 1 each PRN DAILY PRN MC SEE COMMENTS ; Start 11/06/16 at 12:30 Vitals/I & O Vital Sign - Last 24 Hours 11/05/16 11/05/16 11/05/1625/17 14:41 19:45 20:27 23:30 Temp 99.7 101.7 100.7 99.7 101.7 100.7 Pulse 112 118 116 Resp B/P 129/82 142/83 130/80 Pulse Ox 90 91 91 O2 Delivery Room Air Room Air Room Air Room Air 11/06/16 11/06/16 11/06/16 11/06/16 03:25 07:00 08:00 08:29 Temp 101.0 100.1 101.0 100.1 Pulse 114 103 114 Resp 18 B/P 136/88 133/70 136/88 Pulse Ox 92 91 O2 Delivery Room Air Room Air Room Air 11/06/16 11:00 Temp 100.7 100.7 Pulse 116 Resp 18 B/P 132/76 Pulse Ox 91 O2 Delivery Room Air Intake and Output 11/05/16 11/05/16 11/06/16 14:59 22:59 06:59 Intake Total 200 ml 500 ml Output Total 500 ml 250 ml Balance -500 ml -50 ml 500 ml MILLIE ALVAREZ III DO Nov 06, 2016 13:40
[2016-11-06 16:00] VITALS: BP 122/82
[2016-11-06 19:35] VITALS: BP 112/71
[2016-11-06] MEDS: oxyCODONE/APAP 7.5/325 1 TAB TABLET PO PRN (22:18)
[2016-11-06 23:40] VITALS: BP 112/63
[2016-11-07 03:45] VITALS: BP 123/74
[2016-11-07 04:41] LABS: BASO % 0 % (0-3); EOS % 0 % (0-3); HEMATOCRIT 30.2 % (39.0-53.0); HEMOGLOBIN 10.3 g/dL (13.0-17.5); LYMPH # 1.4 x10^3/uL (1.0-4.8); LYMPH % 8 % (24-48); MEAN CORPUSCULAR HEMOGLOBIN 30 pg (25-35); MEAN CORPUSCULAR HGB CONC 34 g/dL (31-37); MEAN CORPUSCULAR VOLUME 88 fL (79-100); MONO % 10 % (0-9); NEUT % 82 % (31-73); PLATELET COUNT 203 x10^3/uL (140-400); RED BLOOD COUNT 3.43 x10^6/uL (4.30-5.70); RED CELL DISTRIBUTION WIDTH 11.9 % (11.5-14.5); WHITE BLOOD COUNT 18.8 x10^3/uL (4.0-11.0)
[2016-11-07 04:56] LABS: CALCIUM 7.7 mg/dL (8.5-10.1); CREATININE 6.9 mg/dL (0.7-1.3); GFR 9.8; POTASSIUM 4.3 mmol/L (3.5-5.1)
[2016-11-07] MEDS: HEPARIN PF for SUB-Q USE 5,000 UNIT/0.5 ML VIAL. SQ SCH ×3 (06:52→23:04)
[2016-11-07] MEDS ORDERED: IV NORMAL SALINE 1000ML BAG 1,000 ML IV PRN (08:09)
[2016-11-07] MEDS ORDERED: DIALYSIS PATIENT. MC PRN ×2 (08:15)
--- NOTE | 2016-11-07 08:50 | PDOC ---
Dialysis Progress Note Dialysis Note Dialysis Note Seen on Hemodialysis, tolerating treatment Okay Vitals on Hemodialysis: 135/81 94 101.3 General Appearance: Asleep Neck: No JVD or JVP Chest: CTA Noble Heart: S1 S2 Abdomen - Soft NTND Extremities - No Edema ESRD: Dialysis as below F 180 NR 3.0 Hrs 3 K 2.5 Ca 140 Na 30 HC03 Qb 350 + Qd 500+ Heparin 0 Units Uf 0 Kgs or to dry weight as tolerated May give 25-50 gms of 25% Albumin if needed to maintain Hemodynamic stability Treatment plan reviewed and discussed with wellness educator Vitals Vital Signs Vital Signs Date Time Temp Pulse Resp B/P Pulse Ox O2 Delivery O2 Flow Rate FiO2 11/07/16 03:45 98.7 93 15 123/74 97 Room Air 98.7 11/06/16 23:40 2.0 Labs Last Labs Laboratory Tests Test 11/05/16 11:45 11/05/16 17:35 11/06/16 04:58 11/06/16 23:00 White Blood Count 12.4x10^3/uL (4.0-11.0) 15.8x10^3/uL (4.0-11.0) 20.0x10^3/uL (4.0-11.0) Red Blood Count 3.43x10^6/uL (4.30-5.70) 3.55x10^6/uL (4.30-5.70) 3.41x10^6/uL (4.30-5.70) Hemoglobin 10.4g/dL (13.0-17.5) 10.6g/dL (13.0-17.5) 10.4g/dL (13.0-17.5) Hematocrit 29.9% (39.0-53.0) 31.4% (39.0-53.0) 29.6% (39.0-53.0) Mean Corpuscular Volume 87fL (79-100) 88fL (79-100) 87fL (79-100) Mean Corpuscular Hemoglobin 31pg (25-35) 30pg (25-35) 31pg (25-35) Mean Corpuscular Hemoglobin Concent 35g/dL (31-37) 34g/dL (31-37) 35g/dL (31-37) Red Cell Distribution Width 12.1% (11.5-14.5) 12.2% (11.5-14.5) 11.9% (11.5-14.5) Platelet Count 231x10^3/uL (140-400) 228x10^3/uL (140-400) 217x10^3/uL (140-400) Neutrophils (%) (Auto) 89% (31-73) 87% (31-73) Lymphocytes (%) (Auto) 5% (24-48) 5% (24-48) Monocytes (%) (Auto) 6% (0-9) 8% (0-9) Eosinophils (%) (Auto) 0% (0-3) 0% (0-3) Basophils (%) (Auto) 0% (0-3) 0% (0-3) Neutrophils # (Auto) 14.1x10^3uL (1.8-7.7) 17.3x10^3uL (1.8-7.7) Lymphocytes # (Auto) 0.7x10^3/uL (1.0-4.8) 0.9x10^3/uL (1.0-4.8) Monocytes # (Auto) 0.9x10^3/uL (0.0-1.1) 1.7x10^3/uL (0.0-1.1) Eosinophils # (Auto) 0.0x10^3/uL (0.0-0.7) 0.0x10^3/uL (0.0-0.7) Basophils # (Auto) 0.0x10^3/uL (0.0-0.2) 0.0x10^3/uL (0.0-0.2) Segmented Neutrophils % 92% (35-66) Lymphocytes % 3% (24-48) Monocytes % 5% (0-10) Platelet Estimate Adequate (ADEQUATE) Sodium Level 135mmol/L (136-145) Potassium Level 4.5mmol/L (3.5-5.1) Chloride Level 101mmol/L (98-107) Carbon Dioxide Level 23mmol/L (21-32) Anion Gap 11 (6-14) Blood Urea Nitrogen 65mg/dL (8-26) Creatinine 8.8mg/dL (0.7-1.3) Estimated GFR (Cockcroft-Gault) 7.4 Glucose Level 101mg/dL (70-99) Calcium Level 8.2mg/dL (8.5-10.1) Phosphorus Level 4.6mg/dL (2.6-4.7) Albumin 2.0g/dL (3.4-5.0) Lactic Acid Level 0.8mmol/L (0.4-2.0) Test 11/07/16 04:00 White Blood Count 18.8x10^3/uL (4.0-11.0) Red Blood Count 3.43x10^6/uL (4.30-5.70) Hemoglobin 10.3g/dL (13.0-17.5) Hematocrit 30.2% (39.0-53.0) Mean Corpuscular Volume 88fL (79-100) Mean Corpuscular Hemoglobin 30pg (25-35) Mean Corpuscular Hemoglobin Concent 34g/dL (31-37) Red Cell Distribution Width 11.9% (11.5-14.5) Platelet Count 203x10^3/uL (140-400) Neutrophils (%) (Auto) 82% (31-73) Lymphocytes (%) (Auto) 8% (24-48) Monocytes (%) (Auto) 10% (0-9) Eosinophils (%) (Auto) 0% (0-3) Basophils (%) (Auto) 0% (0-3) Neutrophils # (Auto) 15.3x10^3uL (1.8-7.7) Lymphocytes # (Auto) 1.4x10^3/uL (1.0-4.8) Monocytes # (Auto) 1.9x10^3/uL (0.0-1.1) Eosinophils # (Auto) 0.1x10^3/uL (0.0-0.7) Basophils # (Auto) 0.0x10^3/uL (0.0-0.2) Sodium Level 135mmol/L (136-145) Potassium Level 4.3mmol/L (3.5-5.1) Chloride Level 97mmol/L (98-107) Carbon Dioxide Level 34mmol/L (21-32) Anion Gap 4 (6-14) Blood Urea Nitrogen 42mg/dL (8-26) Creatinine 6.9mg/dL (0.7-1.3) Estimated GFR (Cockcroft-Gault) 9.8 Glucose Level 114mg/dL (70-99) Calcium Level 7.7mg/dL (8.5-10.1) Laboratory Tests Test 11/06/16 23:00 11/07/16 04:00 Lactic Acid Level 0.8mmol/L (0.4-2.0) White Blood Count 18.8x10^3/uL (4.0-11.0) Red Blood Count 3.43x10^6/uL (4.30-5.70) Hemoglobin 10.3g/dL (13.0-17.5) Hematocrit 30.2% (39.0-53.0) Mean Corpuscular Volume 88fL (79-100) Mean Corpuscular Hemoglobin 30pg (25-35) Mean Corpuscular Hemoglobin Concent 34g/dL (31-37) Red Cell Distribution Width 11.9% (11.5-14.5) Platelet Count 203x10^3/uL (140-400) Neutrophils (%) (Auto) 82% (31-73) Lymphocytes (%) (Auto) 8% (24-48) Monocytes (%) (Auto) 10% (0-9) Eosinophils (%) (Auto) 0% (0-3) Basophils (%) (Auto) 0% (0-3) Neutrophils # (Auto) 15.3x10^3uL (1.8-7.7) Lymphocytes # (Auto) 1.4x10^3/uL (1.0-4.8) Monocytes # (Auto) 1.9x10^3/uL (0.0-1.1) Eosinophils # (Auto) 0.1x10^3/uL (0.0-0.7) Basophils # (Auto) 0.0x10^3/uL (0.0-0.2) Sodium Level 135mmol/L (136-145) Potassium Level 4.3mmol/L (3.5-5.1) Chloride Level 97mmol/L (98-107) Carbon Dioxide Level 34mmol/L (21-32) Anion Gap 4 (6-14) Blood Urea Nitrogen 42mg/dL (8-26) Creatinine 6.9mg/dL (0.7-1.3) Estimated GFR (Cockcroft-Gault) 9.8 Glucose Level 114mg/dL (70-99) Calcium Level 7.7mg/dL (8.5-10.1) Assessment Assessment Problems Medical Problems: (1) Accelerated hypertension Status: Acute (2) Acute renal failure (ARF) Status: Acute (3) Peripheral edema Status: Acute (4) Proteinuria Status: Acute Problems: Plan Plan of Care Problems Medical Problems: (1) Accelerated hypertension Status: Acute (2) Acute renal failure (ARF) Status: Acute (3) Peripheral edema Status: Acute (4) Proteinuria Status: Acute JORDY URIOSTEGUI MD Nov 07, 2016 08:50
[2016-11-07 11:00] VITALS: BP 124/76
[2016-11-07] MEDS: amLODIPine BESYLATE 10 MG TABLET PO SCH (11:30)
[2016-11-07 15:00] VITALS: BP 120/65
--- NOTE | 2016-11-07 15:01 | PDOC ---
PROGRESS NOTES Chief Complaint Chief Complaint SIRS, fever yesterday acute kidney injury nephrotic syndrome PROTEINURIA HEMATURIA EDEMA HTN History of Present Illness History of Present Illness Patient seen and evaluated at HD fever 103 yesterday, none today and generalized malaise. discussed w. Dr. Pinto, again on dialysis Vitals Vitals Vital Signs Date Time Temp Pulse Resp B/P Pulse Ox O2 Delivery O2 Flow Rate FiO2 11/07/16 11:30 93 123/74 11/07/16 11:00 17 96 Room Air 11/07/16 03:45 98.7 98.7 11/06/16 23:40 2.0 Physical Exam General: Alert, Oriented X3, Cooperative, No acute distress, Other (temporary HD catheter to MAJ) Heart: Normal S1, Normal S2, No murmurs, Other (tachycardic) Lungs: Clear, Other (negative chest retractions and/or accessory muscle use. (+ ) cough ) Abdomen: Normal bowel sounds, Soft, No tenderness Extremities: No clubbing Skin: No rashes, Other (dressing to L flank clean, dry, and intact without surrounding erythema or overt drainage. ) Labs LABS Laboratory Tests Test 11/06/16 23:00 11/07/16 04:00 Lactic Acid Level 0.8mmol/L (0.4-2.0) White Blood Count 18.8x10^3/uL (4.0-11.0) Red Blood Count 3.43x10^6/uL (4.30-5.70) Hemoglobin 10.3g/dL (13.0-17.5) Hematocrit 30.2% (39.0-53.0) Mean Corpuscular Volume 88fL (79-100) Mean Corpuscular Hemoglobin 30pg (25-35) Mean Corpuscular Hemoglobin Concent 34g/dL (31-37) Red Cell Distribution Width 11.9% (11.5-14.5) Platelet Count 203x10^3/uL (140-400) Neutrophils (%) (Auto) 82% (31-73) Lymphocytes (%) (Auto) 8% (24-48) Monocytes (%) (Auto) 10% (0-9) Eosinophils (%) (Auto) 0% (0-3) Basophils (%) (Auto) 0% (0-3) Neutrophils # (Auto) 15.3x10^3uL (1.8-7.7) Lymphocytes # (Auto) 1.4x10^3/uL (1.0-4.8) Monocytes # (Auto) 1.9x10^3/uL (0.0-1.1) Eosinophils # (Auto) 0.1x10^3/uL (0.0-0.7) Basophils # (Auto) 0.0x10^3/uL (0.0-0.2) Sodium Level 135mmol/L (136-145) Potassium Level 4.3mmol/L (3.5-5.1) Chloride Level 97mmol/L (98-107) Carbon Dioxide Level 34mmol/L (21-32) Anion Gap 4 (6-14) Blood Urea Nitrogen 42mg/dL (8-26) Creatinine 6.9mg/dL (0.7-1.3) Estimated GFR (Cockcroft-Gault) 9.8 Glucose Level 114mg/dL (70-99) Calcium Level 7.7mg/dL (8.5-10.1) Assessment and Plan Assessmemt and Plan Problems Medical Problems: (1) Accelerated hypertension Status: Acute (2) Acute renal failure (ARF) Status: Acute (3) Peripheral edema Status: Acute (4) Proteinuria Status: Acute Problems: Comment Review of Relevant I have reviewed the following items javier (where applicable) has been applied. Labs Laboratory Tests Test 11/05/16 17:35 11/06/16 04:58 11/06/16 23:00 11/07/16 04:00 White Blood Count 15.8x10^3/uL (4.0-11.0) 20.0x10^3/uL (4.0-11.0) 18.8x10^3/uL (4.0-11.0) Red Blood Count 3.55x10^6/uL (4.30-5.70) 3.41x10^6/uL (4.30-5.70) 3.43x10^6/uL (4.30-5.70) Hemoglobin 10.6g/dL (13.0-17.5) 10.4g/dL (13.0-17.5) 10.3g/dL (13.0-17.5) Hematocrit 31.4% (39.0-53.0) 29.6% (39.0-53.0) 30.2% (39.0-53.0) Mean Corpuscular Volume 88fL (79-100) 87fL (79-100) 88fL (79-100) Mean Corpuscular Hemoglobin 30pg (25-35) 31pg (25-35) 30pg (25-35) Mean Corpuscular Hemoglobin Concent 34g/dL (31-37) 35g/dL (31-37) 34g/dL (31-37) Red Cell Distribution Width 12.2% (11.5-14.5) 11.9% (11.5-14.5) 11.9% (11.5-14.5) Platelet Count 228x10^3/uL (140-400) 217x10^3/uL (140-400) 203x10^3/uL (140-400) Neutrophils (%) (Auto) 89% (31-73) 87% (31-73) 82% (31-73) Lymphocytes (%) (Auto) 5% (24-48) 5% (24-48) 8% (24-48) Monocytes (%) (Auto) 6% (0-9) 8% (0-9) 10% (0-9) Eosinophils (%) (Auto) 0% (0-3) 0% (0-3) 0% (0-3) Basophils (%) (Auto) 0% (0-3) 0% (0-3) 0% (0-3) Neutrophils # (Auto) 14.1x10^3uL (1.8-7.7) 17.3x10^3uL (1.8-7.7) 15.3x10^3uL (1.8-7.7) Lymphocytes # (Auto) 0.7x10^3/uL (1.0-4.8) 0.9x10^3/uL (1.0-4.8) 1.4x10^3/uL (1.0-4.8) Monocytes # (Auto) 0.9x10^3/uL (0.0-1.1) 1.7x10^3/uL (0.0-1.1) 1.9x10^3/uL (0.0-1.1) Eosinophils # (Auto) 0.0x10^3/uL (0.0-0.7) 0.0x10^3/uL (0.0-0.7) 0.1x10^3/uL (0.0-0.7) Basophils # (Auto) 0.0x10^3/uL (0.0-0.2) 0.0x10^3/uL (0.0-0.2) 0.0x10^3/uL (0.0-0.2) Segmented Neutrophils % 92% (35-66) Lymphocytes % 3% (24-48) Monocytes % 5% (0-10) Platelet Estimate Adequate (ADEQUATE) Sodium Level 135mmol/L (136-145) 135mmol/L (136-145) Potassium Level 4.5mmol/L (3.5-5.1) 4.3mmol/L (3.5-5.1) Chloride Level 101mmol/L (98-107) 97mmol/L (98-107) Carbon Dioxide Level 23mmol/L (21-32) 34mmol/L (21-32) Anion Gap 11 (6-14) 4 (6-14) Blood Urea Nitrogen 65mg/dL (8-26) 42mg/dL (8-26) Creatinine 8.8mg/dL (0.7-1.3) 6.9mg/dL (0.7-1.3) Estimated GFR (Cockcroft-Gault) 7.4 9.8 Glucose Level 101mg/dL (70-99) 114mg/dL (70-99) Calcium Level 8.2mg/dL (8.5-10.1) 7.7mg/dL (8.5-10.1) Phosphorus Level 4.6mg/dL (2.6-4.7) Albumin 2.0g/dL (3.4-5.0) Lactic Acid Level 0.8mmol/L (0.4-2.0) Laboratory Tests Test 11/06/16 23:00 11/07/16 04:00 Lactic Acid Level 0.8mmol/L (0.4-2.0) White Blood Count 18.8x10^3/uL (4.0-11.0) Red Blood Count 3.43x10^6/uL (4.30-5.70) Hemoglobin 10.3g/dL (13.0-17.5) Hematocrit 30.2% (39.0-53.0) Mean Corpuscular Volume 88fL (79-100) Mean Corpuscular Hemoglobin 30pg (25-35) Mean Corpuscular Hemoglobin Concent 34g/dL (31-37) Red Cell Distribution Width 11.9% (11.5-14.5) Platelet Count 203x10^3/uL (140-400) Neutrophils (%) (Auto) 82% (31-73) Lymphocytes (%) (Auto) 8% (24-48) Monocytes (%) (Auto) 10% (0-9) Eosinophils (%) (Auto) 0% (0-3) Basophils (%) (Auto) 0% (0-3) Neutrophils # (Auto) 15.3x10^3uL (1.8-7.7) Lymphocytes # (Auto) 1.4x10^3/uL (1.0-4.8) Monocytes # (Auto) 1.9x10^3/uL (0.0-1.1) Eosinophils # (Auto) 0.1x10^3/uL (0.0-0.7) Basophils # (Auto) 0.0x10^3/uL (0.0-0.2) Sodium Level 135mmol/L (136-145) Potassium Level 4.3mmol/L (3.5-5.1) Chloride Level 97mmol/L (98-107) Carbon Dioxide Level 34mmol/L (21-32) Anion Gap 4 (6-14) Blood Urea Nitrogen 42mg/dL (8-26) Creatinine 6.9mg/dL (0.7-1.3) Estimated GFR (Cockcroft-Gault) 9.8 Glucose Level 114mg/dL (70-99) Calcium Level 7.7mg/dL (8.5-10.1) Microbiology 11/06/16 Blood Culture - Preliminary, Resulted NO GROWTH AFTER 1 DAY Medications Current Medications Labetalol HCl (Normodyne) 20 mg 1X ONCE IVP Last administered on 10/30/16t 16: 21; Start 10/30/16 at 16:15; Stop 10/30/16 at 16:16; Status DC Ondansetron HCl (Zofran) 4 mg PRN Q8HRS PRN IV NAUSEA/VOMITING; Start 10/30/16 at 17:30; Stop 10/31/16 at 17:29; Status DC Acetaminophen (Tylenol) 650 mg PRN Q6HRS PRN PO FEVER Last administered on 11/06 21:13; Start 10/30/16 at 17:30 Ondansetron HCl (Zofran) 4 mg PRN Q6HRS PRN IV NAUSEA/VOMITING; Start 10/30/16 at 17:30 Hydralazine HCl (Apresoline) 10 mg PRN Q4HRS PRN IVP ELEVATED BP, SEE COMMENTS Last administered on 10/31/16 03:18; Start 10/30/16 at 17:30 Amlodipine Besylate (Norvasc) 10 mg DAILY PO Last administered on 10/30/16 18: 29; Start 10/30/16 at 18:00; Stop 10/30/16 at 23:59; Status DC Sodium Polystyrene Sulfonate (Kayexalate) 15 gm 1X ONCE PO Last administered on 10/30/16 17:34; Start 10/30/16 at 17:30; Stop 10/30/16 at 17:31; Status DC Amlodipine Besylate (Norvasc) 10 mg DAILY PO Last administered on 11/07/16 11: 30; Start 10/31/16 at 09:00 Heparin Sodium (Porcine) 5,000 unit Q8HRS SQ Last administered on 11/07/16 06: 52; Start 10/30/16 at 22:00 Sodium Bicarbonate (Sodium Bicarbonate) 1,300 mg TID PO Last administered on 21:13; Start 10/31/16 at 11:00; Stop 11/07/16 at 08:52; Status DC Furosemide (Lasix) 40 mg BID PO Last administered on 11/06/16 21:13; Start at 11:00; Stop 11/07/16 at 08:52; Status DC Heparin Sodium (Porcine) (Heparin Sodium) 10,000 unit STK-MED ONCE .ROUTE ; Start 11/01/16 at 13:02; Stop 11/01/16 at 13:03; Status DC Lidocaine/Sodium Bicarbonate 20 ml 20 ml STK-MED ONCE IJ ; Start 11/01/16 at 13: 02; Stop 11/01/16 at 13:03; Status DC Heparin Sodium/ Sodium Chloride 500 ml @ As Directed STK-MED ONCE .ROUTE ; Start 11/01/16 at 13:02; Stop 11/01/16 at 13:03; Status DC Heparin Sodium (Porcine) (Heparin Sodium) 2,500 unit 1X ONCE INT CAT Last administered on 11/01/16 13:57; Start 11/01/16 at 13:45; Stop 11/01/16 at 13:48 ; Status DC Heparin Sodium/ Sodium Chloride 60 unit 1X ONCE IV Last administered on 13:57; Start 11/01/16 at 13:45; Stop 11/01/16 at 13:48; Status DC Lidocaine/Sodium Bicarbonate (Buffered Lidocaine 1%) 3 ml 1X ONCE IJ Last administered on 11/01/16 13:47; Start 11/01/16 at 13:45; Stop 11/01/16 at 13:48 ; Status DC Lidocaine/Sodium Bicarbonate (Buffered Lidocaine 1%) 20 ml STK-MED ONCE IJ ; Start 11/04/16 at 13:31; Stop 11/04/16 at 13:32; Status DC Midazolam HCl (Versed) 5 mg STK-MED ONCE .ROUTE ; Start 11/04/16 at 13:47; Stop 11/04/16 at 13:48; Status DC Fentanyl Citrate (Fentanyl 5ml Vial) 250 mcg STK-MED ONCE .ROUTE ; Start at 13:48; Stop 11/04/16 at 13:49; Status DC Lidocaine/Sodium Bicarbonate (Buffered Lidocaine 1%) 10 ml 1X ONCE IJ Last administered on 11/04/16 14:24; Start 11/04/16 at 14:30; Stop 11/04/16 at 14:31 ; Status DC Midazolam HCl (Versed) 2 mg 1X ONCE IV Last administered on 11/04/16 14:24; Start 11/04/16 at 14:30; Stop 11/04/16 at 14:31; Status DC Fentanyl Citrate (Fentanyl 5ml Vial) 100 mcg 1X ONCE IV Last administered on 14:24; Start 11/04/16 at 14:30; Stop 11/04/16 at 14:31; Status DC Gelatin (Gelfoam Size 12-7mm) 1 each STK-MED ONCE .ROUTE ; Start 11/04/16 at 14 :30; Stop 11/04/16 at 14:31; Status DC Iohexol 100 ml 100 ml STK-MED ONCE .ROUTE ; Start 11/04/16 at 14:55; Stop at 14:56; Status DC Heparin Sodium/ Sodium Chloride 500 ml @ As Directed STK-MED ONCE .ROUTE ; Start 11/04/16 at 14:58; Stop 11/04/16 at 14:59; Status DC Fentanyl Citrate (Fentanyl 2ml Vial) 100 mcg STK-MED ONCE .ROUTE ; Start at 14:58; Stop 11/04/16 at 14:59; Status DC Midazolam HCl 2 mg 2 mg STK-MED ONCE .ROUTE ; Start 11/04/16 at 14:58; Stop at 14:59; Status DC Heparin Sodium/ Sodium Chloride 500 ml @ As Directed STK-MED ONCE .ROUTE ; Start 11/04/16 at 15:16; Stop 11/04/16 at 15:17; Status DC Iodixanol (Visipaque 320) 100 ml STK-MED ONCE .ROUTE ; Start 11/04/16 at 15:28; Stop 11/04/16 at 15:29; Status DC Heparin Sodium/ Sodium Chloride 1,000 unit 1X ONCE IART Last administered on 15:58; Start 11/04/16 at 15:45; Stop 11/04/16 at 15:51; Status DC Lidocaine/Sodium Bicarbonate (Buffered Lidocaine 1%) 2 ml 1X ONCE IJ Last administered on 11/04/16 15:58; Start 11/04/16 at 15:45; Stop 11/04/16 at 15:51 ; Status DC Midazolam HCl (Versed) 2 mg 1X ONCE IV Last administered on 11/04/16 15:59; Start 11/04/16 at 15:45; Stop 11/04/16 at 15:51; Status DC Fentanyl Citrate (Fentanyl 2ml Vial) 100 mcg 1X ONCE IV Last administered on 15:59; Start 11/04/16 at 15:45; Stop 11/04/16 at 15:51; Status DC Iodixanol (Visipaque 320) 45 ml 1X ONCE IART Last administered on 11/04/16 15 :57; Start 11/04/16 at 15:45; Stop 11/04/16 at 15:51; Status DC Info (Do NOT chart on this entry -- for MONITORING) 1 each PRN DAILY PRN MC SEE COMMENTS; Start 11/04/16 at 16:00; Stop 11/06/16 at 15:59; Status DC Oxycodone/ Acetaminophen (Percocet 7.5/ 325) 1 tab PRN Q4HRS PRN PO PAIN Last administered on 11/04/16 17:18; Start 11/04/16 at 16:30; Stop 11/04/16 at 23:47 ; Status DC Oxycodone/ Acetaminophen (Percocet 7.5/ 325) 2 tab PRN Q4HRS PRN PO PAIN Last administered on 11/06/16 22:18; Start 11/05/16 at 00:00 Morphine Sulfate 2 mg 2 mg PRN Q2HR PRN IV PAIN; Start 11/05/16 at 00:00 Sodium Chloride 1,000 ml @ 1,000 mls/hr Q1H PRN IV hypotension; Start 11/06/16 at 12:23; Stop 11/06/16 at 18:22; Status DC Albumin Human (Albuminar) 200 ml @ 200 mls/hr 1X PRN PRN IV Hypotension; Start 11/06/16 at 12:30; Stop 11/06/16 at 18:29; Status DC Acetaminophen (Tylenol) 500 mg 1X PRN PRN PO MILD PAIN / TEMP; Start 11/06/16 at 12:30; Stop 11/07/16 at 12:29; Status DC Diphenhydramine HCl (Benadryl) 25 mg 1X PRN PRN IV ITCHING; Start 11/06/16 at 12:30; Stop 11/07/16 at 12:29; Status DC Diphenhydramine HCl (Benadryl) 25 mg 1X PRN PRN IV ITCHING; Start 11/06/16 at 12:30; Stop 11/07/16 at 12:29; Status DC Labetalol HCl (Normodyne) 10 mg PRN Q1HR PRN IVP SBP > 180; Start 11/06/16 at 12:30; Stop 11/07/16 at 12:29; Status DC Clonidine HCl 0.1 mg 0.1 mg 1X PRN PRN PO SBP > 180; Start 11/06/16 at 12:30; Stop 11/07/16 at 12:29; Status DC Sodium Chloride (Iv Sodium Chloride 0.9% 1000ml Bag) 1,000 ml @ 400 mls/hr Q2H30M PRN IV PATENCY; Start 11/06/16 at 12:23; Stop 11/07/16 at 00:22; Status DC Info 1 each 1 each PRN DAILY PRN MC SEE COMMENTS; Start 11/06/16 at 12:30; Stop 11/07/16 at 08:12; Status DC Sodium Chloride (Iv Sodium Chloride 0.9% 1000ml Bag) 1,000 ml @ 1,000 mls/hr Q1H PRN IV hypotension; Start 11/07/16 at 08:09; Stop 11/07/16 at 14:08; Status DC Info (PHARMACY MONITORING -- do not chart) 1 each PRN DAILY PRN MC SEE COMMENTS ; Start 11/07/16 at 08:15; Stop 11/07/16 at 08:15; Status DC Info (PHARMACY MONITORING -- do not chart) 1 each PRN DAILY PRN MC SEE COMMENTS ; Start 11/07/16 at 08:15 Vitals/I & O Vital Sign - Last 24 Hours 11/06/16 11/06/16 11/06/16 11/06/16 16:00 19:35 20:00 21:20 Temp 98.6 101.2 103.2 98.6 101.2 103.2 Pulse 120 115 Resp 18 24 B/P 122/82 112/71 Pulse Ox 93 90 O2 Delivery Room Air Room Air Room Air 11/06/16 11/06/16 11/06/16 11/07/16 22:18 23:18 23:40 03:45 Temp 99.3 98.7 99.3 98.7 Pulse 86 93 Resp 18 15 B/P 112/63 123/74 Pulse Ox 96 95 97 O2 Delivery Nasal Cannula Room Air Room Air O2 Flow Rate 2.0 2.0 11/07/16 11/07/16 11/07/16 08:10 11:00 11:30 Pulse 90 93 Resp 17 B/P 124/76 123/74 Pulse Ox 96 O2 Delivery Room Air Room Air Intake and Output 11/06/16 11/06/16 11/07/16 15:00 23:00 07:00 Intake Total 250 ml Output Total 1750 ml 300 ml Balance -1750 ml 250 ml -300 ml GEO FLORES MD Nov 07, 2016 15:01
--- NOTE | 2016-11-07 16:04 | RAD ---
Exam: PA and lateral chest radiograph History: Fever, patient on dialysis. Comparison: 10/30/2016. Findings: Cardiac silhouette appears at the upper limits of normal for size. Right internal jugular dialysis catheter is in place with tip projecting at the atriocaval junction. There is evidence of small left pleural effusion. There may be minimal right pleural effusion. There is left basilar density, could be atelectasis, although pneumonia is not excluded. Pulmonary vascularity is without evidence of failure. Impression: 1. Small left pleural effusion. Associated left lower lobe parenchymal density, could be atelectasis pneumonia. 2. Trace right pleural effusion.
[2016-11-07 19:00] VITALS: BP 126/66
[2016-11-07] MEDS: ACETAMINOPHEN 325 MG TABLET. PO PRN (19:33)
[2016-11-07] MEDS: PIPERACILLIN/TAZOBACTAM 2.25 GM in IV NORMAL SALINE 50ML 50 ML IV SCH (19:48)
[2016-11-07] MEDS ORDERED: VANCOMYCIN 1 GM in IV NORMAL SALINE 250ML 250 ML IV ONE (20:00)
[2016-11-08 03:05] VITALS: BP 113/63
[2016-11-08] MEDS: PIPERACILLIN/TAZOBACTAM 2.25 GM in IV NORMAL SALINE 50ML 50 ML IV SCH ×3 (05:56→23:47)
[2016-11-08] MEDS: HEPARIN PF for SUB-Q USE 5,000 UNIT/0.5 ML VIAL. SQ SCH ×3 (05:58→23:56)
[2016-11-08 06:05] LABS: BASO % 0 % (0-3); EOS % 2 % (0-3); HEMATOCRIT 26.2 % (39.0-53.0); HEMOGLOBIN 9.2 g/dL (13.0-17.5); LYMPH # 1.2 x10^3/uL (1.0-4.8); LYMPH % 8 % (24-48); MEAN CORPUSCULAR HEMOGLOBIN 31 pg (25-35); MEAN CORPUSCULAR HGB CONC 35 g/dL (31-37); MEAN CORPUSCULAR VOLUME 87 fL (79-100); MONO % 9 % (0-9); NEUT % 81 % (31-73); PLATELET COUNT 204 x10^3/uL (140-400); RED BLOOD COUNT 2.99 x10^6/uL (4.30-5.70); RED CELL DISTRIBUTION WIDTH 11.9 % (11.5-14.5); WHITE BLOOD COUNT 15.5 x10^3/uL (4.0-11.0)
[2016-11-08 06:25] LABS: CALCIUM 7.8 mg/dL (8.5-10.1); CREATININE 5.9 mg/dL (0.7-1.3); GFR 11.7; POTASSIUM 4.4 mmol/L (3.5-5.1)
[2016-11-08] MEDS ORDERED: IV NORMAL SALINE 1000ML BAG 1,000 ML IV PRN (07:35)
[2016-11-08] MEDS ORDERED: DIALYSIS PATIENT. MC PRN ×2 (07:45)
[2016-11-08] MEDS ORDERED: 0.9 % SODIUM CHLORIDE 10 ML DISP.SYRIN. IV PRN ×2 (07:45)
--- NOTE | 2016-11-08 09:33 | PDOC ---
PROGRESS NOTES Chief Complaint Chief Complaint SIRS TITUS ASSESSMENT AND PLAN: 1. TITUS: nephrotic syndrome with resultant edema; renal bx pending. on HD for now 2. Fever/SIRS: ? infectious. cultures pending. ?HIV. appreciate ID service input. started on empiric Zosyn 3. Hematuria: with bx 4. accelerated HTN: on norvasc 10 History of Present Illness History of Present Illness runny nose off and on. did not feel feverish since last PM. no pain Vitals Vitals Vital Signs Date Time Temp Pulse Resp B/P Pulse Ox O2 Delivery O2 Flow Rate FiO2 11/08/16 03:05 98.8 92 12 113/63 98 Nasal Cannula 2.0 98.8 Physical Exam General: Alert, Oriented X3, Cooperative, No acute distress, Other (temporary HD catheter to AZJ) Heart: Regular rate, No murmurs Lungs: Clear Abdomen: Normal bowel sounds, Soft, No tenderness Extremities: No clubbing Skin: No rashes, Other (dressing to L flank clean, dry, and intact without surrounding erythema or overt drainage. ) Labs LABS Laboratory Tests Test 11/08/16 05:30 White Blood Count 15.5x10^3/uL (4.0-11.0) Red Blood Count 2.99x10^6/uL (4.30-5.70) Hemoglobin 9.2g/dL (13.0-17.5) Hematocrit 26.2% (39.0-53.0) Mean Corpuscular Volume 87fL (79-100) Mean Corpuscular Hemoglobin 31pg (25-35) Mean Corpuscular Hemoglobin Concent 35g/dL (31-37) Red Cell Distribution Width 11.9% (11.5-14.5) Platelet Count 204x10^3/uL (140-400) Neutrophils (%) (Auto) 81% (31-73) Lymphocytes (%) (Auto) 8% (24-48) Monocytes (%) (Auto) 9% (0-9) Eosinophils (%) (Auto) 2% (0-3) Basophils (%) (Auto) 0% (0-3) Neutrophils # (Auto) 12.5x10^3uL (1.8-7.7) Lymphocytes # (Auto) 1.2x10^3/uL (1.0-4.8) Monocytes # (Auto) 1.4x10^3/uL (0.0-1.1) Eosinophils # (Auto) 0.3x10^3/uL (0.0-0.7) Basophils # (Auto) 0.0x10^3/uL (0.0-0.2) Sodium Level 135mmol/L (136-145) Potassium Level 4.4mmol/L (3.5-5.1) Chloride Level 102mmol/L (98-107) Carbon Dioxide Level 29mmol/L (21-32) Anion Gap 4 (6-14) Blood Urea Nitrogen 37mg/dL (8-26) Creatinine 5.9mg/dL (0.7-1.3) Estimated GFR (Cockcroft-Gault) 11.7 Glucose Level 105mg/dL (70-99) Calcium Level 7.8mg/dL (8.5-10.1) INES MCALLISTER MD Nov 08, 2016 09:33
--- NOTE | 2016-11-08 10:27 | PDOC ---
SUBJECTIVE ROS ESRD HD done earlier today susanne well OBJECTIVE Vital Signs Vital Signs Date Time Temp Pulse Resp B/P Pulse Ox O2 Delivery O2 Flow Rate FiO2 11/08/16 08:20 Nasal Cannula 2.0 11/08/16 03:05 98.8 92 12 113/63 98 98.8 I & 0 Intake and Output 11/08/16 07:00 Intake Total 250 ml Output Total 900 ml Balance -650 ml Intake Oral 250 ml Output Urine Total 900 ml PHYSICAL EXAM Physical Exam Asleep Neck: No JVD or JVP Chest: CTA [place] Heart: S1 S2 Abdomen - Soft NTND Extremities - No Edema ESRD: Dialysis done - see orders COMMENT/RELEVANT DATA Meds Current Medications Medications (Trade) Dose Ordered Sig/Alexander Start Time Stop Time Status Last Admin Dose Admin Acetaminophen (Tylenol) 500 mg 1X PRN PRN 11/06/16 12:30 11/07/16 12:29 DC Albumin Human (Albuminar) 200 ml @ 200 mls/hr 1X PRN PRN 11/06/16 12:30 11/06/16 18:29 DC Amlodipine Besylate (Norvasc) 10 mg DAILY 10/31/16 09:00 11/07/16 11:30 10 MG Clonidine HCl (Catapres) 0.1 mg 1X PRN PRN 11/06/16 12:30 11/07/16 12:29 DC Diphenhydramine HCl (Benadryl) 25 mg 1X PRN PRN 11/06/16 12:30 11/07/16 12:29 DC Fentanyl Citrate (Fentanyl 2ml Vial) 100 mcg 1X ONCE 11/04/16 15:45 11/04/16 15:51 DC 11/04/16 15:59 100 MCG Fentanyl Citrate (Fentanyl 5ml Vial) 100 mcg 1X ONCE 11/04/16 14:30 11/04/16 14:31 DC 11/04/16 14:24 100 MCG Furosemide (Lasix) 40 mg BID 10/31/16 11:00 11/07/16 08:52 DC 11/06/16 21:13 40 MG Gelatin (Gelfoam Size 12-7mm) 1 each STK-MED ONCE 11/04/16 14:30 11/04/16 14:31 DC Heparin Sodium (Porcine) (Heparin Sodium) 2,500 unit 1X ONCE 11/01/16 13:45 11/01/16 13:48 DC 11/01/16 13:57 2,500 UNIT Heparin Sodium/ Sodium Chloride 1,000 unit 1X ONCE 11/04/16 15:45 11/04/16 15:51 DC 11/04/16 15:58 1,000 UNIT Hydralazine HCl (Apresoline) 10 mg PRN Q4HRS PRN 10/30/16 17:30 10/31/16 03:18 10 MG Info (Do NOT chart on this entry -- for MONITORING) 1 each PRN DAILY PRN 11/04/16 16:00 11/06/16 15:59 DC Info (PHARMACY MONITORING -- do not chart) 1 each PRN DAILY PRN 11/08/16 07:45 Cancel Info 1 each 1 each PRN DAILY PRN 11/07/16 08:15 Iodixanol (Visipaque 320) 45 ml 1X ONCE 11/04/16 15:45 11/04/16 15:51 DC 11/04/16 15:57 45 ML Iohexol (Omnipaque 300 Mg/ml) 100 ml STK-MED ONCE 11/04/16 14:55 11/04/16 14:56 DC Labetalol HCl (Normodyne) 10 mg PRN Q1HR PRN 11/06/16 12:30 11/07/16 12:29 DC Lidocaine/Sodium Bicarbonate (Buffered Lidocaine 1%) 2 ml 1X ONCE 11/04/16 15:45 11/04/16 15:51 DC 11/04/16 15:58 2 ML Midazolam HCl (Versed) 2 mg 1X ONCE 11/04/16 15:45 11/04/16 15:51 DC 11/04/16 15:59 2 MG Morphine Sulfate 2 mg 2 mg PRN Q2HR PRN 11/05/16 00:00 Ondansetron HCl (Zofran) 4 mg PRN Q6HRS PRN 10/30/16 17:30 Oxycodone/ Acetaminophen (Percocet 7.5/ 325) 2 tab PRN Q4HRS PRN 11/05/16 00:00 11/06/16 22:18 1 TAB Piperacillin Sod/ Tazobactam Sod 2.25 gm/Sodium Chloride 50 ml @ 100 mls/hr Q8HRS 11/07/16 19:30 11/08/16 05:56 100 MLS/HR Sodium Polystyrene Sulfonate (Kayexalate) 15 gm 1X ONCE 10/30/16 17:30 10/30/16 17:31 DC 10/30/16 17:34 15 GM Sodium Bicarbonate (Sodium Bicarbonate) 1,300 mg TID 10/31/16 11:00 11/07/16 08:52 DC 11/06/16 21:13 1,300 MG Sodium Chloride (Iv Sodium Chloride 0.9% 1000ml Bag) 1,000 ml @ 1,000 mls/hr Q1H PRN 11/08/16 07:35 11/08/16 13:34 Sodium Chloride (Normal Saline Flush) 10 ml 1X PRN PRN 11/08/16 07:45 11/09/16 07:44 Vancomycin HCl 1 gm/Sodium Chloride 250 ml @ 250 mls/hr 1X ONCE 11/07/16 20:00 11/07/16 20:59 DC 11/07/16 20:25 250 MLS/HR Lab Laboratory Tests Test 11/08/16 05:30 White Blood Count 15.5x10^3/uL (4.0-11.0) Red Blood Count 2.99x10^6/uL (4.30-5.70) Hemoglobin 9.2g/dL (13.0-17.5) Hematocrit 26.2% (39.0-53.0) Mean Corpuscular Volume 87fL (79-100) Mean Corpuscular Hemoglobin 31pg (25-35) Mean Corpuscular Hemoglobin Concent 35g/dL (31-37) Red Cell Distribution Width 11.9% (11.5-14.5) Platelet Count 204x10^3/uL (140-400) Neutrophils (%) (Auto) 81% (31-73) Lymphocytes (%) (Auto) 8% (24-48) Monocytes (%) (Auto) 9% (0-9) Eosinophils (%) (Auto) 2% (0-3) Basophils (%) (Auto) 0% (0-3) Neutrophils # (Auto) 12.5x10^3uL (1.8-7.7) Lymphocytes # (Auto) 1.2x10^3/uL (1.0-4.8) Monocytes # (Auto) 1.4x10^3/uL (0.0-1.1) Eosinophils # (Auto) 0.3x10^3/uL (0.0-0.7) Basophils # (Auto) 0.0x10^3/uL (0.0-0.2) Sodium Level 135mmol/L (136-145) Potassium Level 4.4mmol/L (3.5-5.1) Chloride Level 102mmol/L (98-107) Carbon Dioxide Level 29mmol/L (21-32) Anion Gap 4 (6-14) Blood Urea Nitrogen 37mg/dL (8-26) Creatinine 5.9mg/dL (0.7-1.3) Estimated GFR (Cockcroft-Gault) 11.7 Glucose Level 105mg/dL (70-99) Calcium Level 7.8mg/dL (8.5-10.1) JORDY URIOSTEGUI MD Nov 08, 2016 10:27
[2016-11-08] MEDS: amLODIPine BESYLATE 10 MG TABLET PO SCH (10:48)
[2016-11-08 11:00] VITALS: BP 122/71
[2016-11-08] MEDS: ACETAMINOPHEN 325 MG TABLET. PO PRN ×2 (11:45→23:47)
--- NOTE | 2016-11-08 11:49 | PDOC ---
Infectious Disease Note ROS ROS Vital Sign Vital Signs Vital Signs Date Time Temp Pulse Resp B/P Pulse Ox O2 Delivery O2 Flow Rate FiO2 11/08/16 11:00 99.5 102 16 122/71 94 Nasal Cannula 2.0 99.5 Labs Lab Laboratory Tests Test 11/08/16 05:30 White Blood Count 15.5x10^3/uL (4.0-11.0) Red Blood Count 2.99x10^6/uL (4.30-5.70) Hemoglobin 9.2g/dL (13.0-17.5) Hematocrit 26.2% (39.0-53.0) Mean Corpuscular Volume 87fL (79-100) Mean Corpuscular Hemoglobin 31pg (25-35) Mean Corpuscular Hemoglobin Concent 35g/dL (31-37) Red Cell Distribution Width 11.9% (11.5-14.5) Platelet Count 204x10^3/uL (140-400) Neutrophils (%) (Auto) 81% (31-73) Lymphocytes (%) (Auto) 8% (24-48) Monocytes (%) (Auto) 9% (0-9) Eosinophils (%) (Auto) 2% (0-3) Basophils (%) (Auto) 0% (0-3) Neutrophils # (Auto) 12.5x10^3uL (1.8-7.7) Lymphocytes # (Auto) 1.2x10^3/uL (1.0-4.8) Monocytes # (Auto) 1.4x10^3/uL (0.0-1.1) Eosinophils # (Auto) 0.3x10^3/uL (0.0-0.7) Basophils # (Auto) 0.0x10^3/uL (0.0-0.2) Sodium Level 135mmol/L (136-145) Potassium Level 4.4mmol/L (3.5-5.1) Chloride Level 102mmol/L (98-107) Carbon Dioxide Level 29mmol/L (21-32) Anion Gap 4 (6-14) Blood Urea Nitrogen 37mg/dL (8-26) Creatinine 5.9mg/dL (0.7-1.3) Estimated GFR (Cockcroft-Gault) 11.7 Glucose Level 105mg/dL (70-99) Calcium Level 7.8mg/dL (8.5-10.1) Objective Assessment Fever Leukocytosis ARF necessitating hemodialysis Post-procedure left perinephric hematoma s/p renal arteriogram with embolization s/p left renal biopsy, 11/04 HTN Plan Plan of Care Zosyn and one time dose vanc per Dr. Tate Uriostegui f/u am labs and cultures Thank you Attending Co-Sign The patient was seen and interviewed as well as examined at the bedside. The chart was reviewed. The case was discussed. Agree with the plan of care. NANCY QUEVEDO APRN Nov 08, 2016 11:49 SANFORD URIOSTEGUI MD Nov 08, 2016 17:03
[2016-11-08 15:00] VITALS: BP 113/63
[2016-11-08 19:50] VITALS: BP 121/74
[2016-11-08 23:40] VITALS: BP 124/71
--- NOTE | 2016-11-09 01:57 | CONS ---
DATE OF CONSULTATION: 11/07/2016 REQUESTING PHYSICIAN: Dr. Arzola. REASON FOR CONSULTATION: Fever with renal failure. HISTORY OF PRESENT ILLNESS: This patient is a 25-year-old descent male from [facility] who speaks little Wolof. According to the medical record, he has no significant medical history. He presented with bilateral leg swelling. He was hypertensive, in acute renal failure with the creatinine of 5.8, BUN 51 and potassium 5.3. Urinalysis was positive for protein. Renal ultrasound was unremarkable. He underwent a CT-guided biopsy of the left kidney on the complicated by a postprocedure hematoma, status post embolization. His renal function worsen necessitating hemodialysis. Over the past few days, he has been running fevers as high as 103.2. Hence ID was consulted and started Zosyn and ordered an one time dose of vancomycin. PAST MEDICAL HISTORY: Hypertension. PAST SURGICAL HISTORY: No significant past surgical history. FAMILY HISTORY: Unknown. SOCIAL HISTORY: Nonsmoker. ALLERGIES: No known drug allergies. MEDICATIONS: Reviewed on SEP. REVIEW OF SYSTEMS: The patient denies nausea, vomiting or abdominal pain. He is having some back pain. Denies chills. Denies cough or shortness of air. Further review of systems are limited due to language barrier. I attempted to use the producer assistant line, but was unsuccessful. PHYSICAL EXAMINATION: GENERAL: male, propped up in bed, in no apparent distress. VITAL SIGNS: Temperature is 99.5, T-max 102.0, blood pressure 122/71, heart rate 102, respiratory rate 16, pulse oximetry is on 2 liters nasal cannula, weight is 151 pounds. HEENT: Pupils equally round, reactive. Normal conjunctivae. Oral mucosa is pink and moist. NECK: Supple. LUNGS: Clear to auscultation. HEART: Normal S1 and S2. ABDOMEN: Bowel sounds are present, soft, nontender. BACK: CVA tenderness to light palpation on the left. EXTREMITIES: No gross edema or cyanosis. SKIN: Without rash. Warm to touch. NEUROLOGIC: Alert and follows simple commands. LINES: HDC. Clean. LABORATORY DATA: Today, WBC 15.5 from 20,000 on 11/06/2016, hemoglobin 9.2, platelet count 204,000. Creatinine 5.9, BUN 37, sodium 135, potassium 4.4. Lactic acid 0.8, albumin 2.0. Total bilirubin 0.3, AST 11, ALT 15. Urinalysis unremarkable for infection. Blood cultures negative so far. Recent chest x-ray showed small left pleural effusion associated with left lower lobe parenchymal density. Trace right pleural effusion. Abdomen/pelvis CT reviewed. IMPRESSION: 1. Fever. 2. Leukocytosis. 3. Acute renal failure necessitating hemodialysis. 4. Postprocedure left perinephric hematoma, status post renal arteriogram with embolization. 5. Status post left renal biopsy on 11/04/2016. 6. Hypertension. PLAN: One-time dose of vancomycin and start Zosyn. I will follow up on morning laboratory values and cultures. Supportive care. Thank you, Dr. Arzola for asking us to participate in this patient's care. Should you have further questions or concerns, please call. The patient is seen and examined and plan of care implemented by Dr. Ruddy Uriostegui. RUDDY URIOSTEGUI MD DR: LATASHA/leanna JOB#: [id number] / [id number] ESSIE
[2016-11-09 03:59] VITALS: BP 125/79
[2016-11-09] MEDS: PIPERACILLIN/TAZOBACTAM 2.25 GM in IV NORMAL SALINE 50ML 50 ML IV SCH ×3 (06:26→21:58)
[2016-11-09] MEDS: HEPARIN PF for SUB-Q USE 5,000 UNIT/0.5 ML VIAL. SQ SCH ×3 (06:31→22:04)
[2016-11-09 06:34] LABS: RED BLOOD COUNT 3.12 x10^6/uL (4.30-5.70); WHITE BLOOD COUNT 10.5 x10^3/uL (4.0-11.0)
[2016-11-09 06:35] LABS: BASO % 0 % (0-3); EOS % 5 % (0-3); HEMATOCRIT 26.9 % (39.0-53.0); HEMOGLOBIN 9.7 g/dL (13.0-17.5); LYMPH # 1.3 x10^3/uL (1.0-4.8); LYMPH % 13 % (24-48); MEAN CORPUSCULAR HEMOGLOBIN 31 pg (25-35); MEAN CORPUSCULAR HGB CONC 36 g/dL (31-37); MEAN CORPUSCULAR VOLUME 86 fL (79-100); MONO % 11 % (0-9); NEUT % 71 % (31-73); PLATELET COUNT 245 x10^3/uL (140-400); RED CELL DISTRIBUTION WIDTH 11.9 % (11.5-14.5)
[2016-11-09 06:39] LABS: CALCIUM 7.4 mg/dL (8.5-10.1); CREATININE 5.3 mg/dL (0.7-1.3); GFR 13.3
[2016-11-09 07:00] VITALS: BP 125/83
[2016-11-09] MEDS: amLODIPine BESYLATE 10 MG TABLET PO SCH (08:32)
[2016-11-09 10:20] VITALS: BP 118/76
--- NOTE | 2016-11-09 11:48 | PDOC ---
Infectious Disease Note Subjective Subjective Feeling ok, less back pain Eating + fever Tmax 102.0 ROS ROS GEN: Denies chills, sweats CV: Denies chest pain RESP: Denies shortness of air, cough GI: Denies n/v/d Vital Sign Vital Signs Vital Signs Date Time Temp Pulse Resp B/P Pulse Ox O2 Delivery O2 Flow Rate FiO2 11/09/16 08:32 87 125/79 11/09/16 08:10 Room Air 11/09/16 07:00 99.4 18 97 99.4 11/08/16 23:30 2.0 Physical Exam PHYSICAL EXAM GENERAL: Sitting up in bed, smiling HEENT: Oral mucosa pink and moist. NECK: Supple. LUNGS: Clear to auscultation. HEART: Normal S1 and S2. ABDOMEN: Bowel sounds are present, soft, nontender. BACK: Mild CVA tenderness to light palpation on the left. EXTREMITIES: No gross edema or cyanosis. SKIN: Without rash. Warm to touch. NEUROLOGIC: Alert and follows simple commands. LINES: HDC. Clean. Labs Lab Laboratory Tests Test 11/09/16 05:05 White Blood Count 10.5x10^3/uL (4.0-11.0) Red Blood Count 3.12x10^6/uL (4.30-5.70) Hemoglobin 9.7g/dL (13.0-17.5) Hematocrit 26.9% (39.0-53.0) Mean Corpuscular Volume 86fL (79-100) Mean Corpuscular Hemoglobin 31pg (25-35) Mean Corpuscular Hemoglobin Concent 36g/dL (31-37) Red Cell Distribution Width 11.9% (11.5-14.5) Platelet Count 245x10^3/uL (140-400) Neutrophils (%) (Auto) 71% (31-73) Lymphocytes (%) (Auto) 13% (24-48) Monocytes (%) (Auto) 11% (0-9) Eosinophils (%) (Auto) 5% (0-3) Basophils (%) (Auto) 0% (0-3) Neutrophils # (Auto) 7.4x10^3uL (1.8-7.7) Lymphocytes # (Auto) 1.3x10^3/uL (1.0-4.8) Monocytes # (Auto) 1.2x10^3/uL (0.0-1.1) Eosinophils # (Auto) 0.5x10^3/uL (0.0-0.7) Basophils # (Auto) 0.0x10^3/uL (0.0-0.2) Sodium Level 137mmol/L (136-145) Potassium Level 4.0mmol/L (3.5-5.1) Chloride Level 103mmol/L (98-107) Carbon Dioxide Level 27mmol/L (21-32) Anion Gap 7 (6-14) Blood Urea Nitrogen 23mg/dL (8-26) Creatinine 5.3mg/dL (0.7-1.3) Estimated GFR (Cockcroft-Gault) 13.3 Glucose Level 108mg/dL (70-99) Calcium Level 7.4mg/dL (8.5-10.1) Micro BLOOD CULTURE Preliminary NO GROWTH AFTER 2 DAYS Objective Assessment Fever Leukocytosis ARF necessitating hemodialysis Post-procedure left perinephric hematoma s/p renal arteriogram with embolization s/p left renal biopsy, 11/04 HTN Plan Plan of Care Zosyn One time dose vanc 11/07 f/u am labs and cultures HIV screen negative Attending Co-Sign The patient was seen and interviewed as well as examined at the bedside. The chart was reviewed. The case was discussed. Agree with the plan of care. NANCY QUEVEDO APRN Nov 09, 2016 11:48 SANFORD URIOSTEGUI MD Nov 09, 2016 14:36
[2016-11-09 15:00] VITALS: BP 114/73
--- NOTE | 2016-11-09 16:19 | PDOC ---
PROGRESS NOTES Chief Complaint Chief Complaint SIRS TITUS ASSESSMENT AND PLAN: 1. TITUS: nephrotic syndrome with resultant edema; renal bx pending. on HD for now 2. Fever/SIRS: ? infectious. cultures pending. ?HIV. appreciate ID service input. started on empiric abx. 3. Hematuria: with bx 4. Accelerated HTN: on norvasc 10, controlled. History of Present Illness History of Present Illness no fever doing better Vitals Vitals Vital Signs Date Time Temp Pulse Resp B/P Pulse Ox O2 Delivery O2 Flow Rate FiO2 11/09/16 15:00 99.3 96 20 114/73 97 Room Air 99.3 11/08/16 23:30 2.0 Physical Exam General: Alert, Oriented X3, Cooperative, No acute distress, Other (temporary HD catheter to NCJ) Heart: Regular rate, No murmurs Lungs: Clear Abdomen: Normal bowel sounds, Soft, No tenderness Extremities: No clubbing Skin: No rashes, Other (dressing to L flank clean, dry, and intact without surrounding erythema or overt drainage. ) Labs LABS Laboratory Tests Test 11/09/16 05:05 White Blood Count 10.5x10^3/uL (4.0-11.0) Red Blood Count 3.12x10^6/uL (4.30-5.70) Hemoglobin 9.7g/dL (13.0-17.5) Hematocrit 26.9% (39.0-53.0) Mean Corpuscular Volume 86fL (79-100) Mean Corpuscular Hemoglobin 31pg (25-35) Mean Corpuscular Hemoglobin Concent 36g/dL (31-37) Red Cell Distribution Width 11.9% (11.5-14.5) Platelet Count 245x10^3/uL (140-400) Neutrophils (%) (Auto) 71% (31-73) Lymphocytes (%) (Auto) 13% (24-48) Monocytes (%) (Auto) 11% (0-9) Eosinophils (%) (Auto) 5% (0-3) Basophils (%) (Auto) 0% (0-3) Neutrophils # (Auto) 7.4x10^3uL (1.8-7.7) Lymphocytes # (Auto) 1.3x10^3/uL (1.0-4.8) Monocytes # (Auto) 1.2x10^3/uL (0.0-1.1) Eosinophils # (Auto) 0.5x10^3/uL (0.0-0.7) Basophils # (Auto) 0.0x10^3/uL (0.0-0.2) Sodium Level 137mmol/L (136-145) Potassium Level 4.0mmol/L (3.5-5.1) Chloride Level 103mmol/L (98-107) Carbon Dioxide Level 27mmol/L (21-32) Anion Gap 7 (6-14) Blood Urea Nitrogen 23mg/dL (8-26) Creatinine 5.3mg/dL (0.7-1.3) Estimated GFR (Cockcroft-Gault) 13.3 Glucose Level 108mg/dL (70-99) Calcium Level 7.4mg/dL (8.5-10.1) Assessment and Plan Assessmemt and Plan Problems Medical Problems: (1) Accelerated hypertension Status: Acute (2) Acute renal failure (ARF) Status: Acute (3) Peripheral edema Status: Acute (4) Proteinuria Status: Acute Problems: Comment Review of Relevant I have reviewed the following items javier (where applicable) has been applied. Labs Laboratory Tests Test 11/08/16 05:30 11/09/16 05:05 White Blood Count 15.5x10^3/uL (4.0-11.0) 10.5x10^3/uL (4.0-11.0) Red Blood Count 2.99x10^6/uL (4.30-5.70) 3.12x10^6/uL (4.30-5.70) Hemoglobin 9.2g/dL (13.0-17.5) 9.7g/dL (13.0-17.5) Hematocrit 26.2% (39.0-53.0) 26.9% (39.0-53.0) Mean Corpuscular Volume 87fL (79-100) 86fL (79-100) Mean Corpuscular Hemoglobin 31pg (25-35) 31pg (25-35) Mean Corpuscular Hemoglobin Concent 35g/dL (31-37) 36g/dL (31-37) Red Cell Distribution Width 11.9% (11.5-14.5) 11.9% (11.5-14.5) Platelet Count 204x10^3/uL (140-400) 245x10^3/uL (140-400) Neutrophils (%) (Auto) 81% (31-73) 71% (31-73) Lymphocytes (%) (Auto) 8% (24-48) 13% (24-48) Monocytes (%) (Auto) 9% (0-9) 11% (0-9) Eosinophils (%) (Auto) 2% (0-3) 5% (0-3) Basophils (%) (Auto) 0% (0-3) 0% (0-3) Neutrophils # (Auto) 12.5x10^3uL (1.8-7.7) 7.4x10^3uL (1.8-7.7) Lymphocytes # (Auto) 1.2x10^3/uL (1.0-4.8) 1.3x10^3/uL (1.0-4.8) Monocytes # (Auto) 1.4x10^3/uL (0.0-1.1) 1.2x10^3/uL (0.0-1.1) Eosinophils # (Auto) 0.3x10^3/uL (0.0-0.7) 0.5x10^3/uL (0.0-0.7) Basophils # (Auto) 0.0x10^3/uL (0.0-0.2) 0.0x10^3/uL (0.0-0.2) Sodium Level 135mmol/L (136-145) 137mmol/L (136-145) Potassium Level 4.4mmol/L (3.5-5.1) 4.0mmol/L (3.5-5.1) Chloride Level 102mmol/L (98-107) 103mmol/L (98-107) Carbon Dioxide Level 29mmol/L (21-32) 27mmol/L (21-32) Anion Gap 4 (6-14) 7 (6-14) Blood Urea Nitrogen 37mg/dL (8-26) 23mg/dL (8-26) Creatinine 5.9mg/dL (0.7-1.3) 5.3mg/dL (0.7-1.3) Estimated GFR (Cockcroft-Gault) 11.7 13.3 Glucose Level 105mg/dL (70-99) 108mg/dL (70-99) Calcium Level 7.8mg/dL (8.5-10.1) 7.4mg/dL (8.5-10.1) HIV-1 Antibody Non reactive (Non Reactive) Laboratory Tests Test 11/09/16 05:05 White Blood Count 10.5x10^3/uL (4.0-11.0) Red Blood Count 3.12x10^6/uL (4.30-5.70) Hemoglobin 9.7g/dL (13.0-17.5) Hematocrit 26.9% (39.0-53.0) Mean Corpuscular Volume 86fL (79-100) Mean Corpuscular Hemoglobin 31pg (25-35) Mean Corpuscular Hemoglobin Concent 36g/dL (31-37) Red Cell Distribution Width 11.9% (11.5-14.5) Platelet Count 245x10^3/uL (140-400) Neutrophils (%) (Auto) 71% (31-73) Lymphocytes (%) (Auto) 13% (24-48) Monocytes (%) (Auto) 11% (0-9) Eosinophils (%) (Auto) 5% (0-3) Basophils (%) (Auto) 0% (0-3) Neutrophils # (Auto) 7.4x10^3uL (1.8-7.7) Lymphocytes # (Auto) 1.3x10^3/uL (1.0-4.8) Monocytes # (Auto) 1.2x10^3/uL (0.0-1.1) Eosinophils # (Auto) 0.5x10^3/uL (0.0-0.7) Basophils # (Auto) 0.0x10^3/uL (0.0-0.2) Sodium Level 137mmol/L (136-145) Potassium Level 4.0mmol/L (3.5-5.1) Chloride Level 103mmol/L (98-107) Carbon Dioxide Level 27mmol/L (21-32) Anion Gap 7 (6-14) Blood Urea Nitrogen 23mg/dL (8-26) Creatinine 5.3mg/dL (0.7-1.3) Estimated GFR (Cockcroft-Gault) 13.3 Glucose Level 108mg/dL (70-99) Calcium Level 7.4mg/dL (8.5-10.1) Microbiology 11/06/16 Blood Culture - Preliminary, Resulted NO GROWTH AFTER 3 DAYS Medications Current Medications Labetalol HCl (Normodyne) 20 mg 1X ONCE IVP Last administered on 10/30/16 16: 21; Start 10/30/16 at 16:15; Stop 10/30/16 at 16:16; Status DC Ondansetron HCl (Zofran) 4 mg PRN Q8HRS PRN IV NAUSEA/VOMITING; Start 10/30/16 at 17:30; Stop 10/31/16 at 17:29; Status DC Acetaminophen (Tylenol) 650 mg PRN Q6HRS PRN PO FEVER Last administered on 11/08 23:47; Start 10/30/16 at 17:30 Ondansetron HCl (Zofran) 4 mg PRN Q6HRS PRN IV NAUSEA/VOMITING; Start 10/30/16 at 17:30 Hydralazine HCl (Apresoline) 10 mg PRN Q4HRS PRN IVP ELEVATED BP, SEE COMMENTS Last administered on 10/31/16 03:18; Start 10/30/16 at 17:30 Amlodipine Besylate (Norvasc) 10 mg DAILY PO Last administered on 10/30/16 18: 29; Start 10/30/16 at 18:00; Stop 10/30/16 at 23:59; Status DC Sodium Polystyrene Sulfonate (Kayexalate) 15 gm 1X ONCE PO Last administered on 10/30/16 17:34; Start 10/30/16 at 17:30; Stop 10/30/16 at 17:31; Status DC Amlodipine Besylate (Norvasc) 10 mg DAILY PO Last administered on 11/09/16 08: 32; Start 10/31/16 at 09:00 Heparin Sodium (Porcine) 5,000 unit Q8HRS SQ Last administered on 11/09/16 13: 51; Start 10/30/16 at 22:00 Sodium Bicarbonate (Sodium Bicarbonate) 1,300 mg TID PO Last administered on 21:13; Start 10/31/16 at 11:00; Stop 11/07/16 at 08:52; Status DC Furosemide (Lasix) 40 mg BID PO Last administered on 11/06/16 21:13; Start at 11:00; Stop 11/07/16 at 08:52; Status DC Heparin Sodium (Porcine) (Heparin Sodium) 10,000 unit STK-MED ONCE .ROUTE ; Start 11/01/16 at 13:02; Stop 11/01/16 at 13:03; Status DC Lidocaine/Sodium Bicarbonate 20 ml 20 ml STK-MED ONCE IJ ; Start 11/01/16 at 13: 02; Stop 11/01/16 at 13:03; Status DC Heparin Sodium/ Sodium Chloride 500 ml @ As Directed STK-MED ONCE .ROUTE ; Start 11/01/16 at 13:02; Stop 11/01/16 at 13:03; Status DC Heparin Sodium (Porcine) (Heparin Sodium) 2,500 unit 1X ONCE INT CAT Last administered on 11/01/16 13:57; Start 11/01/16 at 13:45; Stop 11/01/16 at 13:48 ; Status DC Heparin Sodium/ Sodium Chloride 60 unit 1X ONCE IV Last administered on 13:57; Start 11/01/16 at 13:45; Stop 11/01/16 at 13:48; Status DC Lidocaine/Sodium Bicarbonate (Buffered Lidocaine 1%) 3 ml 1X ONCE IJ Last administered on 11/01/16 13:47; Start 11/01/16 at 13:45; Stop 11/01/16 at 13:48 ; Status DC Lidocaine/Sodium Bicarbonate (Buffered Lidocaine 1%) 20 ml STK-MED ONCE IJ ; Start 11/04/16 at 13:31; Stop 11/04/16 at 13:32; Status DC Midazolam HCl (Versed) 5 mg STK-MED ONCE .ROUTE ; Start 11/04/16 at 13:47; Stop 11/04/16 at 13:48; Status DC Fentanyl Citrate (Fentanyl 5ml Vial) 250 mcg STK-MED ONCE .ROUTE ; Start at 13:48; Stop 11/04/16 at 13:49; Status DC Lidocaine/Sodium Bicarbonate (Buffered Lidocaine 1%) 10 ml 1X ONCE IJ Last administered on 11/04/16 14:24; Start 11/04/16 at 14:30; Stop 11/04/16 at 14:31 ; Status DC Midazolam HCl (Versed) 2 mg 1X ONCE IV Last administered on 11/04/16 14:24; Start 11/04/16 at 14:30; Stop 11/04/16 at 14:31; Status DC Fentanyl Citrate (Fentanyl 5ml Vial) 100 mcg 1X ONCE IV Last administered on 14:24; Start 11/04/16 at 14:30; Stop 11/04/16 at 14:31; Status DC Gelatin (Gelfoam Size 12-7mm) 1 each STK-MED ONCE .ROUTE ; Start 11/04/16 at 14 :30; Stop 11/04/16 at 14:31; Status DC Iohexol 100 ml 100 ml STK-MED ONCE .ROUTE ; Start 11/04/16 at 14:55; Stop at 14:56; Status DC Heparin Sodium/ Sodium Chloride 500 ml @ As Directed STK-MED ONCE .ROUTE ; Start 11/04/16 at 14:58; Stop 11/04/16 at 14:59; Status DC Fentanyl Citrate (Fentanyl 2ml Vial) 100 mcg STK-MED ONCE .ROUTE ; Start at 14:58; Stop 11/04/16 at 14:59; Status DC Midazolam HCl 2 mg 2 mg STK-MED ONCE .ROUTE ; Start 11/04/16 at 14:58; Stop at 14:59; Status DC Heparin Sodium/ Sodium Chloride 500 ml @ As Directed STK-MED ONCE .ROUTE ; Start 11/04/16 at 15:16; Stop 11/04/16 at 15:17; Status DC Iodixanol (Visipaque 320) 100 ml STK-MED ONCE .ROUTE ; Start 11/04/16 at 15:28; Stop 11/04/16 at 15:29; Status DC Heparin Sodium/ Sodium Chloride 1,000 unit 1X ONCE IART Last administered on 15:58; Start 11/04/16 at 15:45; Stop 11/04/16 at 15:51; Status DC Lidocaine/Sodium Bicarbonate (Buffered Lidocaine 1%) 2 ml 1X ONCE IJ Last administered on 11/04/16 15:58; Start 11/04/16 at 15:45; Stop 11/04/16 at 15:51 ; Status DC Midazolam HCl (Versed) 2 mg 1X ONCE IV Last administered on 11/04/16 15:59; Start 11/04/16 at 15:45; Stop 11/04/16 at 15:51; Status DC Fentanyl Citrate (Fentanyl 2ml Vial) 100 mcg 1X ONCE IV Last administered on 15:59; Start 11/04/16 at 15:45; Stop 11/04/16 at 15:51; Status DC Iodixanol (Visipaque 320) 45 ml 1X ONCE IART Last administered on 11/04/16 15 :57; Start 11/04/16 at 15:45; Stop 11/04/16 at 15:51; Status DC Info (Do NOT chart on this entry -- for MONITORING) 1 each PRN DAILY PRN MC SEE COMMENTS; Start 11/04/16 at 16:00; Stop 11/06/16 at 15:59; Status DC Oxycodone/ Acetaminophen (Percocet 7.5/ 325) 1 tab PRN Q4HRS PRN PO PAIN Last administered on 11/04/16 17:18; Start 11/04/16 at 16:30; Stop 11/04/16 at 23:47 ; Status DC Oxycodone/ Acetaminophen (Percocet 7.5/ 325) 2 tab PRN Q4HRS PRN PO PAIN Last administered on 11/06/16 22:18; Start 11/05/16 at 00:00 Morphine Sulfate 2 mg 2 mg PRN Q2HR PRN IV PAIN; Start 11/05/16 at 00:00 Sodium Chloride 1,000 ml @ 1,000 mls/hr Q1H PRN IV hypotension; Start 11/06/16 at 12:23; Stop 11/06/16 at 18:22; Status DC Albumin Human (Albuminar) 200 ml @ 200 mls/hr 1X PRN PRN IV Hypotension; Start 11/06/16 at 12:30; Stop 11/06/16 at 18:29; Status DC Acetaminophen (Tylenol) 500 mg 1X PRN PRN PO MILD PAIN / TEMP; Start 11/06/16 at 12:30; Stop 11/07/16 at 12:29; Status DC Diphenhydramine HCl (Benadryl) 25 mg 1X PRN PRN IV ITCHING; Start 11/06/16 at 12:30; Stop 11/07/16 at 12:29; Status DC Diphenhydramine HCl (Benadryl) 25 mg 1X PRN PRN IV ITCHING; Start 11/06/16 at 12:30; Stop 11/07/16 at 12:29; Status DC Labetalol HCl (Normodyne) 10 mg PRN Q1HR PRN IVP SBP > 180; Start 11/06/16 at 12:30; Stop 11/07/16 at 12:29; Status DC Clonidine HCl 0.1 mg 0.1 mg 1X PRN PRN PO SBP > 180; Start 11/06/16 at 12:30; Stop 11/07/16 at 12:29; Status DC Sodium Chloride (Iv Sodium Chloride 0.9% 1000ml Bag) 1,000 ml @ 400 mls/hr Q2H30M PRN IV PATENCY; Start 11/06/16 at 12:23; Stop 11/07/16 at 00:22; Status DC Info 1 each 1 each PRN DAILY PRN MC SEE COMMENTS; Start 11/06/16 at 12:30; Stop 11/07/16 at 08:12; Status DC Sodium Chloride (Iv Sodium Chloride 0.9% 1000ml Bag) 1,000 ml @ 1,000 mls/hr Q1H PRN IV hypotension; Start 11/07/16 at 08:09; Stop 11/07/16 at 14:08; Status DC Info (PHARMACY MONITORING -- do not chart) 1 each PRN DAILY PRN MC SEE COMMENTS ; Start 11/07/16 at 08:15; Stop 11/07/16 at 08:15; Status DC Info 1 each 1 each PRN DAILY PRN MC SEE COMMENTS; Start 11/07/16 at 08:15 Vancomycin HCl 1 gm/Sodium Chloride 250 ml @ 250 mls/hr 1X ONCE IV Last administered on 11/07/16 20:25; Start 11/07/16 at 20:00; Stop 11/07/16 at 20:59 ; Status DC Piperacillin Sod/ Tazobactam Sod 2.25 gm/Sodium Chloride 50 ml @ 100 mls/hr Q8HRS IV Last administered on 11/09/16 13:48; Start 11/07/16 at 19:30 Sodium Chloride (Iv Sodium Chloride 0.9% 1000ml Bag) 1,000 ml @ 1,000 mls/hr Q1H PRN IV hypotension; Start 11/08/16 at 07:35; Stop 11/08/16 at 13:34; Status DC Sodium Chloride (Normal Saline Flush) 10 ml 1X PRN PRN IV AP catheter pack; Start 11/08/16 at 07:45; Stop 11/09/16 at 07:44; Status DC Sodium Chloride (Normal Saline Flush) 10 ml 1X PRN PRN IV VENEER GLUE SPREADER catheter pack; Start 11/08/16 at 07:45; Stop 11/09/16 at 07:44; Status DC Info (PHARMACY MONITORING -- do not chart) 1 each PRN DAILY PRN MC SEE COMMENTS ; Start 11/08/16 at 07:45; Status Cancel Info (PHARMACY MONITORING -- do not chart) 1 each PRN DAILY PRN MC SEE COMMENTS ; Start 11/08/16 at 07:45; Status Cancel Vitals/I & O Vital Sign - Last 24 Hours 11/08/16 11/08/16 11/08/16 11/09/16 19:50 23:30 23:40 03:59 Temp 99.0 102.0 98.6 99.0 102.0 98.6 Pulse 92 105 87 Resp 22 24 20 B/P 121/74 124/71 125/79 Pulse Ox 97 96 96 O2 Delivery Room Air Nasal Cannula Room Air Room Air O2 Flow Rate 2.0 11/09/16 11/09/16 11/09/16 11/09/16 07:00 08:10 08:32 10:20 Temp 99.4 98.6 99.4 98.6 Pulse 81 87 88 Resp 18 22 B/P 125/83 125/79 118/76 Pulse Ox 97 95 O2 Delivery Room Air Room Air Room Air 11/09/16 15:00 Temp 99.3 99.3 Pulse 96 Resp 20 B/P 114/73 Pulse Ox 97 O2 Delivery Room Air Intake and Output 11/08/16 11/08/16 11/09/16 15:00 23:00 07:00 Intake Total 300 ml Output Total 350 ml Balance -50 ml [id number] FAIR MD Nov 09, 2016 16:19
[2016-11-09 19:59] VITALS: BP 128/77
[2016-11-09 23:59] VITALS: BP 121/80
[2016-11-10 03:59] VITALS: BP 126/75
[2016-11-10 05:20] LABS: BASO % 0 % (0-3); EOS % 4 % (0-3); HEMATOCRIT 24.2 % (39.0-53.0); HEMOGLOBIN 8.7 g/dL (13.0-17.5); LYMPH # 1.4 x10^3/uL (1.0-4.8); LYMPH % 14 % (24-48); MEAN CORPUSCULAR HEMOGLOBIN 31 pg (25-35); MEAN CORPUSCULAR HGB CONC 36 g/dL (31-37); MEAN CORPUSCULAR VOLUME 87 fL (79-100); MONO % 11 % (0-9); NEUT % 71 % (31-73); PLATELET COUNT 294 x10^3/uL (140-400); RED BLOOD COUNT 2.79 x10^6/uL (4.30-5.70); WHITE BLOOD COUNT 9.7 x10^3/uL (4.0-11.0)
[2016-11-10 05:34] LABS: CALCIUM 8.1 mg/dL (8.5-10.1); CREATININE 7.2 mg/dL (0.7-1.3); GFR 9.3; POTASSIUM 4.6 mmol/L (3.5-5.1)
[2016-11-10] MEDS: PIPERACILLIN/TAZOBACTAM 2.25 GM in IV NORMAL SALINE 50ML 50 ML IV SCH ×3 (06:45→22:02)
[2016-11-10] MEDS: HEPARIN PF for SUB-Q USE 5,000 UNIT/0.5 ML VIAL. SQ SCH ×3 (06:50→22:08)
[2016-11-10 07:00] VITALS: BP 124/71
[2016-11-10] MEDS: amLODIPine BESYLATE 10 MG TABLET PO SCH (08:15)
[2016-11-10 11:00] VITALS: BP 106/68
--- NOTE | 2016-11-10 11:47 | PDOC ---
PROGRESS NOTES Chief Complaint Chief Complaint SIRS TITUS ASSESSMENT AND PLAN: 1. TITUS: nephrotic syndrome with resultant edema; renal bx pending. on HD for now 2. Fever/SIRS: ? infectious. cultures pending. ?HIV. appreciate ID service input. started on empiric abx. 3. Hematuria: with bx 4. Accelerated HTN: on Norvasc 10, controlled. History of Present Illness History of Present Illness no fever doing better Vitals Vitals Vital Signs Date Time Temp Pulse Resp B/P Pulse Ox O2 Delivery O2 Flow Rate FiO2 11/10/16 11:00 98.8 78 24 106/68 97 Room Air 98.8 11/09/16 20:00 2.0 Physical Exam General: Alert, Oriented X3, Cooperative, No acute distress, Other (temporary HD catheter to TXJ) Heart: Regular rate, No murmurs Lungs: Clear Abdomen: Normal bowel sounds, Soft, No tenderness Extremities: No clubbing Skin: No rashes, Other Labs LABS Laboratory Tests Test 11/10/16 03:40 White Blood Count 9.7x10^3/uL (4.0-11.0) Red Blood Count 2.79x10^6/uL (4.30-5.70) Hemoglobin 8.7g/dL (13.0-17.5) Hematocrit 24.2% (39.0-53.0) Mean Corpuscular Volume 87fL (79-100) Mean Corpuscular Hemoglobin 31pg (25-35) Mean Corpuscular Hemoglobin Concent 36g/dL (31-37) Red Cell Distribution Width 12.0% (11.5-14.5) Platelet Count 294x10^3/uL (140-400) Neutrophils (%) (Auto) 71% (31-73) Lymphocytes (%) (Auto) 14% (24-48) Monocytes (%) (Auto) 11% (0-9) Eosinophils (%) (Auto) 4% (0-3) Basophils (%) (Auto) 0% (0-3) Neutrophils # (Auto) 6.8x10^3uL (1.8-7.7) Lymphocytes # (Auto) 1.4x10^3/uL (1.0-4.8) Monocytes # (Auto) 1.0x10^3/uL (0.0-1.1) Eosinophils # (Auto) 0.4x10^3/uL (0.0-0.7) Basophils # (Auto) 0.0x10^3/uL (0.0-0.2) Sodium Level 136mmol/L (136-145) Potassium Level 4.6mmol/L (3.5-5.1) Chloride Level 103mmol/L (98-107) Carbon Dioxide Level 25mmol/L (21-32) Anion Gap 8 (6-14) Blood Urea Nitrogen 30mg/dL (8-26) Creatinine 7.2mg/dL (0.7-1.3) Estimated GFR (Cockcroft-Gault) 9.3 Glucose Level 88mg/dL (70-99) Calcium Level 8.1mg/dL (8.5-10.1) Assessment and Plan Assessmemt and Plan Problems Medical Problems: (1) Accelerated hypertension Status: Acute (2) Acute renal failure (ARF) Status: Acute (3) Peripheral edema Status: Acute (4) Proteinuria Status: Acute Problems: Comment Review of Relevant I have reviewed the following items javier (where applicable) has been applied. Labs Laboratory Tests Test 11/09/16 05:05 11/10/16 03:40 White Blood Count 10.5x10^3/uL (4.0-11.0) 9.7x10^3/uL (4.0-11.0) Red Blood Count 3.12x10^6/uL (4.30-5.70) 2.79x10^6/uL (4.30-5.70) Hemoglobin 9.7g/dL (13.0-17.5) 8.7g/dL (13.0-17.5) Hematocrit 26.9% (39.0-53.0) 24.2% (39.0-53.0) Mean Corpuscular Volume 86fL (79-100) 87fL (79-100) Mean Corpuscular Hemoglobin 31pg (25-35) 31pg (25-35) Mean Corpuscular Hemoglobin Concent 36g/dL (31-37) 36g/dL (31-37) Red Cell Distribution Width 11.9% (11.5-14.5) 12.0% (11.5-14.5) Platelet Count 245x10^3/uL (140-400) 294x10^3/uL (140-400) Neutrophils (%) (Auto) 71% (31-73) 71% (31-73) Lymphocytes (%) (Auto) 13% (24-48) 14% (24-48) Monocytes (%) (Auto) 11% (0-9) 11% (0-9) Eosinophils (%) (Auto) 5% (0-3) 4% (0-3) Basophils (%) (Auto) 0% (0-3) 0% (0-3) Neutrophils # (Auto) 7.4x10^3uL (1.8-7.7) 6.8x10^3uL (1.8-7.7) Lymphocytes # (Auto) 1.3x10^3/uL (1.0-4.8) 1.4x10^3/uL (1.0-4.8) Monocytes # (Auto) 1.2x10^3/uL (0.0-1.1) 1.0x10^3/uL (0.0-1.1) Eosinophils # (Auto) 0.5x10^3/uL (0.0-0.7) 0.4x10^3/uL (0.0-0.7) Basophils # (Auto) 0.0x10^3/uL (0.0-0.2) 0.0x10^3/uL (0.0-0.2) Sodium Level 137mmol/L (136-145) 136mmol/L (136-145) Potassium Level 4.0mmol/L (3.5-5.1) 4.6mmol/L (3.5-5.1) Chloride Level 103mmol/L (98-107) 103mmol/L (98-107) Carbon Dioxide Level 27mmol/L (21-32) 25mmol/L (21-32) Anion Gap 7 (6-14) 8 (6-14) Blood Urea Nitrogen 23mg/dL (8-26) 30mg/dL (8-26) Creatinine 5.3mg/dL (0.7-1.3) 7.2mg/dL (0.7-1.3) Estimated GFR (Cockcroft-Gault) 13.3 9.3 Glucose Level 108mg/dL (70-99) 88mg/dL (70-99) Calcium Level 7.4mg/dL (8.5-10.1) 8.1mg/dL (8.5-10.1) Laboratory Tests Test 11/10/16 03:40 White Blood Count 9.7x10^3/uL (4.0-11.0) Red Blood Count 2.79x10^6/uL (4.30-5.70) Hemoglobin 8.7g/dL (13.0-17.5) Hematocrit 24.2% (39.0-53.0) Mean Corpuscular Volume 87fL (79-100) Mean Corpuscular Hemoglobin 31pg (25-35) Mean Corpuscular Hemoglobin Concent 36g/dL (31-37) Red Cell Distribution Width 12.0% (11.5-14.5) Platelet Count 294x10^3/uL (140-400) Neutrophils (%) (Auto) 71% (31-73) Lymphocytes (%) (Auto) 14% (24-48) Monocytes (%) (Auto) 11% (0-9) Eosinophils (%) (Auto) 4% (0-3) Basophils (%) (Auto) 0% (0-3) Neutrophils # (Auto) 6.8x10^3uL (1.8-7.7) Lymphocytes # (Auto) 1.4x10^3/uL (1.0-4.8) Monocytes # (Auto) 1.0x10^3/uL (0.0-1.1) Eosinophils # (Auto) 0.4x10^3/uL (0.0-0.7) Basophils # (Auto) 0.0x10^3/uL (0.0-0.2) Sodium Level 136mmol/L (136-145) Potassium Level 4.6mmol/L (3.5-5.1) Chloride Level 103mmol/L (98-107) Carbon Dioxide Level 25mmol/L (21-32) Anion Gap 8 (6-14) Blood Urea Nitrogen 30mg/dL (8-26) Creatinine 7.2mg/dL (0.7-1.3) Estimated GFR (Cockcroft-Gault) 9.3 Glucose Level 88mg/dL (70-99) Calcium Level 8.1mg/dL (8.5-10.1) Microbiology 11/06/16 Blood Culture - Preliminary, Resulted NO GROWTH AFTER 3 DAYS Medications Current Medications Labetalol HCl (Normodyne) 20 mg 1X ONCE IVP Last administered on 10/30/16 16: 21; Start 10/30/16 at 16:15; Stop 10/30/16 at 16:16; Status DC Ondansetron HCl (Zofran) 4 mg PRN Q8HRS PRN IV NAUSEA/VOMITING; Start 10/30/16 at 17:30; Stop 10/31/16 at 17:29; Status DC Acetaminophen (Tylenol) 650 mg PRN Q6HRS PRN PO FEVER Last administered on 11/08 23:47; Start 10/30/16 at 17:30 Ondansetron HCl (Zofran) 4 mg PRN Q6HRS PRN IV NAUSEA/VOMITING; Start 10/30/16 at 17:30 Hydralazine HCl (Apresoline) 10 mg PRN Q4HRS PRN IVP ELEVATED BP, SEE COMMENTS Last administered on 10/31/16 03:18; Start 10/30/16 at 17:30 Amlodipine Besylate (Norvasc) 10 mg DAILY PO Last administered on 10/30/16 18: 29; Start 10/30/16 at 18:00; Stop 10/30/16 at 23:59; Status DC Sodium Polystyrene Sulfonate (Kayexalate) 15 gm 1X ONCE PO Last administered on 10/30/16 17:34; Start 10/30/16 at 17:30; Stop 10/30/16 at 17:31; Status DC Amlodipine Besylate (Norvasc) 10 mg DAILY PO Last administered on 11/10/16 08: 15; Start 10/31/16 at 09:00 Heparin Sodium (Porcine) 5,000 unit Q8HRS SQ Last administered on 11/10/16 06: 50; Start 10/30/16 at 22:00 Sodium Bicarbonate (Sodium Bicarbonate) 1,300 mg TID PO Last administered on 21:13; Start 10/31/16 at 11:00; Stop 11/07/16 at 08:52; Status DC Furosemide (Lasix) 40 mg BID PO Last administered on 11/06/16 21:13; Start at 11:00; Stop 11/07/16 at 08:52; Status DC Heparin Sodium (Porcine) (Heparin Sodium) 10,000 unit STK-MED ONCE .ROUTE ; Start 11/01/16 at 13:02; Stop 11/01/16 at 13:03; Status DC Lidocaine/Sodium Bicarbonate 20 ml 20 ml STK-MED ONCE IJ ; Start 11/01/16 at 13: 02; Stop 11/01/16 at 13:03; Status DC Heparin Sodium/ Sodium Chloride 500 ml @ As Directed STK-MED ONCE .ROUTE ; Start 11/01/16 at 13:02; Stop 11/01/16 at 13:03; Status DC Heparin Sodium (Porcine) (Heparin Sodium) 2,500 unit 1X ONCE INT CAT Last administered on 11/01/16 13:57; Start 11/01/16 at 13:45; Stop 11/01/16 at 13:48 ; Status DC Heparin Sodium/ Sodium Chloride 60 unit 1X ONCE IV Last administered on 13:57; Start 11/01/16 at 13:45; Stop 11/01/16 at 13:48; Status DC Lidocaine/Sodium Bicarbonate (Buffered Lidocaine 1%) 3 ml 1X ONCE IJ Last administered on 11/01/16 13:47; Start 11/01/16 at 13:45; Stop 11/01/16 at 13:48 ; Status DC Lidocaine/Sodium Bicarbonate (Buffered Lidocaine 1%) 20 ml STK-MED ONCE IJ ; Start 11/04/16 at 13:31; Stop 11/04/16 at 13:32; Status DC Midazolam HCl (Versed) 5 mg STK-MED ONCE .ROUTE ; Start 11/04/16 at 13:47; Stop 11/04/16 at 13:48; Status DC Fentanyl Citrate (Fentanyl 5ml Vial) 250 mcg STK-MED ONCE .ROUTE ; Start at 13:48; Stop 11/04/16 at 13:49; Status DC Lidocaine/Sodium Bicarbonate (Buffered Lidocaine 1%) 10 ml 1X ONCE IJ Last administered on 11/04/16 14:24; Start 11/04/16 at 14:30; Stop 11/04/16 at 14:31 ; Status DC Midazolam HCl (Versed) 2 mg 1X ONCE IV Last administered on 11/04/16 14:24; Start 11/04/16 at 14:30; Stop 11/04/16 at 14:31; Status DC Fentanyl Citrate (Fentanyl 5ml Vial) 100 mcg 1X ONCE IV Last administered on 14:24; Start 11/04/16 at 14:30; Stop 11/04/16 at 14:31; Status DC Gelatin (Gelfoam Size 12-7mm) 1 each STK-MED ONCE .ROUTE ; Start 11/04/16 at 14 :30; Stop 11/04/16 at 14:31; Status DC Iohexol 100 ml 100 ml STK-MED ONCE .ROUTE ; Start 11/04/16 at 14:55; Stop at 14:56; Status DC Heparin Sodium/ Sodium Chloride 500 ml @ As Directed STK-MED ONCE .ROUTE ; Start 11/04/16 at 14:58; Stop 11/04/16 at 14:59; Status DC Fentanyl Citrate (Fentanyl 2ml Vial) 100 mcg STK-MED ONCE .ROUTE ; Start at 14:58; Stop 11/04/16 at 14:59; Status DC Midazolam HCl 2 mg 2 mg STK-MED ONCE .ROUTE ; Start 11/04/16 at 14:58; Stop at 14:59; Status DC Heparin Sodium/ Sodium Chloride 500 ml @ As Directed STK-MED ONCE .ROUTE ; Start 11/04/16 at 15:16; Stop 11/04/16 at 15:17; Status DC Iodixanol (Visipaque 320) 100 ml STK-MED ONCE .ROUTE ; Start 11/04/16 at 15:28; Stop 11/04/16 at 15:29; Status DC Heparin Sodium/ Sodium Chloride 1,000 unit 1X ONCE IART Last administered on 15:58; Start 11/04/16 at 15:45; Stop 11/04/16 at 15:51; Status DC Lidocaine/Sodium Bicarbonate (Buffered Lidocaine 1%) 2 ml 1X ONCE IJ Last administered on 11/04/16 15:58; Start 11/04/16 at 15:45; Stop 11/04/16 at 15:51 ; Status DC Midazolam HCl (Versed) 2 mg 1X ONCE IV Last administered on 11/04/16 15:59; Start 11/04/16 at 15:45; Stop 11/04/16 at 15:51; Status DC Fentanyl Citrate (Fentanyl 2ml Vial) 100 mcg 1X ONCE IV Last administered on 15:59; Start 11/04/16 at 15:45; Stop 11/04/16 at 15:51; Status DC Iodixanol (Visipaque 320) 45 ml 1X ONCE IART Last administered on 11/04/16 15 :57; Start 11/04/16 at 15:45; Stop 11/04/16 at 15:51; Status DC Info (Do NOT chart on this entry -- for MONITORING) 1 each PRN DAILY PRN MC SEE COMMENTS; Start 11/04/16 at 16:00; Stop 11/06/16 at 15:59; Status DC Oxycodone/ Acetaminophen (Percocet 7.5/ 325) 1 tab PRN Q4HRS PRN PO PAIN Last administered on 11/04/16 17:18; Start 11/04/16 at 16:30; Stop 11/04/16 at 23:47 ; Status DC Oxycodone/ Acetaminophen (Percocet 7.5/ 325) 2 tab PRN Q4HRS PRN PO PAIN Last administered on 11/06/16 22:18; Start 11/05/16 at 00:00 Morphine Sulfate 2 mg 2 mg PRN Q2HR PRN IV PAIN; Start 11/05/16 at 00:00 Sodium Chloride 1,000 ml @ 1,000 mls/hr Q1H PRN IV hypotension; Start 11/06/16 at 12:23; Stop 11/06/16 at 18:22; Status DC Albumin Human (Albuminar) 200 ml @ 200 mls/hr 1X PRN PRN IV Hypotension; Start 11/06/16 at 12:30; Stop 11/06/16 at 18:29; Status DC Acetaminophen (Tylenol) 500 mg 1X PRN PRN PO MILD PAIN / TEMP; Start 11/06/16 at 12:30; Stop 11/07/16 at 12:29; Status DC Diphenhydramine HCl (Benadryl) 25 mg 1X PRN PRN IV ITCHING; Start 11/06/16 at 12:30; Stop 11/07/16 at 12:29; Status DC Diphenhydramine HCl (Benadryl) 25 mg 1X PRN PRN IV ITCHING; Start 11/06/16 at 12:30; Stop 11/07/16 at 12:29; Status DC Labetalol HCl (Normodyne) 10 mg PRN Q1HR PRN IVP SBP > 180; Start 11/06/16 at 12:30; Stop 11/07/16 at 12:29; Status DC Clonidine HCl 0.1 mg 0.1 mg 1X PRN PRN PO SBP > 180; Start 11/06/16 at 12:30; Stop 11/07/16 at 12:29; Status DC Sodium Chloride (Iv Sodium Chloride 0.9% 1000ml Bag) 1,000 ml @ 400 mls/hr Q2H30M PRN IV PATENCY; Start 11/06/16 at 12:23; Stop 11/07/16 at 00:22; Status DC Info 1 each 1 each PRN DAILY PRN MC SEE COMMENTS; Start 11/06/16 at 12:30; Stop 11/07/16 at 08:12; Status DC Sodium Chloride (Iv Sodium Chloride 0.9% 1000ml Bag) 1,000 ml @ 1,000 mls/hr Q1H PRN IV hypotension; Start 11/07/16 at 08:09; Stop 11/07/16 at 14:08; Status DC Info (PHARMACY MONITORING -- do not chart) 1 each PRN DAILY PRN MC SEE COMMENTS ; Start 11/07/16 at 08:15; Stop 11/07/16 at 08:15; Status DC Info 1 each 1 each PRN DAILY PRN MC SEE COMMENTS; Start 11/07/16 at 08:15 Vancomycin HCl 1 gm/Sodium Chloride 250 ml @ 250 mls/hr 1X ONCE IV Last administered on 11/07/16t 20:25; Start 11/07/16 at 20:00; Stop 11/07/16 at 20:59 ; Status DC Piperacillin Sod/ Tazobactam Sod 2.25 gm/Sodium Chloride 50 ml @ 100 mls/hr Q8HRS IV Last administered on 11/10/16 06:45; Start 11/07/16 at 19:30 Sodium Chloride (Iv Sodium Chloride 0.9% 1000ml Bag) 1,000 ml @ 1,000 mls/hr Q1H PRN IV hypotension; Start 11/08/16 at 07:35; Stop 11/08/16 at 13:34; Status DC Sodium Chloride (Normal Saline Flush) 10 ml 1X PRN PRN IV AP catheter pack; Start 11/08/16 at 07:45; Stop 11/09/16 at 07:44; Status DC Sodium Chloride (Normal Saline Flush) 10 ml 1X PRN PRN IV S[employer] catheter pack; Start 11/08/16 at 07:45; Stop 11/09/16 at 07:44; Status DC Info (PHARMACY MONITORING -- do not chart) 1 each PRN DAILY PRN MC SEE COMMENTS ; Start 11/08/16 at 07:45; Status Cancel Info (PHARMACY MONITORING -- do not chart) 1 each PRN DAILY PRN MC SEE COMMENTS ; Start 11/08/16 at 07:45; Status Cancel Vitals/I & O Vital Sign - Last 24 Hours 11/09/16 11/09/16 11/09/16 11/09/16 15:00 19:59 20:00 23:59 Temp 99.3 99.9 100.1 99.3 99.9 100.1 Pulse 96 89 83 Resp 20 20 18 B/P 114/73 128/77 121/80 Pulse Ox 97 95 98 O2 Delivery Room Air Room Air Room Air Room Air O2 Flow Rate 2.0 11/10/16 11/10/16 11/10/16 11/10/16 03:59 07:00 08:15 08:15 Temp 99.5 98.6 99.5 98.6 Pulse 91 68 91 Resp 18 22 B/P 126/75 124/71 126/75 Pulse Ox 95 98 O2 Delivery Room Air Room Air Room Air 11/10/16 11:00 Temp 98.8 98.8 Pulse 78 Resp 24 B/P 106/68 Pulse Ox 97 O2 Delivery Room Air Intake and Output 11/09/16 11/09/16 11/10/16 15:00 23:00 07:00 Intake Total 240 ml 180 ml 100 ml Balance 240 ml 180 ml 100 ml [id number] FAIR MD Nov 10, 2016 11:47
[2016-11-10 15:00] VITALS: BP 123/74
[2016-11-10 19:00] VITALS: BP 112/79
[2016-11-10 23:00] VITALS: BP 112/80
[2016-11-11 03:00] VITALS: BP 130/86
[2016-11-11 04:25] LABS: BASO # 0.1 x10^3/uL (0.0-0.2); BASO % 1 % (0-3); EOS % 3 % (0-3); HEMATOCRIT 27.7 % (39.0-53.0); HEMOGLOBIN 9.4 g/dL (13.0-17.5); LYMPH # 1.3 x10^3/uL (1.0-4.8); LYMPH % 12 % (24-48); MEAN CORPUSCULAR HEMOGLOBIN 30 pg (25-35); MEAN CORPUSCULAR HGB CONC 34 g/dL (31-37); MEAN CORPUSCULAR VOLUME 87 fL (79-100); MONO % 11 % (0-9); NEUT % 75 % (31-73); PLATELET COUNT 326 x10^3/uL (140-400); RED BLOOD COUNT 3.17 x10^6/uL (4.30-5.70); RED CELL DISTRIBUTION WIDTH 11.9 % (11.5-14.5); WHITE BLOOD COUNT 10.8 x10^3/uL (4.0-11.0)
[2016-11-11 05:37] LABS: CALCIUM 8.1 mg/dL (8.5-10.1); CREATININE 9.1 mg/dL (0.7-1.3); GFR 7.1; POTASSIUM 4.1 mmol/L (3.5-5.1)
[2016-11-11] MEDS: PIPERACILLIN/TAZOBACTAM 2.25 GM in IV NORMAL SALINE 50ML 50 ML IV SCH (06:02)
[2016-11-11] MEDS: HEPARIN PF for SUB-Q USE 5,000 UNIT/0.5 ML VIAL. SQ SCH ×3 (06:06→21:25)
[2016-11-11 07:00] VITALS: BP 125/81
[2016-11-11] MEDS: amLODIPine BESYLATE 10 MG TABLET PO SCH (08:11)
[2016-11-11 10:56] VITALS: BP 117/78
[2016-11-11 10:57] VITALS: BP 117/78
--- NOTE | 2016-11-11 12:08 | PDOC ---
PROGRESS NOTES Chief Complaint Chief Complaint SIRS TITUS ASSESSMENT AND PLAN: 1. TITUS: nephrotic syndrome with resultant edema; renal bx pending. on HD for now 2. Fever/SIRS: ? infectious. cultures pending. ?HIV. appreciate ID service input. started on empiric abx. 3. Hematuria: with bx 4. Accelerated HTN: on Norvasc 10, controlled. History of Present Illness History of Present Illness no fever doing better Vitals Vitals Vital Signs Date Time Temp Pulse Resp B/P Pulse Ox O2 Delivery O2 Flow Rate FiO2 11/11/16 10:57 98.3 78 18 117/78 97 Room Air 98.3 11/10/16 20:00 2.0 Physical Exam General: Alert, Oriented X3, Cooperative, No acute distress, Other (temporary HD catheter to DCJ) Heart: Regular rate, No murmurs Lungs: Clear Abdomen: Normal bowel sounds, Soft, No tenderness Extremities: No clubbing Skin: No rashes, Other Labs LABS Laboratory Tests Test 11/11/16 03:49 White Blood Count 10.8x10^3/uL (4.0-11.0) Red Blood Count 3.17x10^6/uL (4.30-5.70) Hemoglobin 9.4g/dL (13.0-17.5) Hematocrit 27.7% (39.0-53.0) Mean Corpuscular Volume 87fL (79-100) Mean Corpuscular Hemoglobin 30pg (25-35) Mean Corpuscular Hemoglobin Concent 34g/dL (31-37) Red Cell Distribution Width 11.9% (11.5-14.5) Platelet Count 326x10^3/uL (140-400) Neutrophils (%) (Auto) 75% (31-73) Lymphocytes (%) (Auto) 12% (24-48) Monocytes (%) (Auto) 11% (0-9) Eosinophils (%) (Auto) 3% (0-3) Basophils (%) (Auto) 1% (0-3) Neutrophils # (Auto) 8.0x10^3uL (1.8-7.7) Lymphocytes # (Auto) 1.3x10^3/uL (1.0-4.8) Monocytes # (Auto) 1.1x10^3/uL (0.0-1.1) Eosinophils # (Auto) 0.3x10^3/uL (0.0-0.7) Basophils # (Auto) 0.1x10^3/uL (0.0-0.2) Sodium Level 135mmol/L (136-145) Potassium Level 4.1mmol/L (3.5-5.1) Chloride Level 102mmol/L (98-107) Carbon Dioxide Level 26mmol/L (21-32) Anion Gap 7 (6-14) Blood Urea Nitrogen 38mg/dL (8-26) Creatinine 9.1mg/dL (0.7-1.3) Estimated GFR (Cockcroft-Gault) 7.1 Glucose Level 84mg/dL (70-99) Calcium Level 8.1mg/dL (8.5-10.1) Assessment and Plan Assessmemt and Plan Problems Medical Problems: (1) Accelerated hypertension Status: Acute (2) Acute renal failure (ARF) Status: Acute (3) Peripheral edema Status: Acute (4) Proteinuria Status: Acute Problems: Comment Review of Relevant I have reviewed the following items javier (where applicable) has been applied. Labs Laboratory Tests Test 11/10/16 03:40 11/11/16 03:49 White Blood Count 9.7x10^3/uL (4.0-11.0) 10.8x10^3/uL (4.0-11.0) Red Blood Count 2.79x10^6/uL (4.30-5.70) 3.17x10^6/uL (4.30-5.70) Hemoglobin 8.7g/dL (13.0-17.5) 9.4g/dL (13.0-17.5) Hematocrit 24.2% (39.0-53.0) 27.7% (39.0-53.0) Mean Corpuscular Volume 87fL (79-100) 87fL (79-100) Mean Corpuscular Hemoglobin 31pg (25-35) 30pg (25-35) Mean Corpuscular Hemoglobin Concent 36g/dL (31-37) 34g/dL (31-37) Red Cell Distribution Width 12.0% (11.5-14.5) 11.9% (11.5-14.5) Platelet Count 294x10^3/uL (140-400) 326x10^3/uL (140-400) Neutrophils (%) (Auto) 71% (31-73) 75% (31-73) Lymphocytes (%) (Auto) 14% (24-48) 12% (24-48) Monocytes (%) (Auto) 11% (0-9) 11% (0-9) Eosinophils (%) (Auto) 4% (0-3) 3% (0-3) Basophils (%) (Auto) 0% (0-3) 1% (0-3) Neutrophils # (Auto) 6.8x10^3uL (1.8-7.7) 8.0x10^3uL (1.8-7.7) Lymphocytes # (Auto) 1.4x10^3/uL (1.0-4.8) 1.3x10^3/uL (1.0-4.8) Monocytes # (Auto) 1.0x10^3/uL (0.0-1.1) 1.1x10^3/uL (0.0-1.1) Eosinophils # (Auto) 0.4x10^3/uL (0.0-0.7) 0.3x10^3/uL (0.0-0.7) Basophils # (Auto) 0.0x10^3/uL (0.0-0.2) 0.1x10^3/uL (0.0-0.2) Sodium Level 136mmol/L (136-145) 135mmol/L (136-145) Potassium Level 4.6mmol/L (3.5-5.1) 4.1mmol/L (3.5-5.1) Chloride Level 103mmol/L (98-107) 102mmol/L (98-107) Carbon Dioxide Level 25mmol/L (21-32) 26mmol/L (21-32) Anion Gap 8 (6-14) 7 (6-14) Blood Urea Nitrogen 30mg/dL (8-26) 38mg/dL (8-26) Creatinine 7.2mg/dL (0.7-1.3) 9.1mg/dL (0.7-1.3) Estimated GFR (Cockcroft-Gault) 9.3 7.1 Glucose Level 88mg/dL (70-99) 84mg/dL (70-99) Calcium Level 8.1mg/dL (8.5-10.1) 8.1mg/dL (8.5-10.1) Laboratory Tests Test 11/11/16 03:49 White Blood Count 10.8x10^3/uL (4.0-11.0) Red Blood Count 3.17x10^6/uL (4.30-5.70) Hemoglobin 9.4g/dL (13.0-17.5) Hematocrit 27.7% (39.0-53.0) Mean Corpuscular Volume 87fL (79-100) Mean Corpuscular Hemoglobin 30pg (25-35) Mean Corpuscular Hemoglobin Concent 34g/dL (31-37) Red Cell Distribution Width 11.9% (11.5-14.5) Platelet Count 326x10^3/uL (140-400) Neutrophils (%) (Auto) 75% (31-73) Lymphocytes (%) (Auto) 12% (24-48) Monocytes (%) (Auto) 11% (0-9) Eosinophils (%) (Auto) 3% (0-3) Basophils (%) (Auto) 1% (0-3) Neutrophils # (Auto) 8.0x10^3uL (1.8-7.7) Lymphocytes # (Auto) 1.3x10^3/uL (1.0-4.8) Monocytes # (Auto) 1.1x10^3/uL (0.0-1.1) Eosinophils # (Auto) 0.3x10^3/uL (0.0-0.7) Basophils # (Auto) 0.1x10^3/uL (0.0-0.2) Sodium Level 135mmol/L (136-145) Potassium Level 4.1mmol/L (3.5-5.1) Chloride Level 102mmol/L (98-107) Carbon Dioxide Level 26mmol/L (21-32) Anion Gap 7 (6-14) Blood Urea Nitrogen 38mg/dL (8-26) Creatinine 9.1mg/dL (0.7-1.3) Estimated GFR (Cockcroft-Gault) 7.1 Glucose Level 84mg/dL (70-99) Calcium Level 8.1mg/dL (8.5-10.1) Microbiology 11/06/16 Blood Culture - Preliminary, Resulted NO GROWTH AFTER 4 DAYS Medications Current Medications Labetalol HCl (Normodyne) 20 mg 1X ONCE IVP Last administered on 10/30/16 16: 21; Start 10/30/16 at 16:15; Stop 10/30/16 at 16:16; Status DC Ondansetron HCl (Zofran) 4 mg PRN Q8HRS PRN IV NAUSEA/VOMITING; Start 10/30/16 at 17:30; Stop 10/31/16 at 17:29; Status DC Acetaminophen (Tylenol) 650 mg PRN Q6HRS PRN PO FEVER Last administered on 11/08 23:47; Start 10/30/16 at 17:30 Ondansetron HCl (Zofran) 4 mg PRN Q6HRS PRN IV NAUSEA/VOMITING; Start 10/30/16 at 17:30 Hydralazine HCl (Apresoline) 10 mg PRN Q4HRS PRN IVP ELEVATED BP, SEE COMMENTS Last administered on 10/31/16 03:18; Start 10/30/16 at 17:30 Amlodipine Besylate (Norvasc) 10 mg DAILY PO Last administered on 10/30/16 18: 29; Start 10/30/16 at 18:00; Stop 10/30/16 at 23:59; Status DC Sodium Polystyrene Sulfonate (Kayexalate) 15 gm 1X ONCE PO Last administered on 10/30/16 17:34; Start 10/30/16 at 17:30; Stop 10/30/16 at 17:31; Status DC Amlodipine Besylate (Norvasc) 10 mg DAILY PO Last administered on 11/11/16 08: 11; Start 10/31/16 at 09:00 Heparin Sodium (Porcine) 5,000 unit Q8HRS SQ Last administered on 11/11/16 06: 06; Start 10/30/16 at 22:00 Sodium Bicarbonate (Sodium Bicarbonate) 1,300 mg TID PO Last administered on 21:13; Start 10/31/16 at 11:00; Stop 11/07/16 at 08:52; Status DC Furosemide (Lasix) 40 mg BID PO Last administered on 11/06/16 21:13; Start at 11:00; Stop 11/07/16 at 08:52; Status DC Heparin Sodium (Porcine) (Heparin Sodium) 10,000 unit STK-MED ONCE .ROUTE ; Start 11/01/16 at 13:02; Stop 11/01/16 at 13:03; Status DC Lidocaine/Sodium Bicarbonate 20 ml 20 ml STK-MED ONCE IJ ; Start 11/01/16 at 13: 02; Stop 11/01/16 at 13:03; Status DC Heparin Sodium/ Sodium Chloride 500 ml @ As Directed STK-MED ONCE .ROUTE ; Start 11/01/16 at 13:02; Stop 11/01/16 at 13:03; Status DC Heparin Sodium (Porcine) (Heparin Sodium) 2,500 unit 1X ONCE INT CAT Last administered on 11/01/16 13:57; Start 11/01/16 at 13:45; Stop 11/01/16 at 13:48 ; Status DC Heparin Sodium/ Sodium Chloride 60 unit 1X ONCE IV Last administered on 13:57; Start 11/01/16 at 13:45; Stop 11/01/16 at 13:48; Status DC Lidocaine/Sodium Bicarbonate (Buffered Lidocaine 1%) 3 ml 1X ONCE IJ Last administered on 11/01/16 13:47; Start 11/01/16 at 13:45; Stop 11/01/16 at 13:48 ; Status DC Lidocaine/Sodium Bicarbonate (Buffered Lidocaine 1%) 20 ml STK-MED ONCE IJ ; Start 11/04/16 at 13:31; Stop 11/04/16 at 13:32; Status DC Midazolam HCl (Versed) 5 mg STK-MED ONCE .ROUTE ; Start 11/04/16 at 13:47; Stop 11/04/16 at 13:48; Status DC Fentanyl Citrate (Fentanyl 5ml Vial) 250 mcg STK-MED ONCE .ROUTE ; Start at 13:48; Stop 11/04/16 at 13:49; Status DC Lidocaine/Sodium Bicarbonate (Buffered Lidocaine 1%) 10 ml 1X ONCE IJ Last administered on 11/04/16 14:24; Start 11/04/16 at 14:30; Stop 11/04/16 at 14:31 ; Status DC Midazolam HCl (Versed) 2 mg 1X ONCE IV Last administered on 11/04/16 14:24; Start 11/04/16 at 14:30; Stop 11/04/16 at 14:31; Status DC Fentanyl Citrate (Fentanyl 5ml Vial) 100 mcg 1X ONCE IV Last administered on 14:24; Start 11/04/16 at 14:30; Stop 11/04/16 at 14:31; Status DC Gelatin (Gelfoam Size 12-7mm) 1 each STK-MED ONCE .ROUTE ; Start 11/04/16 at 14 :30; Stop 11/04/16 at 14:31; Status DC Iohexol 100 ml 100 ml STK-MED ONCE .ROUTE ; Start 11/04/16 at 14:55; Stop at 14:56; Status DC Heparin Sodium/ Sodium Chloride 500 ml @ As Directed STK-MED ONCE .ROUTE ; Start 11/04/16 at 14:58; Stop 11/04/16 at 14:59; Status DC Fentanyl Citrate (Fentanyl 2ml Vial) 100 mcg STK-MED ONCE .ROUTE ; Start at 14:58; Stop 11/04/16 at 14:59; Status DC Midazolam HCl 2 mg 2 mg STK-MED ONCE .ROUTE ; Start 11/04/16 at 14:58; Stop at 14:59; Status DC Heparin Sodium/ Sodium Chloride 500 ml @ As Directed STK-MED ONCE .ROUTE ; Start 11/04/16 at 15:16; Stop 11/04/16 at 15:17; Status DC Iodixanol (Visipaque 320) 100 ml STK-MED ONCE .ROUTE ; Start 11/04/16 at 15:28; Stop 11/04/16 at 15:29; Status DC Heparin Sodium/ Sodium Chloride 1,000 unit 1X ONCE IART Last administered on 15:58; Start 11/04/16 at 15:45; Stop 11/04/16 at 15:51; Status DC Lidocaine/Sodium Bicarbonate (Buffered Lidocaine 1%) 2 ml 1X ONCE IJ Last administered on 11/04/16 15:58; Start 11/04/16 at 15:45; Stop 11/04/16 at 15:51 ; Status DC Midazolam HCl (Versed) 2 mg 1X ONCE IV Last administered on 11/04/16 15:59; Start 11/04/16 at 15:45; Stop 11/04/16 at 15:51; Status DC Fentanyl Citrate (Fentanyl 2ml Vial) 100 mcg 1X ONCE IV Last administered on 15:59; Start 11/04/16 at 15:45; Stop 11/04/16 at 15:51; Status DC Iodixanol (Visipaque 320) 45 ml 1X ONCE IART Last administered on 11/04/16 15 :57; Start 11/04/16 at 15:45; Stop 11/04/16 at 15:51; Status DC Info (Do NOT chart on this entry -- for MONITORING) 1 each PRN DAILY PRN MC SEE COMMENTS; Start 11/04/16 at 16:00; Stop 11/06/16 at 15:59; Status DC Oxycodone/ Acetaminophen (Percocet 7.5/ 325) 1 tab PRN Q4HRS PRN PO PAIN Last administered on 11/04/16 17:18; Start 11/04/16 at 16:30; Stop 11/04/16 at 23:47 ; Status DC Oxycodone/ Acetaminophen (Percocet 7.5/ 325) 2 tab PRN Q4HRS PRN PO PAIN Last administered on 11/06/16 22:18; Start 11/05/16 at 00:00 Morphine Sulfate 2 mg 2 mg PRN Q2HR PRN IV PAIN; Start 11/05/16 at 00:00 Sodium Chloride 1,000 ml @ 1,000 mls/hr Q1H PRN IV hypotension; Start 11/06/16 at 12:23; Stop 11/06/16 at 18:22; Status DC Albumin Human (Albuminar) 200 ml @ 200 mls/hr 1X PRN PRN IV Hypotension; Start 11/06/16 at 12:30; Stop 11/06/16 at 18:29; Status DC Acetaminophen (Tylenol) 500 mg 1X PRN PRN PO MILD PAIN / TEMP; Start 11/06/16 at 12:30; Stop 11/07/16 at 12:29; Status DC Diphenhydramine HCl (Benadryl) 25 mg 1X PRN PRN IV ITCHING; Start 11/06/16 at 12:30; Stop 11/07/16 at 12:29; Status DC Diphenhydramine HCl (Benadryl) 25 mg 1X PRN PRN IV ITCHING; Start 11/06/16 at 12:30; Stop 11/07/16 at 12:29; Status DC Labetalol HCl (Normodyne) 10 mg PRN Q1HR PRN IVP SBP > 180; Start 11/06/16 at 12:30; Stop 11/07/16 at 12:29; Status DC Clonidine HCl 0.1 mg 0.1 mg 1X PRN PRN PO SBP > 180; Start 11/06/16 at 12:30; Stop 11/07/16 at 12:29; Status DC Sodium Chloride (Iv Sodium Chloride 0.9% 1000ml Bag) 1,000 ml @ 400 mls/hr Q2H30M PRN IV PATENCY; Start 11/06/16 at 12:23; Stop 11/07/16 at 00:22; Status DC Info 1 each 1 each PRN DAILY PRN MC SEE COMMENTS; Start 11/06/16 at 12:30; Stop 11/07/16 at 08:12; Status DC Sodium Chloride (Iv Sodium Chloride 0.9% 1000ml Bag) 1,000 ml @ 1,000 mls/hr Q1H PRN IV hypotension; Start 11/07/16 at 08:09; Stop 11/07/16 at 14:08; Status DC Info (PHARMACY MONITORING -- do not chart) 1 each PRN DAILY PRN MC SEE COMMENTS ; Start 11/07/16 at 08:15; Stop 11/07/16 at 08:15; Status DC Info 1 each 1 each PRN DAILY PRN MC SEE COMMENTS; Start 11/07/16 at 08:15 Vancomycin HCl 1 gm/Sodium Chloride 250 ml @ 250 mls/hr 1X ONCE IV Last administered on 11/07/16 20:25; Start 11/07/16 at 20:00; Stop 11/07/16 at 20:59 ; Status DC Piperacillin Sod/ Tazobactam Sod 2.25 gm/Sodium Chloride 50 ml @ 100 mls/hr Q8HRS IV Last administered on 11/11/16 06:02; Start 11/07/16 at 19:30; Stop 11/11/16 at 11:20; Status DC Sodium Chloride (Iv Sodium Chloride 0.9% 1000ml Bag) 1,000 ml @ 1,000 mls/hr Q1H PRN IV hypotension; Start 11/08/16 at 07:35; Stop 11/08/16 at 13:34; Status DC Sodium Chloride (Normal Saline Flush) 10 ml 1X PRN PRN IV AP catheter pack; Start 11/08/16 at 07:45; Stop 11/09/16 at 07:44; Status DC Sodium Chloride (Normal Saline Flush) 10 ml 1X PRN PRN IV [employer] catheter pack; Start 11/08/16 at 07:45; Stop 11/09/16 at 07:44; Status DC Info (PHARMACY MONITORING -- do not chart) 1 each PRN DAILY PRN MC SEE COMMENTS ; Start 11/08/16 at 07:45; Status Cancel Info (PHARMACY MONITORING -- do not chart) 1 each PRN DAILY PRN MC SEE COMMENTS ; Start 11/08/16 at 07:45; Status Cancel Vitals/I & O Vital Sign - Last 24 Hours 11/10/16 11/10/16 11/10/16 11/10/16 15:00 19:00 20:00 23:00 Temp 98.9 98.3 99.3 98.9 98.3 99.3 Pulse 98 104 105 Resp 20 16 18 B/P 123/74 112/79 112/80 Pulse Ox 96 97 97 O2 Delivery Nasal Cannula Room Air O2 Flow Rate 2.0 11/11/16 11/11/16 11/11/16 11/11/16 03:00 07:00 08:00 08:11 Temp 99.2 98.4 99.2 98.4 Pulse 92 101 101 Resp 16 18 B/P 130/86 125/81 125/81 Pulse Ox 96 94 O2 Delivery Room Air Room Air 11/11/16 10:57 Temp 98.3 98.3 Pulse 78 Resp 18 B/P 117/78 Pulse Ox 97 O2 Delivery Room Air Intake and Output 11/10/16 11/10/16 11/11/16 14:59 22:59 06:59 Intake Total 1010 ml 500 ml 50 ml Output Total 300 ml Balance 1010 ml 500 ml -250 ml EDWIGE FAIR MD November 11, 2016 12:08
--- NOTE | 2016-11-11 14:52 | PDOC ---
Dialysis Progress Note Dialysis Note Dialysis Note Seen on Hemodialysis, tolerating treatment Okay Vitals on Hemodialysis: 133/75 93 afeb General Appearance: Asleep Neck: No JVD or JVP Chest: CTA Noble Heart: S1 S2 Abdomen - Soft NTND Extremities - No Edema ESRD: Dialysis as below F 180 NR 3.5 Hrs 3 K 2.5 Ca 140 Na 30 HC03 Qb 350 + Qd 500+ Heparin 0 Units Uf 0-1 Kgs or to dry weight as tolerated May give 25-50 gms of 25% Albumin if needed to maintain Hemodynamic stability Treatment plan reviewed and discussed with coater carbon paper Vitals Vital Signs Vital Signs Date Time Temp Pulse Resp B/P Pulse Ox O2 Delivery O2 Flow Rate FiO2 11/11/16 10:57 98.3 78 18 117/78 97 Room Air 98.3 11/10/16 20:00 2.0 Labs Last Labs Laboratory Tests Test 11/10/16 03:40 11/11/16 03:49 White Blood Count 9.7x10^3/uL (4.0-11.0) 10.8x10^3/uL (4.0-11.0) Red Blood Count 2.79x10^6/uL (4.30-5.70) 3.17x10^6/uL (4.30-5.70) Hemoglobin 8.7g/dL (13.0-17.5) 9.4g/dL (13.0-17.5) Hematocrit 24.2% (39.0-53.0) 27.7% (39.0-53.0) Mean Corpuscular Volume 87fL (79-100) 87fL (79-100) Mean Corpuscular Hemoglobin 31pg (25-35) 30pg (25-35) Mean Corpuscular Hemoglobin Concent 36g/dL (31-37) 34g/dL (31-37) Red Cell Distribution Width 12.0% (11.5-14.5) 11.9% (11.5-14.5) Platelet Count 294x10^3/uL (140-400) 326x10^3/uL (140-400) Neutrophils (%) (Auto) 71% (31-73) 75% (31-73) Lymphocytes (%) (Auto) 14% (24-48) 12% (24-48) Monocytes (%) (Auto) 11% (0-9) 11% (0-9) Eosinophils (%) (Auto) 4% (0-3) 3% (0-3) Basophils (%) (Auto) 0% (0-3) 1% (0-3) Neutrophils # (Auto) 6.8x10^3uL (1.8-7.7) 8.0x10^3uL (1.8-7.7) Lymphocytes # (Auto) 1.4x10^3/uL (1.0-4.8) 1.3x10^3/uL (1.0-4.8) Monocytes # (Auto) 1.0x10^3/uL (0.0-1.1) 1.1x10^3/uL (0.0-1.1) Eosinophils # (Auto) 0.4x10^3/uL (0.0-0.7) 0.3x10^3/uL (0.0-0.7) Basophils # (Auto) 0.0x10^3/uL (0.0-0.2) 0.1x10^3/uL (0.0-0.2) Sodium Level 136mmol/L (136-145) 135mmol/L (136-145) Potassium Level 4.6mmol/L (3.5-5.1) 4.1mmol/L (3.5-5.1) Chloride Level 103mmol/L (98-107) 102mmol/L (98-107) Carbon Dioxide Level 25mmol/L (21-32) 26mmol/L (21-32) Anion Gap 8 (6-14) 7 (6-14) Blood Urea Nitrogen 30mg/dL (8-26) 38mg/dL (8-26) Creatinine 7.2mg/dL (0.7-1.3) 9.1mg/dL (0.7-1.3) Estimated GFR (Cockcroft-Gault) 9.3 7.1 Glucose Level 88mg/dL (70-99) 84mg/dL (70-99) Calcium Level 8.1mg/dL (8.5-10.1) 8.1mg/dL (8.5-10.1) Laboratory Tests Test 11/11/16 03:49 White Blood Count 10.8x10^3/uL (4.0-11.0) Red Blood Count 3.17x10^6/uL (4.30-5.70) Hemoglobin 9.4g/dL (13.0-17.5) Hematocrit 27.7% (39.0-53.0) Mean Corpuscular Volume 87fL (79-100) Mean Corpuscular Hemoglobin 30pg (25-35) Mean Corpuscular Hemoglobin Concent 34g/dL (31-37) Red Cell Distribution Width 11.9% (11.5-14.5) Platelet Count 326x10^3/uL (140-400) Neutrophils (%) (Auto) 75% (31-73) Lymphocytes (%) (Auto) 12% (24-48) Monocytes (%) (Auto) 11% (0-9) Eosinophils (%) (Auto) 3% (0-3) Basophils (%) (Auto) 1% (0-3) Neutrophils # (Auto) 8.0x10^3uL (1.8-7.7) Lymphocytes # (Auto) 1.3x10^3/uL (1.0-4.8) Monocytes # (Auto) 1.1x10^3/uL (0.0-1.1) Eosinophils # (Auto) 0.3x10^3/uL (0.0-0.7) Basophils # (Auto) 0.1x10^3/uL (0.0-0.2) Sodium Level 135mmol/L (136-145) Potassium Level 4.1mmol/L (3.5-5.1) Chloride Level 102mmol/L (98-107) Carbon Dioxide Level 26mmol/L (21-32) Anion Gap 7 (6-14) Blood Urea Nitrogen 38mg/dL (8-26) Creatinine 9.1mg/dL (0.7-1.3) Estimated GFR (Cockcroft-Gault) 7.1 Glucose Level 84mg/dL (70-99) Calcium Level 8.1mg/dL (8.5-10.1) Assessment Assessment Problems Medical Problems: (1) Accelerated hypertension Status: Acute (2) Acute renal failure (ARF) Status: Acute (3) Peripheral edema Status: Acute (4) Proteinuria Status: Acute Problems: Plan Plan of Care Problems Medical Problems: (1) Accelerated hypertension Status: Acute (2) Acute renal failure (ARF) Status: Acute (3) Peripheral edema Status: Acute (4) Proteinuria Status: Acute JORDY URIOSTEGUI MD November 11, 2016 14:52
[2016-11-11] MEDS ORDERED: IV NORMAL SALINE 1000ML BAG 1,000 ML IV PRN (15:23)
[2016-11-11] MEDS ORDERED: DIALYSIS PATIENT. MC PRN (15:30)
[2016-11-11 19:00] VITALS: BP 127/87
[2016-11-11 23:00] VITALS: BP 124/88
[2016-11-12] MEDS: HEPARIN PF for SUB-Q USE 5,000 UNIT/0.5 ML VIAL. SQ SCH ×3 (05:46→21:39)
[2016-11-12 07:00] VITALS: BP 116/76
[2016-11-12] MEDS: amLODIPine BESYLATE 10 MG TABLET PO SCH (07:43)
[2016-11-12 07:53] LABS: BASO # 0.1 x10^3/uL (0.0-0.2); BASO % 1 % (0-3); EOS % 4 % (0-3); HEMATOCRIT 25.9 % (39.0-53.0); LYMPH # 1.5 x10^3/uL (1.0-4.8); LYMPH % 16 % (24-48); MEAN CORPUSCULAR HEMOGLOBIN 31 pg (25-35); MEAN CORPUSCULAR HGB CONC 35 g/dL (31-37); MEAN CORPUSCULAR VOLUME 88 fL (79-100); MONO % 12 % (0-9); NEUT % 67 % (31-73); PLATELET COUNT 310 x10^3/uL (140-400); RED BLOOD COUNT 2.94 x10^6/uL (4.30-5.70); WHITE BLOOD COUNT 9.2 x10^3/uL (4.0-11.0)
[2016-11-12 07:58] LABS: CALCIUM 7.9 mg/dL (8.5-10.1); CREATININE 6.9 mg/dL (0.7-1.3); GFR 9.8; POTASSIUM 4.3 mmol/L (3.5-5.1)
--- NOTE | 2016-11-12 10:34 | PDOC ---
PROGRESS NOTES Chief Complaint Chief Complaint SIRS TITUS ASSESSMENT AND PLAN: 1. TITUS: nephrotic syndrome with resultant edema; renal bx pending. on HD for now, placement pending. 2. Fever/SIRS: ? infectious. ABX Stopped, ID signed off, HIV negative. 3. Hematuria: with bx 4. Accelerated HTN: on Norvasc 10, controlled. History of Present Illness History of Present Illness no fever doing better Vitals Vitals Vital Signs Date Time Temp Pulse Resp B/P Pulse Ox O2 Delivery O2 Flow Rate FiO2 11/12/16 08:00 Room Air 11/12/16 07:43 85 116/76 11/12/16 07:00 99.3 20 96 99.3 Physical Exam General: Alert, Oriented X3, Cooperative, No acute distress, Other (temporary HD catheter to RIJ) Heart: Regular rate, Normal S1, Normal S2, No murmurs Lungs: Clear Abdomen: Normal bowel sounds, Soft, No tenderness Extremities: No clubbing Skin: No rashes, Other Labs LABS Laboratory Tests Test 11/12/16 06:55 White Blood Count 9.2x10^3/uL (4.0-11.0) Red Blood Count 2.94x10^6/uL (4.30-5.70) Hemoglobin 9.0g/dL (13.0-17.5) Hematocrit 25.9% (39.0-53.0) Mean Corpuscular Volume 88fL (79-100) Mean Corpuscular Hemoglobin 31pg (25-35) Mean Corpuscular Hemoglobin Concent 35g/dL (31-37) Red Cell Distribution Width 12.0% (11.5-14.5) Platelet Count 310x10^3/uL (140-400) Neutrophils (%) (Auto) 67% (31-73) Lymphocytes (%) (Auto) 16% (24-48) Monocytes (%) (Auto) 12% (0-9) Eosinophils (%) (Auto) 4% (0-3) Basophils (%) (Auto) 1% (0-3) Neutrophils # (Auto) 6.2x10^3uL (1.8-7.7) Lymphocytes # (Auto) 1.5x10^3/uL (1.0-4.8) Monocytes # (Auto) 1.1x10^3/uL (0.0-1.1) Eosinophils # (Auto) 0.4x10^3/uL (0.0-0.7) Basophils # (Auto) 0.1x10^3/uL (0.0-0.2) Sodium Level 136mmol/L (136-145) Potassium Level 4.3mmol/L (3.5-5.1) Chloride Level 102mmol/L (98-107) Carbon Dioxide Level 28mmol/L (21-32) Anion Gap 6 (6-14) Blood Urea Nitrogen 27mg/dL (8-26) Creatinine 6.9mg/dL (0.7-1.3) Estimated GFR (Cockcroft-Gault) 9.8 Glucose Level 113mg/dL (70-99) Calcium Level 7.9mg/dL (8.5-10.1) Assessment and Plan Assessmemt and Plan Problems Medical Problems: (1) Accelerated hypertension Status: Acute (2) Acute renal failure (ARF) Status: Acute (3) Peripheral edema Status: Acute (4) Proteinuria Status: Acute Problems: Comment Review of Relevant I have reviewed the following items javier (where applicable) has been applied. Labs Laboratory Tests Test 11/11/16 03:49 11/12/16 06:55 White Blood Count 10.8x10^3/uL (4.0-11.0) 9.2x10^3/uL (4.0-11.0) Red Blood Count 3.17x10^6/uL (4.30-5.70) 2.94x10^6/uL (4.30-5.70) Hemoglobin 9.4g/dL (13.0-17.5) 9.0g/dL (13.0-17.5) Hematocrit 27.7% (39.0-53.0) 25.9% (39.0-53.0) Mean Corpuscular Volume 87fL (79-100) 88fL (79-100) Mean Corpuscular Hemoglobin 30pg (25-35) 31pg (25-35) Mean Corpuscular Hemoglobin Concent 34g/dL (31-37) 35g/dL (31-37) Red Cell Distribution Width 11.9% (11.5-14.5) 12.0% (11.5-14.5) Platelet Count 326x10^3/uL (140-400) 310x10^3/uL (140-400) Neutrophils (%) (Auto) 75% (31-73) 67% (31-73) Lymphocytes (%) (Auto) 12% (24-48) 16% (24-48) Monocytes (%) (Auto) 11% (0-9) 12% (0-9) Eosinophils (%) (Auto) 3% (0-3) 4% (0-3) Basophils (%) (Auto) 1% (0-3) 1% (0-3) Neutrophils # (Auto) 8.0x10^3uL (1.8-7.7) 6.2x10^3uL (1.8-7.7) Lymphocytes # (Auto) 1.3x10^3/uL (1.0-4.8) 1.5x10^3/uL (1.0-4.8) Monocytes # (Auto) 1.1x10^3/uL (0.0-1.1) 1.1x10^3/uL (0.0-1.1) Eosinophils # (Auto) 0.3x10^3/uL (0.0-0.7) 0.4x10^3/uL (0.0-0.7) Basophils # (Auto) 0.1x10^3/uL (0.0-0.2) 0.1x10^3/uL (0.0-0.2) Sodium Level 135mmol/L (136-145) 136mmol/L (136-145) Potassium Level 4.1mmol/L (3.5-5.1) 4.3mmol/L (3.5-5.1) Chloride Level 102mmol/L (98-107) 102mmol/L (98-107) Carbon Dioxide Level 26mmol/L (21-32) 28mmol/L (21-32) Anion Gap 7 (6-14) 6 (6-14) Blood Urea Nitrogen 38mg/dL (8-26) 27mg/dL (8-26) Creatinine 9.1mg/dL (0.7-1.3) 6.9mg/dL (0.7-1.3) Estimated GFR (Cockcroft-Gault) 7.1 9.8 Glucose Level 84mg/dL (70-99) 113mg/dL (70-99) Calcium Level 8.1mg/dL (8.5-10.1) 7.9mg/dL (8.5-10.1) Laboratory Tests Test 11/12/16 06:55 White Blood Count 9.2x10^3/uL (4.0-11.0) Red Blood Count 2.94x10^6/uL (4.30-5.70) Hemoglobin 9.0g/dL (13.0-17.5) Hematocrit 25.9% (39.0-53.0) Mean Corpuscular Volume 88fL (79-100) Mean Corpuscular Hemoglobin 31pg (25-35) Mean Corpuscular Hemoglobin Concent 35g/dL (31-37) Red Cell Distribution Width 12.0% (11.5-14.5) Platelet Count 310x10^3/uL (140-400) Neutrophils (%) (Auto) 67% (31-73) Lymphocytes (%) (Auto) 16% (24-48) Monocytes (%) (Auto) 12% (0-9) Eosinophils (%) (Auto) 4% (0-3) Basophils (%) (Auto) 1% (0-3) Neutrophils # (Auto) 6.2x10^3uL (1.8-7.7) Lymphocytes # (Auto) 1.5x10^3/uL (1.0-4.8) Monocytes # (Auto) 1.1x10^3/uL (0.0-1.1) Eosinophils # (Auto) 0.4x10^3/uL (0.0-0.7) Basophils # (Auto) 0.1x10^3/uL (0.0-0.2) Sodium Level 136mmol/L (136-145) Potassium Level 4.3mmol/L (3.5-5.1) Chloride Level 102mmol/L (98-107) Carbon Dioxide Level 28mmol/L (21-32) Anion Gap 6 (6-14) Blood Urea Nitrogen 27mg/dL (8-26) Creatinine 6.9mg/dL (0.7-1.3) Estimated GFR (Cockcroft-Gault) 9.8 Glucose Level 113mg/dL (70-99) Calcium Level 7.9mg/dL (8.5-10.1) Microbiology 11/06/16 Blood Culture - Final, Complete NO GROWTH AFTER 5 DAYS Medications Current Medications Labetalol HCl (Normodyne) 20 mg 1X ONCE IVP Last administered on 10/30/16 16: 21; Start 10/30/16 at 16:15; Stop 10/30/16 at 16:16; Status DC Ondansetron HCl (Zofran) 4 mg PRN Q8HRS PRN IV NAUSEA/VOMITING; Start 10/30/16 at 17:30; Stop 10/31/16 at 17:29; Status DC Acetaminophen (Tylenol) 650 mg PRN Q6HRS PRN PO FEVER Last administered on 11/08 23:47; Start 10/30/16 at 17:30 Ondansetron HCl (Zofran) 4 mg PRN Q6HRS PRN IV NAUSEA/VOMITING; Start 10/30/16 at 17:30 Hydralazine HCl (Apresoline) 10 mg PRN Q4HRS PRN IVP ELEVATED BP, SEE COMMENTS Last administered on 10/31/16 03:18; Start 10/30/16 at 17:30 Amlodipine Besylate (Norvasc) 10 mg DAILY PO Last administered on 10/30/16 18: 29; Start 10/30/16 at 18:00; Stop 10/30/16 at 23:59; Status DC Sodium Polystyrene Sulfonate (Kayexalate) 15 gm 1X ONCE PO Last administered on 10/30/16 17:34; Start 10/30/16 at 17:30; Stop 10/30/16 at 17:31; Status DC Amlodipine Besylate (Norvasc) 10 mg DAILY PO Last administered on 11/12/16 07: 43; Start 10/31/16 at 09:00 Heparin Sodium (Porcine) 5,000 unit Q8HRS SQ Last administered on 11/12/16 05: 46; Start 10/30/16 at 22:00 Sodium Bicarbonate (Sodium Bicarbonate) 1,300 mg TID PO Last administered on 21:13; Start 10/31/16 at 11:00; Stop 11/07/16 at 08:52; Status DC Furosemide (Lasix) 40 mg BID PO Last administered on 11/06/16 21:13; Start at 11:00; Stop 11/07/16 at 08:52; Status DC Heparin Sodium (Porcine) (Heparin Sodium) 10,000 unit STK-MED ONCE .ROUTE ; Start 11/01/16 at 13:02; Stop 11/01/16 at 13:03; Status DC Lidocaine/Sodium Bicarbonate 20 ml 20 ml STK-MED ONCE IJ ; Start 11/01/16 at 13: 02; Stop 11/01/16 at 13:03; Status DC Heparin Sodium/ Sodium Chloride 500 ml @ As Directed STK-MED ONCE .ROUTE ; Start 11/01/16 at 13:02; Stop 11/01/16 at 13:03; Status DC Heparin Sodium (Porcine) (Heparin Sodium) 2,500 unit 1X ONCE INT CAT Last administered on 11/01/16 13:57; Start 11/01/16 at 13:45; Stop 11/01/16 at 13:48 ; Status DC Heparin Sodium/ Sodium Chloride 60 unit 1X ONCE IV Last administered on 13:57; Start 11/01/16 at 13:45; Stop 11/01/16 at 13:48; Status DC Lidocaine/Sodium Bicarbonate (Buffered Lidocaine 1%) 3 ml 1X ONCE IJ Last administered on 11/01/16 13:47; Start 11/01/16 at 13:45; Stop 11/01/16 at 13:48 ; Status DC Lidocaine/Sodium Bicarbonate (Buffered Lidocaine 1%) 20 ml STK-MED ONCE IJ ; Start 11/04/16 at 13:31; Stop 11/04/16 at 13:32; Status DC Midazolam HCl (Versed) 5 mg STK-MED ONCE .ROUTE ; Start 11/04/16 at 13:47; Stop 11/04/16 at 13:48; Status DC Fentanyl Citrate (Fentanyl 5ml Vial) 250 mcg STK-MED ONCE .ROUTE ; Start at 13:48; Stop 11/04/16 at 13:49; Status DC Lidocaine/Sodium Bicarbonate (Buffered Lidocaine 1%) 10 ml 1X ONCE IJ Last administered on 11/04/16 14:24; Start 11/04/16 at 14:30; Stop 11/04/16 at 14:31 ; Status DC Midazolam HCl (Versed) 2 mg 1X ONCE IV Last administered on 11/04/16 14:24; Start 11/04/16 at 14:30; Stop 11/04/16 at 14:31; Status DC Fentanyl Citrate (Fentanyl 5ml Vial) 100 mcg 1X ONCE IV Last administered on 14:24; Start 11/04/16 at 14:30; Stop 11/04/16 at 14:31; Status DC Gelatin (Gelfoam Size 12-7mm) 1 each STK-MED ONCE .ROUTE ; Start 11/04/16 at 14 :30; Stop 11/04/16 at 14:31; Status DC Iohexol 100 ml 100 ml STK-MED ONCE .ROUTE ; Start 11/04/16 at 14:55; Stop at 14:56; Status DC Heparin Sodium/ Sodium Chloride 500 ml @ As Directed STK-MED ONCE .ROUTE ; Start 11/04/16 at 14:58; Stop 11/04/16 at 14:59; Status DC Fentanyl Citrate (Fentanyl 2ml Vial) 100 mcg STK-MED ONCE .ROUTE ; Start at 14:58; Stop 11/04/16 at 14:59; Status DC Midazolam HCl 2 mg 2 mg STK-MED ONCE .ROUTE ; Start 11/04/16 at 14:58; Stop at 14:59; Status DC Heparin Sodium/ Sodium Chloride 500 ml @ As Directed STK-MED ONCE .ROUTE ; Start 11/04/16 at 15:16; Stop 11/04/16 at 15:17; Status DC Iodixanol (Visipaque 320) 100 ml STK-MED ONCE .ROUTE ; Start 11/04/16 at 15:28; Stop 11/04/16 at 15:29; Status DC Heparin Sodium/ Sodium Chloride 1,000 unit 1X ONCE IART Last administered on 15:58; Start 11/04/16 at 15:45; Stop 11/04/16 at 15:51; Status DC Lidocaine/Sodium Bicarbonate (Buffered Lidocaine 1%) 2 ml 1X ONCE IJ Last administered on 11/04/16 15:58; Start 11/04/16 at 15:45; Stop 11/04/16 at 15:51 ; Status DC Midazolam HCl (Versed) 2 mg 1X ONCE IV Last administered on 11/04/16 15:59; Start 11/04/16 at 15:45; Stop 11/04/16 at 15:51; Status DC Fentanyl Citrate (Fentanyl 2ml Vial) 100 mcg 1X ONCE IV Last administered on 15:59; Start 11/04/16 at 15:45; Stop 11/04/16 at 15:51; Status DC Iodixanol (Visipaque 320) 45 ml 1X ONCE IART Last administered on 11/04/16 15 :57; Start 11/04/16 at 15:45; Stop 11/04/16 at 15:51; Status DC Info (Do NOT chart on this entry -- for MONITORING) 1 each PRN DAILY PRN MC SEE COMMENTS; Start 11/04/16 at 16:00; Stop 11/06/16 at 15:59; Status DC Oxycodone/ Acetaminophen (Percocet 7.5/ 325) 1 tab PRN Q4HRS PRN PO PAIN Last administered on 11/04/16 17:18; Start 11/04/16 at 16:30; Stop 11/04/16 at 23:47 ; Status DC Oxycodone/ Acetaminophen (Percocet 7.5/ 325) 2 tab PRN Q4HRS PRN PO PAIN Last administered on 11/06/16 22:18; Start 11/05/16 at 00:00 Morphine Sulfate 2 mg 2 mg PRN Q2HR PRN IV PAIN; Start 11/05/16 at 00:00 Sodium Chloride 1,000 ml @ 1,000 mls/hr Q1H PRN IV hypotension; Start 11/06/16 at 12:23; Stop 11/06/16 at 18:22; Status DC Albumin Human (Albuminar) 200 ml @ 200 mls/hr 1X PRN PRN IV Hypotension; Start 11/06/16 at 12:30; Stop 11/06/16 at 18:29; Status DC Acetaminophen (Tylenol) 500 mg 1X PRN PRN PO MILD PAIN / TEMP; Start 11/06/16 at 12:30; Stop 11/07/16 at 12:29; Status DC Diphenhydramine HCl (Benadryl) 25 mg 1X PRN PRN IV ITCHING; Start 11/06/16 at 12:30; Stop 11/07/16 at 12:29; Status DC Diphenhydramine HCl (Benadryl) 25 mg 1X PRN PRN IV ITCHING; Start 11/06/16 at 12:30; Stop 11/07/16 at 12:29; Status DC Labetalol HCl (Normodyne) 10 mg PRN Q1HR PRN IVP SBP > 180; Start 11/06/16 at 12:30; Stop 11/07/16 at 12:29; Status DC Clonidine HCl 0.1 mg 0.1 mg 1X PRN PRN PO SBP > 180; Start 11/06/16 at 12:30; Stop 11/07/16 at 12:29; Status DC Sodium Chloride (Iv Sodium Chloride 0.9% 1000ml Bag) 1,000 ml @ 400 mls/hr Q2H30M PRN IV PATENCY; Start 11/06/16 at 12:23; Stop 11/07/16 at 00:22; Status DC Info 1 each 1 each PRN DAILY PRN MC SEE COMMENTS; Start 11/06/16 at 12:30; Stop 11/07/16 at 08:12; Status DC Sodium Chloride (Iv Sodium Chloride 0.9% 1000ml Bag) 1,000 ml @ 1,000 mls/hr Q1H PRN IV hypotension; Start 11/07/16 at 08:09; Stop 11/07/16 at 14:08; Status DC Info (PHARMACY MONITORING -- do not chart) 1 each PRN DAILY PRN MC SEE COMMENTS ; Start 11/07/16 at 08:15; Stop 11/07/16 at 08:15; Status DC Info 1 each 1 each PRN DAILY PRN MC SEE COMMENTS; Start 11/07/16 at 08:15 Vancomycin HCl 1 gm/Sodium Chloride 250 ml @ 250 mls/hr 1X ONCE IV Last administered on 11/07/16t 20:25; Start 11/07/16 at 20:00; Stop 11/07/16 at 20:59 ; Status DC Piperacillin Sod/ Tazobactam Sod 2.25 gm/Sodium Chloride 50 ml @ 100 mls/hr Q8HRS IV Last administered on 11/11/16t 06:02; Start 11/07/16 at 19:30; Stop 11/11/16 at 11:20; Status DC Sodium Chloride (Iv Sodium Chloride 0.9% 1000ml Bag) 1,000 ml @ 1,000 mls/hr Q1H PRN IV hypotension; Start 11/08/16 at 07:35; Stop 11/08/16 at 13:34; Status DC Sodium Chloride (Normal Saline Flush) 10 ml 1X PRN PRN IV AP catheter pack; Start 11/08/16 at 07:45; Stop 11/09/16 at 07:44; Status DC Sodium Chloride (Normal Saline Flush) 10 ml 1X PRN PRN IV INSURANCE OPERATIONS REP catheter pack; Start 11/08/16 at 07:45; Stop 11/09/16 at 07:44; Status DC Info (PHARMACY MONITORING -- do not chart) 1 each PRN DAILY PRN MC SEE COMMENTS ; Start 11/08/16 at 07:45; Status Cancel Info 1 each 1 each PRN DAILY PRN MC SEE COMMENTS; Start 11/08/16 at 07:45; Status Cancel Sodium Chloride (Iv Sodium Chloride 0.9% 1000ml Bag) 1,000 ml @ 1,000 mls/hr Q1H PRN IV hypotension; Start 11/11/16 at 15:23; Stop 11/11/16 at 21:22; Status DC Info (PHARMACY MONITORING -- do not chart) 1 each PRN DAILY PRN MC SEE COMMENTS ; Start 11/11/16 at 15:30; Status Cancel Vitals/I & O Vital Sign - Last 24 Hours 11/11/16 11/11/16 11/11/16 11/12/16 10:57 19:00 23:00 07:00 Temp 98.3 98.9 99.0 99.3 98.3 98.9 99.0 99.3 Pulse 78 87 90 85 Resp 18 18 16 20 B/P 117/78 127/87 124/88 116/76 Pulse Ox 97 97 96 96 O2 Delivery Room Air Room Air 11/12/16 11/12/16 07:43 08:00 Pulse 85 B/P 116/76 O2 Delivery Room Air Intake and Output 11/11/16 11/11/16 11/12/16 15:00 23:00 07:00 Intake Total 240 ml 0 ml Output Total 475 ml Balance 240 ml -475 ml EDWIGE FAIR MD November 12, 2016 10:34
[2016-11-12 10:57] VITALS: BP 116/72
[2016-11-12 14:58] VITALS: BP 117/80
[2016-11-12 19:00] VITALS: BP 125/82
[2016-11-12 23:00] VITALS: BP 137/94
[2016-11-13] VITALS (10 sets, daily range): BP systolic 100–136; BP diastolic 60–97
[2016-11-13] MEDS: HEPARIN PF for SUB-Q USE 5,000 UNIT/0.5 ML VIAL. SQ SCH ×2 (06:00→14:00)
[2016-11-13] MEDS ORDERED: HEPARIN for IV BOLUS 10,000 UNIT/10 ML VIAL. ONE (08:06)
[2016-11-13] MEDS ORDERED: LIDOCAINE 1% / SOD BICARB 8.4% 20 ML VIAL. IJ ONE ×2 (08:07→09:00)
[2016-11-13] MEDS ORDERED: LIDOCAINE 1%/EPI 1:100,000 20 ML VIAL. ONE (08:07)
[2016-11-13] MEDS ORDERED: MIDAZOLAM HCL/PF 5 MG/5 ML VIAL. ONE (08:20)
[2016-11-13] MEDS ORDERED: fentaNYL PF VIAL 250 MCG/5 ML VIAL ONE (08:21)
[2016-11-13] MEDS: amLODIPine BESYLATE 10 MG TABLET PO SCH (09:00)
[2016-11-13] MEDS ORDERED: fentaNYL PF VIAL 250 MCG/5 ML VIAL IV ONE (09:00)
[2016-11-13] MEDS ORDERED: MIDAZOLAM HCL/PF 5 MG/5 ML VIAL. IV ONE (09:00)
--- NOTE | 2016-11-13 09:10 | PDOC ---
BRIEF OPERATIVE NOTE Pre-Op Diagnosis ARF Post-Op Diagnosis same Procedure Performed Temp to Tunnelled HD Exchange Surgeon Judith Anesthesia Type: Conscious Sedation Findings 23 cm RIJ palindrome with excellent manual flows Complications No immediate DEIRDRE CABEZAS MD November 13, 2016 09:10
--- NOTE | 2016-11-13 09:10 | PDOC ---
MODERATE SEDATION ASSESSMENT RISKS/ALTERNATIVES Risks/Alternatives Risks and alternatives of this type of sedation and procedure discussed with: RISK/ALTERNATIVES: Patient H & P ON CHART H & P H & P on chart and reviewed for co-morbid conditions and appropriate labs. H&P ON CHART: Yes STATUS PREG STATUS ASSESSED: Yes MEDS/ALLERGIES REVIEWED Meds/Allergies Reviewed Medications and Allergies including time and route of recently administered narcotics and sedatives. MEDS/ALLERGIES REVIEWED: Yes ASA RATING ASA RATING: II AIRWAY ASSESSMENT Airway Assessment Airway patency, oral function limitations, presence of caps, crowns, dentures, partials, and ability to extend neck assessed. AIRWAY ASSESSMENT: Yes MALLAMPATI SCORE MALLAMPATI SCORE: II PRE-SEDATION ASSESSMENT PRE-SEDATION ASSESSMENT: Yes DEIRDRE CABEZAS MD November 13, 2016 09:10
[2016-11-13] MEDS ORDERED: AMLO10TA4 PO (13:04)
--- NOTE | 2016-11-13 13:08 | PDOC3 ---
Discharge Summary Visit Information Date of Admission: Oct 30, 2016 Date of Discharge: November 13, 2016 Admitting Diagnosis Comment: 1. 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 Fever/SIRS: resolved 3. Hematuria: resolved 4. Accelerated HTN: Final Diagnosis Problems Medical Problems: (1) Accelerated hypertension Status: Acute (2) Acute renal failure (ARF) Status: Acute (3) ESRD (end stage renal disease) Status: Acute (4) Peripheral edema Status: Acute (5) Proteinuria Status: Acute Brief Hospital Course Allergies Allergies Coded Allergies Type Severity Reaction Last Updated Verified No Known Drug Allergies 10/30/16 No Vital Signs Vital Signs Date Time Temp Pulse Resp B/P Pulse Ox O2 Delivery O2 Flow Rate FiO2 11/13/16 12:00 77 22 117/72 98 Room Air 11/13/16 11:00 98.0 98.0 11/13/16 09:04 2.0 Lab Results Laboratory Tests Test 11/12/16 06:55 White Blood Count 9.2x10^3/uL (4.0-11.0) Red Blood Count 2.94x10^6/uL (4.30-5.70) Hemoglobin 9.0g/dL (13.0-17.5) Hematocrit 25.9% (39.0-53.0) Mean Corpuscular Volume 88fL (79-100) Mean Corpuscular Hemoglobin 31pg (25-35) Mean Corpuscular Hemoglobin Concent 35g/dL (31-37) Red Cell Distribution Width 12.0% (11.5-14.5) Platelet Count 310x10^3/uL (140-400) Neutrophils (%) (Auto) 67% (31-73) Lymphocytes (%) (Auto) 16% (24-48) Monocytes (%) (Auto) 12% (0-9) Eosinophils (%) (Auto) 4% (0-3) Basophils (%) (Auto) 1% (0-3) Neutrophils # (Auto) 6.2x10^3uL (1.8-7.7) Lymphocytes # (Auto) 1.5x10^3/uL (1.0-4.8) Monocytes # (Auto) 1.1x10^3/uL (0.0-1.1) Eosinophils # (Auto) 0.4x10^3/uL (0.0-0.7) Basophils # (Auto) 0.1x10^3/uL (0.0-0.2) Sodium Level 136mmol/L (136-145) Potassium Level 4.3mmol/L (3.5-5.1) Chloride Level 102mmol/L (98-107) Carbon Dioxide Level 28mmol/L (21-32) Anion Gap 6 (6-14) Blood Urea Nitrogen 27mg/dL (8-26) Creatinine 6.9mg/dL (0.7-1.3) Estimated GFR (Cockcroft-Gault) 9.8 Glucose Level 113mg/dL (70-99) Calcium Level 7.9mg/dL (8.5-10.1) Brief Hospital Course Mr. Sutherland is a 25 old non polish speaking male. came for fevers, gross hematuria, nephrotic syndrome, accelerated HTN, Needed eventually to have kidney biopsy - IgA nephropathy on biopsy, SP, able to arrange for OP HD MWF New med, norvasc 10 qD Dw Renal Pt seen and examined Dw pt and RN Dc 31 mins, Discharge Information Condition at Discharge: Improved, Stable Disposition/Orders: D/C to Home DAR RODRIGUEZ MD November 13, 2016 13:08
--- NOTE | 2016-11-13 14:13 | PDOC ---
Dialysis Progress Note Dialysis Note Dialysis Note Seen on Hemodialysis, tolerating treatment Okay Vitals on Hemodialysis: 123/53 78 afeb General Appearance: Asleep Neck: No JVD or JVP Chest: CTA Noble Heart: S1 S2 Abdomen - Soft NTND Extremities - No Edema ESRD: Dialysis as below F 180 NR 3.5 Hrs 3 K 2.5 Ca 140 Na 30 HC03 Qb 350 + Qd 500+ Heparin 0 Units Uf 0-1 Kgs or to dry weight as tolerated May give 25-50 gms of 25% Albumin if needed to maintain Hemodynamic stability Treatment plan reviewed and discussed with store cashier Vitals Vital Signs Vital Signs Date Time Temp Pulse Resp B/P Pulse Ox O2 Delivery O2 Flow Rate FiO2 11/13/16 12:00 77 22 117/72 98 Room Air 11/13/16 11:00 98.0 98.0 11/13/16 09:04 2.0 Labs Last Labs Laboratory Tests Test 11/12/16 06:55 White Blood Count 9.2x10^3/uL (4.0-11.0) Red Blood Count 2.94x10^6/uL (4.30-5.70) Hemoglobin 9.0g/dL (13.0-17.5) Hematocrit 25.9% (39.0-53.0) Mean Corpuscular Volume 88fL (79-100) Mean Corpuscular Hemoglobin 31pg (25-35) Mean Corpuscular Hemoglobin Concent 35g/dL (31-37) Red Cell Distribution Width 12.0% (11.5-14.5) Platelet Count 310x10^3/uL (140-400) Neutrophils (%) (Auto) 67% (31-73) Lymphocytes (%) (Auto) 16% (24-48) Monocytes (%) (Auto) 12% (0-9) Eosinophils (%) (Auto) 4% (0-3) Basophils (%) (Auto) 1% (0-3) Neutrophils # (Auto) 6.2x10^3uL (1.8-7.7) Lymphocytes # (Auto) 1.5x10^3/uL (1.0-4.8) Monocytes # (Auto) 1.1x10^3/uL (0.0-1.1) Eosinophils # (Auto) 0.4x10^3/uL (0.0-0.7) Basophils # (Auto) 0.1x10^3/uL (0.0-0.2) Sodium Level 136mmol/L (136-145) Potassium Level 4.3mmol/L (3.5-5.1) Chloride Level 102mmol/L (98-107) Carbon Dioxide Level 28mmol/L (21-32) Anion Gap 6 (6-14) Blood Urea Nitrogen 27mg/dL (8-26) Creatinine 6.9mg/dL (0.7-1.3) Estimated GFR (Cockcroft-Gault) 9.8 Glucose Level 113mg/dL (70-99) Calcium Level 7.9mg/dL (8.5-10.1) Assessment Assessment Problems Medical Problems: (1) Accelerated hypertension Status: Acute (2) Acute renal failure (ARF) Status: Acute (3) ESRD (end stage renal disease) Status: Acute (4) Peripheral edema Status: Acute (5) Proteinuria Status: Acute Problems: Plan Plan of Care Problems Medical Problems: (1) Accelerated hypertension Status: Acute (2) Acute renal failure (ARF) Status: Acute (3) Peripheral edema Status: Acute (4) Proteinuria Status: Acute JORDY URIOSTEGUI MD November 13, 2016 14:13
--- NOTE | 2016-11-13 16:13 | RAD ---
Procedure: Fluoroscopic guided exchange of a temporary for tunneled hemodialysis catheter Clinical Indication: 25-year-old with acute renal failure Sedation: Conscious sedation was administered for 8 minutes. The patient was monitored by a qualified independent observer throughout the time of sedation. Please refer to the medical record for exact doses of medications utilized to achieve moderate sedation. Antibiotics: Antibiotic was administered intravenously within 1 hour of the procedure start time. Fluoro Time: 0.2 minutes. Images: 1 Contrast: None Sterility: All elements of maximal sterile barrier technique including the use of a cap, mask, sterile gown, sterile gloves, large sterile sheet, appropriate hand hygiene, and 2% chlorhexidine for cutaneous antisepsis (or acceptable alternative antiseptic per current guidelines) were followed for this procedure. Consent: The procedure was explained in its entirety to the patient or the patients designated airline security representative by a member of the treatment team, including a discussion of the risks, benefits and commonly accepted alternatives to the procedure, as well as the expected consequences of no therapy whatsoever. Discussion of the risks included, but was not limited to, those that are most frequent and those that are rare but possibly severe or life-threatening, as well as the possibility of unforeseen complications. Technique and Findings: Following informed consent, the patient was prepped and draped in usual sterile fashion. 1% lidocaine was used to achieve local anesthesia over the existing catheter site, as well as in the right chest wall. A small dermatotomy was made. A 23 cm palindrome hemodialysis catheter was then tunneled subcutaneously towards the existing temporary catheter. The temporary catheter was then removed over an Amplatz wire and a large caliber peel-away sheath was placed and used to deploy the new tunneled catheter under fluoroscopic guidance such that the distal tip resided in the proximal right atrium. Manual flow rates were assessed and found to be excellent. This catheter was flushed, packed with heparin, capped, and sutured to the skin. The neck dermatotomy was closed with Dermabond. Complications: No immediate Impression: 1. Fluoroscopic guided exchange of a temporary for tunneled hemodialysis catheter as described.
[2016-11-13] MEDS ORDERED: IV NORMAL SALINE 1000ML BAG 1,000 ML IV PRN (16:55)
[2016-11-13] MEDS ORDERED: 0.9 % SODIUM CHLORIDE 10 ML DISP.SYRIN. IV PRN ×2 (17:00)
[2016-11-13] MEDS ORDERED: DIALYSIS PATIENT. MC PRN (17:00)
[2016-11-13] MEDS: ACETAMINOPHEN 325 MG TABLET. PO PRN (18:45)
== END 2016-11-13 19:28 | disposition home or self-care (01) | DRG 674 ==
LOC: ER 15:21 → ED HOLD 16:43 → 5 SOUTH 19:24 → 2 SOUTH 11-04 16:10 → 5 SOUTH 11-08 23:31
PROVIDERS: ADMIT Internal Medicine; ATTEND Internal Medicine
PROC: 0TB13ZX Excision of Left Kidney, Percutaneous Approach, Diagnostic (ICD-10-PCS; principal; 2016-11-01)
PROC: 05HM33Z Insertion of Infusion Device into Right Internal Jugular Vein, Percutaneous Approach (ICD-10-PCS; 2016-11-01)
PROC: B5131ZA Fluoroscopy of Right Jugular Veins using Low Osmolar Contrast, Guidance (ICD-10-PCS; 2016-11-01)
PROC: 04VA3DZ Restriction of Left Renal Artery with Intraluminal Device, Percutaneous Approach (ICD-10-PCS; 2016-11-04)
PROC: B4101ZZ Fluoroscopy of Abdominal Aorta using Low Osmolar Contrast (ICD-10-PCS; 2016-11-04)
PROC: 5A1D60Z (ICD-10-PCS; 2016-11-07)
PROC: 02H633Z Insertion of Infusion Device into Right Atrium, Percutaneous Approach (ICD-10-PCS; 2016-11-13)
PROC: B2141ZZ Fluoroscopy of Right Heart using Low Osmolar Contrast (ICD-10-PCS; 2016-11-13)
PROC: 05PY33Z Removal of Infusion Device from Upper Vein, Percutaneous Approach (ICD-10-PCS; 2016-11-13)
DX: N17.0 Acute kidney failure with tubular necrosis (principal); E87.2 Acidosis; E44.1 Mild protein-calorie malnutrition; I12.0 Hypertensive chronic kidney disease with stage 5 chronic kidney disease or end stage renal disease; J90 Pleural effusion, not elsewhere classified; R18.8 Other ascites; R65.10 Systemic inflammatory response syndrome (SIRS) of non-infectious origin without acute organ dysfunction; N99.840 Postprocedural hematoma of a genitourinary system organ or structure following a genitourinary system procedure; N18.6 End stage renal disease; D72.829 Elevated white blood cell count, unspecified; Y84.8 Other medical procedures as the cause of abnormal reaction of the patient, or of later complication, without mention of misadventure at the time of the procedure; E87.5 Hyperkalemia; Z79.899 Other long term (current) drug therapy; Z87.441 Personal history of nephrotic syndrome; Z99.2 Dependence on renal dialysis; Z68.24 Body mass index [BMI] 24.0-24.9, adult
CPT/HCPCS: 36253; 36415; 36556; 36558; 37244; 50200; 71010; 71020; 74176; 76770; 76937; 77001; 77012; 80047; 80048; 80053; 80069; 80074; 81001; 82550; 82553; 82575; 82962; 83520; 83605; 83880; 83970; 84156; 84484; 85007; 85027; 85610; 85651; 85730; 86021; 86160; 86703; 86704; 86706; 87040; 93005; 96374; A4215; C1713; C1750; C1760; C1769; C1887; C1892; C1894; G0269; J0360; J0690; J2250; J2543; J3010; J3370; J3490; J7050; 83516; 83876; 99285-25; J7030

== ENCOUNTER 2016-11-15 14:36 | Inpatient (IN) | payer SELFPAY ==
[~2016-11-15] VITALS: Ht 162.6 cm; Wt 65.3 kg
[~2016-11-15 14:36] MED LIST: AMLO10TA4 PO
--- NOTE | 2016-11-15 15:35 | PHYS DOC ---
Past Medical History Past Medical History: Renal Failure Additional Past Medical Histor: ?Liver problems Past Surgical History: No Surgical History Additional Past Surgical Histo: Dialysis right upper chest Alcohol Use: Occasionally Drug Use: None Adult General Chief Complaint Chief Complaint: DIALYSIS PROBLEM HPI HPI Patient is a 25 year old male who presents for dialysis. The patient has recently diagnosed IgA nephropathy with end-stage renal disease, recently started on dialysis. He was discharged from inpatient hospitalization 2 days ago , instructed to return today for dialysis. He denies chest pain, shortness of breath, lower extremity edema. He has no complaints at this time. Does not have a PCP. The patient speaks Karenini, history obtained with assistance of Arabic language line safety and skill based pay manager. Review of Systems Review of Systems Constitutional: Denies fever or chills HENT: Denies nasal congestion or sore throat Respiratory: Denies cough or shortness of breath Cardiovascular: Denies chest pain or edema GI: Denies abdominal pain, nausea, vomiting Musculoskeletal: Denies back pain or joint pain Integument: Denies rash Neurologic: Denies headache, focal weakness or sensory changes Current Medications Current Medications Current Medications Medications (Trade) Dose Ordered Sig/Alexander Start Time Stop Time Status Last Admin Dose Admin Acetaminophen (Tylenol) 650 mg PRN Q4HRS PRN 11/15/16 15:45 11/16/16 15:44 Ondansetron HCl (Zofran) 4 mg PRN Q8HRS PRN 11/15/16 15:45 11/16/16 15:44 Allergies Allergies Allergies Coded Allergies Type Severity Reaction Last Updated Verified No Known Drug Allergies 10/30/16 No Physical Exam Physical Exam Constitutional: Well developed, well nourished, no acute distress, non-toxic appearance. HENT: Normocephalic, atraumatic, bilateral external ears normal, oropharynx moist, nose normal. Eyes: conjunctiva normal, no discharge. Neck: supple, no stridor. Cardiovascular: RRR, no murmurs, no edema. Lungs & Thorax: LCTAB, no wheezing, no respiratory distress. Abdomen: soft, nontender, nondistended. Skin: Warm, dry, no erythema, no rash. Back: No tenderness. Extremities: No tenderness, no edema. Neurologic: Alert and oriented X 3 Current Patient Data Vital Signs Vital Signs Date Time Temp Pulse Resp B/P (MAP) Pulse Ox O2 Delivery O2 Flow Rate FiO2 5/5/17 15:00 98.3 93 16 143/98 (113) 99 Room Air 98.3 Lab Values Laboratory Tests Test 11/15/16 15:43 POC Hemoglobin 8.5 g/dL (14-18) L POC Hematocrit 25 % (37-52) L POC Sodium 140 mmol/L (135-145) POC Potassium 4.3 mmol/L (3.5-5.0) POC Chloride 106 mmol/L (98-110) POC Total CO2 22 mmol/L (23-32) L Anion Gap 17 mmol/L (6-14) H POC Blood Urea Nitrogen 32 mg/dL (8-26) H POC Creatinine 8.2 mg/dL (0.5-1.4) H Glucose Level 118 mg/dL (70-99) H POC Ionized Calcium (Mahad) 1.11 mmol/L (1.13-1.32) L Laboratory Tests 11/15/16 15:43 EKG EKG interpreted by me: NSR rate 74, no acute ST/T wave changes, normal intervals, no ectopy.[] Radiology/Procedures Radiology/Procedures [] Course & Med Decision Making Course & Med Decision Making Pertinent Labs and Imaging studies reviewed. (See chart for details) Patient presents for scheduled dialysis, is a self-pay patient. Discussed with Dr. Pinto who recommends admission to the hospitalist and they will arrange for dialysis. Dr. Cervantes accepts for admission to observation status. Patient admitted in stable condition. [] Dragon Disclaimer Dragon Disclaimer This electronic medical record was generated, in whole or in part, using a voice recognition dictation system. Departure Departure Impression: Primary Impression: ESRD (end stage renal disease) Disposition: ADMITTED INPATIENT Admitting Physician: Meredith Cervantes Condition: STABLE Referrals: NO PCP (PCP) NELSY MULLIGAN MD November 15, 2016 15:35
[2016-11-15] MEDS ORDERED: ACETAMINOPHEN 325 MG TABLET. PO PRN (15:45)
[2016-11-15] MEDS ORDERED: ONDANSETRON PF 4 MG/2 ML VIAL. IV PRN (15:45)
--- NOTE | 2016-11-15 15:48 | PDOC1 ---
History and Physical Date of Admission Date of Admission DATE: 11/15/16 TIME: 15:47 Identification/Chief Complaint Chief Complaint due HD MWF Problems: Source Source: Caregiver, Chart review, Patient History of Present Illness History of Present Illness Mr. Sutherland is a 25 old non sao tomean speaking male. comes for HD - he is due MWF, NO sxs, BMP pending He was dcd 2 days ago my me after being dc with IgA nephropathy when he came for fevers, gross hematuria, nephrotic syndrome, accelerated HTN, Needed eventually to have kidney biopsy - IgA nephropathy on biopsy, New med, norvasc 10 qD Medicaid pending for OP [facility] set up Past Medical History Cardiovascular: HTN Past Surgical History Past Surgical History: No pertinent history Family History Family History: No Significant Social History Smoke: No ALCOHOL: none Drugs: None Current Problem List Problem List Problems Medical Problems: (1) ESRD (end stage renal disease) Status: Acute Problems: Current Medications Current Medications Current Medications Ondansetron HCl (Zofran) 4 mg PRN Q8HRS PRN IV NAUSEA/VOMITING; Start 11/15/16 at 15:45; Stop 11/16/16 at 15:44 Acetaminophen (Tylenol) 650 mg PRN Q4HRS PRN PO FEVER; Start 11/15/16 at 15:45; Stop 11/16/16 at 15:44 Active Scripts Active Norvasc (Amlodipine Besylate) 10 Mg Tablet 10 Mg PO DAILY Allergies Allergies: Coded Allergies: No Known Drug Allergies (Unverified , 10/30/16) ROS General: No: Chills, Night Sweats, Fatigue, Malaise, Appetite, Other PSYCHOLOGICAL ROS: No: Anxiety, Behavioral Disorder, Concentration difficultie , Decreased libido, Depression, Disorientation, Hallucinations, Hostility, Irritablity, Memory difficulties, Mood Swings, Obsessive thoughts, Physical abuse, Sexual abuse, Sleep disturbances, Suicidal ideation, Other Eyes: No Blurry vision, No Decreased vision, No Double vision, No Dry eyes, No Excessive tearing, No Eye Pain, No Itchy Eyes, No Loss of vision, No Photophobia , No Scotomata, No Uses contacts, No Uses glasses, No Other HEENT: No: Heacaches, Visual Changes, Hearing change, Nasal congestion, Nasal discharge, Oral lesions, Sinus pain, Sore Throat, Epistaxis, Sneezing, Snoring, Tinnitus, Vertigo, Vocal changes, Other ALLERGY AND IMMUNOLOGY: No: Hives, Insect Bite Sensitivity, Itchy/Watery Eyes, Nasal Congestion, Post Nasal Drip, Seasonal Allergies, Other Hematological and Lymphatic: No: Bleeding Problems, Blood Clots, Blood Transfusions, Brusing, Night Sweats, Pallor, Swollen Lymph Nodes, Other ENDOCRINE: No: Breast Changes, Galactorrhea, Hair Pattern Changes, Hot Flashes , Malaise/lethargy, Mood Swings, Palpitations, Polydipsia/polyuria, Skin Changes , Temperature Intolerance, Unexpected Weight Changes, Other Breast: No New/Changing Breast Lumps, No Nipple changes, No Nipple discharge, No Other Respiratory: No: Cough, Hemoptysis, Orthopnea, Pleuritic Pain, Shortness of breath, SOB with excertion, Sputum Changes, Stridor, Tachypnea, Wheezing, Other Cardiovascular: No Chest Pain, No Palpitations, No Orthopnea, No Paroxysmal Noc. Dyspnea, No Edema, No Lt Headedness, No Other Gastrointestinal: No Nausea, No Vomiting, No Abdominal Pain, No Diarrhea, No Constipation, No Melena, No Hematochezia, No Other Genitourinary: No Dysuria, No Frequency, No Incontinence, No Hematuria, No Retention, No Discharge, No Urgency, No Pain, No Flank Pain, No Other, No , No , No , No , No , No , No Musculoskeletal: No Gait Disturbance, No Joint Pain, No Joint Stiffness, No Joint Swelling, No Muscle Pain, No Muscular Weakness, No Pain In:, No Swelling In:, No Other Neurological: No Behavorial Changes, No Bowel/Bladder ControlChng, No Confusion , No Dizziness, No Gait Disturbance, No Headaches, No Impaired Coord/balance, No Memory Loss, No Numbness/Tingling, No Seizures, No Speech Problems, No Tremors, No Visual Changes, No Weakness, No Other Skin: No Dry Skin, No Eczema, No Hair Changes, No Lumps, No Mole Changes, No Mottling, No Nail Changes, No Pruritus, No Rash, No Skin Lesion Changes, No Other, No Acne Vitals Vitals Vital Signs Date Time Temp Pulse Resp B/P (MAP) Pulse Ox O2 Delivery O2 Flow Rate FiO2 11/15/16 15:00 98.3 93 16 143/98 (113) 99 Room Air 98.3 VTE Prophylaxis Ordered VTE Prophylaxis Devices: Yes VTE Pharmacological Prophylaxi: Yes Assessment/Plan Assessment/Plan 1. IgA nephropathy by renal biopsy - new dx 2. Fever/SIRS: resolved 3. Hematuria: resolved 4. Accelerated HTN: 5. ESRD now NEw HD PLAn: Admit oBS HD per renal Awaiting BMP Resume home meds Home after HD SW on medicaid approval;- on the works In the meantime, will cont coming to ER for HD until mediciad approved [facility] and [facility]' Seen at ER DAR RODRIGUEZ MD November 15, 2016 15:48
[2016-11-15 15:49] LABS: POTASSIUM ISTAT 4.3 mmol/L (3.5-5.0)
--- NOTE | 2016-11-15 15:49 | EKG ---
[facility] [address] [place] [address] Test Date: 2016-11-15 Test Time: 15:44:48 Pat Name: LOVE RAY Department: Room: Gender: M Capsule Inspector: : 1990 Requested By: NELSY MULLIGAN Order Number: [id number] Reading MD: Precious Pascal Measurements Intervals [place] Rate: 74 P: 35 TX: 160 QRS: 23 QRSD: 90 T: 12 QT: 364 QTc: 409 Interpretive Statements SINUS RHYTHM NORMAL ECG RI6.01 Unconfirmed report Compared to ECG 10/30/2016 16:13:21 No significant changes Electronically Signed On 11-17-2016 17:52:52 CDT by Precious Pascal
--- NOTE | 2016-11-15 17:38 | ACF ---
Admission Forms Criteria RENAL FAILURE, CHRONIC Clinical Indications for Admission to Inpatient Care (Place 'X' for any and all applicable criteria): Admission is indicated for ANY ONE of the following (1)(2)(3)(4)(5): [X]I. Inpatient admission required rather than observation care (Use Renal Failure, Chronic: Observation Care Criteria as appropriate) because of ANY ONE of the following: [ ]a) Volume overload or uremic symptoms (eg, clinically significant pulmonary edema, hypertension, pericarditis, acidosis) too severe for, or not responsive (eg, for over 24 hours) to emergency department or observation care dialysis or treatment regimen (11) [ ]b) Hemodynamic instability that is severe or persistent [ ]c) Respiratory distress that is severe or persistent (11) [ ]d) Clinically significant electrolyte abnormality that requires inpatient care (eg,hyperkalemia with severe ECG findings)[B] [ ]e) Supplement O2 or respiratory therapy for over 24hrs that is performable only in acute inpatient setting [ ]f) Continuous IV infusion of anticoagulation, platelet inhibitor, vasoactive, or Antiarrhythmic medication (15), [ ]g) Pulmonary artery catheter monitoring [ ]h) Temporary pacemaker placement [ ]i) Emergent pericardiocentesis [X]j) Other condition, treatment or monitoring requiring inpatient admission [ ]II. Unexplained syncope [A] [ ]III. Recurrent seizures [ ]IV. Severe infections not treatable in outpatient setting (eg, peritonitis)(9 ) [ ]V. Cardiac arrhythmias of immediate concern [ ]. Encephalopathy [ ]VII.Bleeding abnormalities (eg, platelet dysfunction) with active (eg, gastrointestinal) bleeding Extended stay beyond goal length of stay may be needed for (3)(4)(35)(36): [ ]a) Continuing uremic complications [ ]b) Comorbidities or complications The original [facility] content created by [employer] has been revised. The portions of the content which have been revised are identified through the use of italic text or in bold, and [facility] has neither reviewed nor approved the modified material. All other unmodified content is copyright [facility]. Please see references footnoted in the original [facility] edition 2016 Admission Criteria Met?: Yes MICA PALENCIA November 15, 2016 17:38
[2016-11-15] MEDS ORDERED: amLODIPine BESYLATE 10 MG TABLET PO SCH (17:44)
[2016-11-15 18:45] VITALS: BP 149/95
[2016-11-15] MEDS ORDERED: IV NORMAL SALINE 1000ML BAG 1,000 ML IV PRN (20:24)
[2016-11-15] MEDS ORDERED: DIALYSIS PATIENT. MC PRN (20:30)
[2016-11-15] MEDS ORDERED: 0.9 % SODIUM CHLORIDE 10 ML DISP.SYRIN. IV PRN ×2 (20:30)
[2016-11-15 22:46] VITALS: BP 135/86
--- NOTE | 2016-11-16 11:34 | PDOC3 ---
Discharge Summary Visit Information Date of Admission: November 15, 2016 Date of Discharge: November 16, 2016 Admitting Diagnosis Comment: 1. IgA nephropathy by renal biopsy - new dx 2. ESRD now NEw HD - finished hd in OBS admit Final Diagnosis Problems Medical Problems: (1) ESRD (end stage renal disease) Status: Acute Brief Hospital Course Allergies Allergies Coded Allergies Type Severity Reaction Last Updated Verified No Known Drug Allergies 10/30/16 No Vital Signs Vital Signs Date Time Temp Pulse Resp B/P (MAP) Pulse Ox O2 Delivery O2 Flow Rate FiO2 11/15/16 22:46 97.3 80 18 135/86 (102) 97 Room Air 97.3 Lab Results Laboratory Tests Test 11/15/16 15:43 Bedside Hemoglobin 8.5 g/dL (14-18) Bedside Hematocrit 25 % (37-52) Bedside Sodium 140 mmol/L (135-145) Bedside Potassium 4.3 mmol/L (3.5-5.0) Bedside Chloride 106 mmol/L (98-110) Bedside Total CO2 22 mmol/L (23-32) Anion Gap 17 mmol/L (6-14) Bedside Blood Urea Nitrogen 32 mg/dL (8-26) Bedside Creatinine 8.2 mg/dL (0.5-1.4) Glucose Level 118 mg/dL (70-99) Bedside Ionized Calcium (Mahad) 1.11 mmol/L (1.13-1.32) Laboratory Tests Test 11/15/16 15:43 Bedside Hemoglobin 8.5 g/dL (14-18) Bedside Hematocrit 25 % (37-52) Bedside Sodium 140 mmol/L (135-145) Bedside Potassium 4.3 mmol/L (3.5-5.0) Bedside Chloride 106 mmol/L (98-110) Bedside Total CO2 22 mmol/L (23-32) Anion Gap 17 mmol/L (6-14) Bedside Blood Urea Nitrogen 32 mg/dL (8-26) Bedside Creatinine 8.2 mg/dL (0.5-1.4) Glucose Level 118 mg/dL (70-99) Bedside Ionized Calcium (Mahad) 1.11 mmol/L (1.13-1.32) Brief Hospital Course Mr. Sutherland is a 25 old [sex] who presented with [ ] Mr. Sutherland is a 25 old non italian speaking male. comes for HD - he is due MWF, NO sxs, BMP pending He was dcd 2 days ago my me after being dc with IgA nephropathy when he came for fevers, gross hematuria, nephrotic syndrome, accelerated HTN, Needed eventually to have kidney biopsy - IgA nephropathy on biopsy, New med, norvasc 10 qD Medicaid pending for OP [facility] set up Discharge Information Condition at Discharge: Improved, Stable Disposition/Orders: D/C to Home Scheduled Amlodipine Besylate (Norvasc), 10 MG PO DAILY DAR RODRIGUEZ MD November 16, 2016 11:34
== END 2016-11-15 22:57 | disposition home or self-care (01) | DRG 682 ==
LOC: ER 14:36 → 5 SOUTH 15:27 → ER 18:03
PROVIDERS: ADMIT Internal Medicine; ATTEND Internal Medicine
PROC: 5A1D00Z (ICD-10-PCS; principal; 2016-11-15)
DX: I12.0 Hypertensive chronic kidney disease with stage 5 chronic kidney disease or end stage renal disease (principal); N18.6 End stage renal disease; R65.10 Systemic inflammatory response syndrome (SIRS) of non-infectious origin without acute organ dysfunction; Z87.441 Personal history of nephrotic syndrome
CPT/HCPCS: 80047; 93005; 99285-25

== ENCOUNTER 2016-12-04 20:19 | Emergency (ER) | payer OTHER ==
[~2016-12-04] VITALS: Ht 162.6 cm; Wt 63.5 kg
[2016-12-04 21:53] LABS: BASO % 1 % (0-3); EOS % 3 % (0-3); HEMATOCRIT 21.9 % (39.0-53.0); HEMOGLOBIN 7.6 g/dL (13.0-17.5); LYMPH % 18 % (24-48); MEAN CORPUSCULAR HEMOGLOBIN 30 pg (25-35); MEAN CORPUSCULAR HGB CONC 35 g/dL (31-37); MEAN CORPUSCULAR VOLUME 85 fL (79-100); MONO % 9 % (0-9); NEUT % 71 % (31-73); PLATELET COUNT 124 x10^3/uL (140-400); RED BLOOD COUNT 2.58 x10^6/uL (4.30-5.70); RED CELL DISTRIBUTION WIDTH 13.3 % (11.5-14.5); WHITE BLOOD COUNT 5.9 x10^3/uL (4.0-11.0)
--- NOTE | 2016-12-04 22:00 | RAD ---
CT Head without contrast Indication: blurred vision x 3 days, no priors Date of service:12/04/2016 9:27 PM. Comparison: None available. Technique:: Contiguous helical images are obtained from foramen magnum, to the vertex without IV contrast . Findings: The ventricles and sulci are normal for the patient's age. No mass , midline shift , hemorrhage or acute infarct is present. Bone windows are normal without calvarial abnormality. The visualized orbits and mastoid air cells are clear . There is mucoperiosteal thickening involving the left mastoid sinus Impression: Normal CT scan of the head. Left maxillary chronic sinus disease PQRS Compliance Statement: One or more of the following individualized dose reduction techniques were utilized for this examination: 1. Automated exposure control 2. Adjustment of the mA and/or kV according to patient size 3. Use of iterative reconstruction technique Electronically signed by: Jenny Stanley MD (12/04/2016 9:57 PM)
[2016-12-04 22:05] LABS: CREATININE 4.1 mg/dL (0.7-1.3); GFR 17.9; MAGNESIUM 1.8 mg/dL (1.8-2.4); POTASSIUM 3.9 mmol/L (3.5-5.1)
--- NOTE | 2016-12-04 22:39 | PHYS DOC ---
Past Medical History Past Medical History: Renal Failure Additional Past Medical Histor: IgA nephropathy Past Surgical History: No Surgical History Additional Past Surgical Histo: Dialysis right upper chest Alcohol Use: Occasionally Drug Use: None Adult General Chief Complaint Chief Complaint: BLURRED/DOUBLE VISION HPI HPI Patient is a 25 year old male who presents with complaint of blurry vision. The patient has history of end-stage renal disease and uncontrolled hypertension. The patient states that over the past 3 days he has been having blurring of vision but denies any headache, chest pain, or shortness of breath. Patient states he has had generalized weakness. Patient was at dialysis earlier today and was able to complete a full course of treatment. Patient was told that he had significantly elevated blood pressure at that time. Patient states that they gave him medication to help with his blood pressure at that time. Patient states that he was told to come to the emergency department for further evaluation. Patient admits that he has not been taking his blood pressure medication every day as prescribed as he did not understand that this wouldn't be necessary after being diagnosed with hypertension and renal failure. Patient denies any doubling of vision or loss of vision. Patient states that he is having difficulty focusing and being able to read print due to the blurring of vision. Review of Systems Review of Systems Constitutional: Generalized weakness, denies fever or chills [] Eyes: Blurry vision, denies eye pain [] HENT: Denies nasal congestion or sore throat [] Respiratory: Denies cough or shortness of breath [] Cardiovascular: Denies chest pain or edema [] GI: Denies abdominal pain, nausea, vomiting, bloody stools or diarrhea [] : Denies dysuria or hematuria [] Musculoskeletal: Denies back pain or joint pain [] Integument: Denies rash or skin lesions [] Neurologic: Denies headache, focal weakness or sensory changes [] Allergies Allergies Allergies Coded Allergies Type Severity Reaction Last Updated Verified No Known Drug Allergies 10/30/16 No Physical Exam Physical Exam Constitutional: Alert, afebrile, no acute distress. [] HENT: Normocephalic, atraumatic, bilateral external ears normal, oropharynx pale , no oral exudates, nose normal. [] Eyes: PERRLA, EOMI, conjunctiva normal, funduscopic exam reveals no clouding of anterior chamber for vitreous, no discharge. [] Neck: Normal range of motion, no tenderness, supple, no stridor. [] Cardiovascular:Heart rate regular rhythm, no murmur [] Lungs & Thorax: Bilateral breath sounds clear to auscultation [] Abdomen: Bowel sounds normal, soft, no tenderness, no masses, no pulsatile masses. [] Skin: Warm, dry, no erythema, no rash. [] Back: No tenderness, no CVA tenderness. [] Extremities: No tenderness, no cyanosis, no clubbing, ROM intact, no edema. [] Neurologic: Alert and oriented X 3, normal motor function, normal sensory function, no focal deficits noted. [] Current Patient Data Vital Signs Vital Signs Date Time Temp Pulse Resp B/P (MAP) Pulse Ox O2 Delivery O2 Flow Rate FiO2 12/04/16 23:00 65 21 147/101 (116) 96 Room Air 12/04/16 20:47 98.5 98.5 Lab Values Laboratory Tests Test 12/04/16 21:45 White Blood Count 5.9 x10^3/uL (4.0-11.0) Red Blood Count 2.58 x10^6/uL (4.30-5.70) L Hemoglobin 7.6 g/dL (13.0-17.5) L Hematocrit 21.9 % (39.0-53.0) L Mean Corpuscular Volume 85 fL (79-100) Mean Corpuscular Hemoglobin 30 pg (25-35) Mean Corpuscular Hemoglobin Concent 35 g/dL (31-37) Red Cell Distribution Width 13.3 % (11.5-14.5) Platelet Count 124 x10^3/uL (140-400) L Neutrophils (%) (Auto) 71 % (31-73) Lymphocytes (%) (Auto) 18 % (24-48) L Monocytes (%) (Auto) 9 % (0-9) Eosinophils (%) (Auto) 3 % (0-3) Basophils (%) (Auto) 1 % (0-3) Neutrophils # (Auto) 4.2 x10^3uL (1.8-7.7) Lymphocytes # (Auto) 1.0 x10^3/uL (1.0-4.8) Monocytes # (Auto) 0.5 x10^3/uL (0.0-1.1) Eosinophils # (Auto) 0.2 x10^3/uL (0.0-0.7) Basophils # (Auto) 0.0 x10^3/uL (0.0-0.2) Sodium Level 139 mmol/L (136-145) Potassium Level 3.9 mmol/L (3.5-5.1) Chloride Level 103 mmol/L (98-107) Carbon Dioxide Level 30 mmol/L (21-32) Anion Gap 6 (6-14) Blood Urea Nitrogen 11 mg/dL (8-26) Creatinine 4.1 mg/dL (0.7-1.3) H Estimated GFR (Cockcroft-Gault) 17.9 Glucose Level 254 mg/dL (70-99) H Calcium Level 8.0 mg/dL (8.5-10.1) L Magnesium Level 1.8 mg/dL (1.8-2.4) Laboratory Tests 12/04/16 21:45 Laboratory Tests 12/04/16 21:45 EKG EKG Not performed [] Radiology/Procedures Radiology/Procedures [facility] [address] [place] [address] IMAGING REPORT Signed PATIENT: LOVE RAY ACCOUNT: [id number] : 1990 LOCATION: ER AGE: 25 SEX: M EXAM STATUS: REG ER ORD. PHYSICIAN: JERO TALAVERA MD REASON: blurry vision for 3 days PROCEDURE: CT HEAD WO CONTRAST CT Head without contrast Indication: blurred vision x 3 days, no priors Date of service:12/04/2016 9:27 PM. Comparison: None available. Technique:: Contiguous helical images are obtained from foramen magnum, to the vertex without IV contrast . Findings: The ventricles and sulci are normal for the patient's age. No mass , midline shift , hemorrhage or acute infarct is present. Bone windows are normal without calvarial abnormality. The visualized orbits and mastoid air cells are clear . There is mucoperiosteal thickening involving the left mastoid sinus Impression: Normal CT scan of the head. Left maxillary chronic sinus disease PQRS Compliance Statement: One or more of the following individualized dose reduction techniques were utilized for this examination: 1. Automated exposure control 2. Adjustment of the mA and/or kV according to patient size 3. Use of iterative reconstruction technique Electronically signed by: Jenny Stanley MD (12/04/2016 9:57 PM) DICTATED and SIGNED BY: JENNY STANLEY MD DATE: 12/04/162149 CC: JERO TALAVERA MD; NO PCP ~ [] Course & Med Decision Making Course & Med Decision Making Pertinent Labs and Imaging studies reviewed. (See chart for details) Patient's CT head was negative and patient's vital signs have remained stable in the emergency department. Patient was noted to have a hemoglobin level is 7.6. I spoke with Dr. Elena of nephrology. He stated that the patient had critically high blood pressure while in dialysis earlier today of 210 systolic. Patient was given 0.4 mg of clonidine and he stated that the patient was recommended to come to the emergency department for evaluation. After speaking with him he is informed that the patient's blood pressure had improved significantly at this time. He stated that the patient could go home and his hemoglobin could be managed through his outpatient dialysis at this time. He reiterated that the patient needs to take his blood pressure medication daily which was explained to the patient. He voiced understanding of this. The patient will be referred to Dr. Enriquez of ophthalmology as I suspect that the patient's blurry vision may be due to possible hypertensive retinopathy. Advised patient to return emergency department for any worsening symptoms. Patient voiced understanding and in agreement with treatment plan. Dragon Disclaimer Dragon Disclaimer This electronic medical record was generated, in whole or in part, using a voice recognition dictation system. Departure Departure Impression: Primary Impression: Blurry vision Additional Impressions: End stage renal disease Hypertension Anemia Disposition: ADMITTED INPATIENT Condition: STABLE Referrals: NO PCP (PCP) TOMI ENRIQUEZ MD Patient Instructions: End Stage Kidney Disease, Eye - Blurred Vision, Hypertension Additional Instructions: Follow-up in the next 1-[address] Enriquez of ophthalmology for further evaluation of your vision changes. This is believed to be due to your uncontrolled blood pressure and it is recommended that you start taking your medication daily as prescribed. Return to the emergency department for any worsening symptoms. Problem Qualifiers Additional Impressions: Hypertension Hypertension type: essential hypertension Qualified Codes: I10 - Essential ( primary) hypertension Anemia Anemia type: unspecified type Qualified Codes: D64.9 - Anemia, unspecified JERO TALAVERA MD December 04, 2016 22:39
[2016-12-04 23:00] VITALS: BP 147/101
[2016-12-05] MEDS ORDERED: AMLO10TA2 PO (20:46)
== END 2016-12-04 23:05 | disposition other institution (70) ==
LOC: ER 20:19
DX: H53.8 Other visual disturbances (principal); I12.0 Hypertensive chronic kidney disease with stage 5 chronic kidney disease or end stage renal disease; N18.6 End stage renal disease; D64.9 Anemia, unspecified; N02.8 Recurrent and persistent hematuria with other morphologic changes; Z99.2 Dependence on renal dialysis
CPT/HCPCS: 36415; 70450; 80048; 83735; 85027; 99285-25

== ENCOUNTER 2016-12-05 16:57 | Emergency (ER) | payer OTHER ==
[~2016-12-05] VITALS: Ht 162.6 cm; Wt 63.5 kg
--- NOTE | 2016-12-05 18:44 | PHYS DOC ---
Past Medical History Past Medical History: Renal Failure Additional Past Medical Histor: IgA nephropathy Past Surgical History: Other Additional Past Surgical Histo: Dialysis right upper chest Alcohol Use: Occasionally Drug Use: None Adult General Chief Complaint Chief Complaint: EYE PROBLEMS HPI HPI 25-year-old male presenting to the emergency department today reporting bilateral blurry vision. He reports this started about 3 days ago. He was seen last night for the same problem. He was recently diagnosed with kidney failure from IgA nephropathy and currently gets dialysis on Friday. He denies fevers chills. It was not sudden in onset. He describes it as a blurry vision. He denies it being like a curtain pulled down. Review of systems is negative for chest pain shortness of breath nausea vomiting fevers or chills. All other review of systems is negative unless otherwise noted in history of present illness. Review of Systems Review of Systems SEE ABOVE. Allergies Allergies Allergies Coded Allergies Type Severity Reaction Last Updated Verified No Known Drug Allergies 10/30/16 No Physical Exam Physical Exam Constitutional: Well developed, well nourished, no acute distress, non-toxic appearance. HENT: Normocephalic, atraumatic, bilateral external ears normal, oropharynx moist, no oral exudates, nose normal. Eyes: Eye Exam: Visual Acuity: Reports finger counting visual acuity in both eyes Visual Brand: Intact in all four quadrants bilaterally Lac ducts/glands: No swelling Lids w/ evertion: Normal, no foreign body Conj/Canute: Clear Anterior Chamber: Clear Retina exam: No obvious abnormality Neck: Normal range of motion, no tenderness, supple, no stridor. Cardiovascular:Heart rate regular rhythm, no murmur [] Lungs & Thorax: Bilateral breath sounds clear to auscultation Abdomen: Bowel sounds normal, soft, no tenderness, no masses, no pulsatile masses. [] Skin: Warm, dry, no erythema, no rash. Back: No tenderness, no CVA tenderness. Extremities: No tenderness, no cyanosis, no clubbing, ROM intact, no edema. [] Neurologic: Alert and oriented X 3, normal motor function, normal sensory function, no focal deficits noted. Psychologic: Affect normal, judgement normal, mood normal. [] Current Patient Data Vital Signs Vital Signs Date Time Temp Pulse Resp B/P (MAP) Pulse Ox O2 Delivery O2 Flow Rate FiO2 12/05/16 17:57 98.0 75 18 137/96 (110) 97 Room Air 98.0 Lab Values Laboratory Tests Test 12/05/16 18:40 White Blood Count 6.3 x10^3/uL (4.0-11.0) Red Blood Count 2.69 x10^6/uL (4.30-5.70) L Hemoglobin 8.0 g/dL (13.0-17.5) L Hematocrit 23.0 % (39.0-53.0) L Mean Corpuscular Volume 86 fL (79-100) Mean Corpuscular Hemoglobin 30 pg (25-35) Mean Corpuscular Hemoglobin Concent 35 g/dL (31-37) Red Cell Distribution Width 13.6 % (11.5-14.5) Platelet Count 150 x10^3/uL (140-400) Neutrophils (%) (Auto) 67 % (31-73) Lymphocytes (%) (Auto) 21 % (24-48) L Monocytes (%) (Auto) 9 % (0-9) Eosinophils (%) (Auto) 4 % (0-3) H Basophils (%) (Auto) 1 % (0-3) Neutrophils # (Auto) 4.2 x10^3uL (1.8-7.7) Lymphocytes # (Auto) 1.3 x10^3/uL (1.0-4.8) Monocytes # (Auto) 0.5 x10^3/uL (0.0-1.1) Eosinophils # (Auto) 0.2 x10^3/uL (0.0-0.7) Basophils # (Auto) 0.0 x10^3/uL (0.0-0.2) Sodium Level 141 mmol/L (136-145) Potassium Level 4.5 mmol/L (3.5-5.1) Chloride Level 105 mmol/L (98-107) Carbon Dioxide Level 29 mmol/L (21-32) Anion Gap 7 (6-14) Blood Urea Nitrogen 23 mg/dL (8-26) # Creatinine 6.6 mg/dL (0.7-1.3) H Estimated GFR (Cockcroft-Gault) 10.3 Glucose Level 99 mg/dL (70-99) Calcium Level 8.3 mg/dL (8.5-10.1) L Laboratory Tests 12/05/16 18:40 Laboratory Tests 12/05/16 18:40 EKG EKG [] Radiology/Procedures Radiology/Procedures [] Course & Med Decision Making Course & Med Decision Making Pertinent Labs and Imaging studies reviewed. (See chart for details) [] 25-year-old gentleman presenting to the emergency department with blurry vision bilaterally. Head CT and blood work obtained which was unremarkable. I discussed the case with Dr. galindo our senior economist who recommended transfer to higher level of care. Blood work showed renal disease but chronic. Head CT unremarkable. he has a chronic anemia as well. I discussed the case with the [facility] triage snyder. Accepting physician Dr. Levin. Patient transferred by private vehicle. Dragon Disclaimer Dragon Disclaimer This electronic medical record was generated, in whole or in part, using a voice recognition dictation system. Departure Departure Impression: Primary Impression: Blurry vision, bilateral Disposition: 02 TRANSFER [facility] ([facility]) Condition: STABLE Referrals: NO PCP (PCP) JOSE HARRISON MD December 05, 2016 18:44
[2016-12-05 18:48] LABS: BASO % 1 % (0-3); EOS % 4 % (0-3); LYMPH # 1.3 x10^3/uL (1.0-4.8); LYMPH % 21 % (24-48); MEAN CORPUSCULAR HEMOGLOBIN 30 pg (25-35); MEAN CORPUSCULAR HGB CONC 35 g/dL (31-37); MEAN CORPUSCULAR VOLUME 86 fL (79-100); MONO % 9 % (0-9); NEUT % 67 % (31-73); PLATELET COUNT 150 x10^3/uL (140-400); RED BLOOD COUNT 2.69 x10^6/uL (4.30-5.70); RED CELL DISTRIBUTION WIDTH 13.6 % (11.5-14.5); WHITE BLOOD COUNT 6.3 x10^3/uL (4.0-11.0)
[2016-12-05 19:00] LABS: CALCIUM 8.3 mg/dL (8.5-10.1); CREATININE 6.6 mg/dL (0.7-1.3); GFR 10.3; POTASSIUM 4.5 mmol/L (3.5-5.1)
--- NOTE | 2016-12-05 19:46 | RAD ---
CT HEAD WO CONTRAST History: Visual changes Comparison: December 04, 2016 Technique: Noncontrast [address] images were acquired from the skull base to the vertex. Exposure: One or more of the following individualized dose reduction techniques were utilized for this examination: 1. Automated exposure control 2. Adjustment of the mA and/or kV according to patient size 3. Use of iterative reconstruction technique. Findings: No acute extra-axial or parenchymal hemorrhage is identified. There is no significant intra-axial mass effect, midline shift, or extra-axial fluid collection. The cortez-white differentiation of the major vascular territories is preserved. The ventricles, sulci, and cisterns are within normal limits in size and configuration. Mastoid air cells on the right are aerated. Left mastoid air cells are not pneumatized, opacification of likely limited pneumatized left mastoid air cells. There is likely at least [id number] left maxillary sinus mucosal thickening which is not fully included. No acute calvarial abnormality is identified. There is again some nonspecific soft tissue density in the posterior parietal scalp region. Impression: 1. No acute intracranial abnormality is identified. If there is concern for evolving or acute ischemia, followup CT or MRI could be beneficial. 2. There is likely opacification of the pneumatized left mastoid air cells. There is left maxillary sinus mucosal thickening. Electronically signed by: Silas Jacinto MD (12/05/2016 7:43 PM)
[2016-12-05 20:34] VITALS: BP 147/101
[2016-12-05] MEDS ORDERED: AMLO10TA2 PO (20:46)
== END 2016-12-05 21:49 | disposition short-term general hospital (02) ==
LOC: ER 16:57
DX: H53.8 Other visual disturbances (principal); N19 Unspecified kidney failure; Z99.2 Dependence on renal dialysis
CPT/HCPCS: 36415; 70450; 80048; 85027; 99285-25